=== PATIENT | male | born 1955 | race Caucasian/White ===

== ENCOUNTER 2020-03-03 12:40 | Emergency (ER) | payer MEDICAID, SELFPAY ==
[2020-03-03 12:44] VITALS: BP 109/74; PULSE 76; RESP 16; TEMP 36.6; O2SAT 97; BMI 32.5
--- NOTE | 2020-03-03 12:51 | ED_ITS ---
HPI - Abdominal Pain General: Chief Complaint: Abdominal Pain Stated Complaint: lower abd pain Time Seen by Provider: 03/03/20 12:43 Source: patient Mode of arrival: ambulatory Limitations: no limitations History of Present Illness: HPI narrative: Patient is a very nice 65-year-old gentleman here for complaints of lower abdominal pain that initially began a few days ago. Patient states he initially noticed the pain when he was outside working and especially with bending over. Patient states pain was initially intermittent in nature however throughout today has been more constant and worsened by bumps in the road on the way here. He reports normal bowel movements. Patient has not had any nausea or vomiting. He does report some mild dysuria without urgency, hesitancy, hematuria. He has no penile discharge, testicular pain/swelling. Patient states he has a previous history of diverticulitis that has presented similarly. He has not been running fevers. MD elicited complaint: abdominal pain Pertinent past history: diverticulitis Onset (ago): day(s) Pain Consistency: intermittent Location: Suprapubic Severity: moderate Radiation: none Migration to: no migration Relieving factors: nothing Associated Symptoms: Reports no associated symptoms and dysuria; Denies bloating, change in bowel habits, change in stool character, chills, coffee ground emesis, constipation, diarrhea, fever(s), heartburn, hematochezia, hematemesis, fecal incontinence, melena, nausea and vomiting Review of Systems Const: Denies: fever, chills, body aches, change in appetite, change in weight, fatigue, malaise or night sweats Card: Denies: chest pain Resp: Denies: shortness of breath GI: Reports: abdominal pain; Denies: nausea, vomiting, vomiting blood, coffee grounds in vomit, heartburn/indigestion, feeling full early, diarrhea, constipation, bloating, fecal incontinence, change in bowel habits, painful bowel movements, rectal pain, rectal swelling, rectal itching, change in stool character, blood in stool, black tarry stool, white/light colored stool or fatty stool : Reports: painful urination; Denies: flank pain, difficulty urinating, urinary frequency, urinary urgency, urinary hesitancy, change in urine stream, urinary incontinence, genital pain, genital lesion, penile discharge, testicular pain, testicular mass or scrotal swelling Musc: Denies: neck pain or back pain Skin/Breast: Denies: rash Neuro: Denies: headache, numbness in extremities, weakness in extremities or changes in sensation PFSH ED PFSH: Social History Smoking and tobacco status: former smoker Quit status (tobacco): has quit using tobacco Alcohol intake: current Alcohol intake frequency: holidays/special occasions only Physical Exam Const: COMMON NORMALS: no apparent distress, oriented x3, no limitations and alert NUTRITIONAL APPEARANCE: overweight HENMT: COMMON NORMALS: normocephalic and head/scalp atraumatic HEAD & SCALP: normocephalic and atraumatic Resp: COMMON NORMALS: normal respiratory effort and clear to auscultation bilaterally AUSCULTATION: clear to auscultation bilaterally Cardio: COMMON NORMALS: regular rate and regular rhythm RATE: regular rate RHYTHM: regular rhythm GI: COMMON NORMALS: normal to inspection, nondistended, normoactive bowel sounds, no hepatosplenomegaly and no masses AUSCULTATION: Yes normoactive bowel sounds PALPATION: Yes tender (suprapubic ) Details: LLQ and RLQ and Yes no hepatosplenomegaly : COMMON NORMALS: Yes no CVA tenderness BLADDER/KIDNEY EXAM: Yes no CVA tenderness Back/Pelvis: COMMON NORMALS: no CVA tenderness Extremity: COMMON NORMALS: normal to inspection Neuro: COMMON NORMALS: oriented x3 SENSORIUM/ORIENTATION: Yes alert Skin: COMMON NORMALS: no rashes or lesions noted GENERAL SKIN EXAM: no rashes or lesions noted Course Vital Signs: Vital signs: Vital Signs Temperature 97.8 F 03/03/20 12:44 Pulse Rate 70 03/03/20 14:36 Respiratory Rate 16 03/03/20 14:36 Blood Pressure 148/88 03/03/20 14:36 Pulse Oximetry 97 03/03/20 14:36 MDM - Abdominal Pain Lab Data: Labs: Lab Results 03/03/20 03/03/20 03/03/20 Range/Units 12:53 12:53 13:09 WBC 11.4 H (4.0-10.0) 10^3/ uL RBC 4.93 (4.1-5.3) 10^6/u L Hgb 15.9 (11.7-16.6) g/dL Hct 48.0 (42.0-52.0) % MCV 97.4 H (80-94) fL MCH 32.3 (28.0-34.0) pg MCHC 33.1 (30.0-36.0) g/dL RDW 13.7 (12.1-15.1) % Plt Count 199 (130-400) 10^3/c mm MPV 11.3 H (7.4-10.4) fL Neut % (Auto) 72.5 % Lymph % (Auto) 16.3 % Piute % (Auto) 9.3 % Eos % (Auto) 1.2 % Baso % (Auto) 0.4 % Neut # (Auto) 8.3 H (1.8-7.7) 10^3/u L Lymph # (Auto) 1.9 (0.8-4.8) 10^3/u L Piute # (Auto) 1.1 H (0.2-0.9) 10^3/u L Eos # (Auto) 0.1 (0.0-0.8) 10^3/u L Baso # (Auto) 0.1 (0.0-0.1) 10^3/u L Nucleated RBC % (a uto) 0 % Nucleated RBCs # 0.0 /100WBC Sodium 136 (136-145) mmol/L Potassium 5.0 (3.5-5.1) mmol/L Chloride 98 (98-107) mmol/L Carbon Dioxide 25 (22-29) mmol/L Anion Gap 18.0 (5-19) BUN 20 (8-23) mg/dL Creatinine 1.0 (0.7-1.2) mg/dL GFR Calculation 75.2 L (90-130) mL/min Glucose 121 H (65-115) mg/dL Calculated Osmolal ity 280 L (285-295) mOsm/k g Calcium 9.7 (8.5-10.5) mg/dL Magnesium 1.8 (1.7-2.3) mg/dL Total Bilirubin 1.3 H (0.15-1.2) mg/dL AST 19 (0-40) U/L ALT 20 (0-41) U/L Alkaline Phosphata se 59 (40-130) IU/L Total Protein 7.3 (6.6-8.7) g/dL Albumin 4.2 (3.5-5.2) g/dL Globulin 3.1 (1.3-4.6) g/dL Lipase 10 L (13-60) U/L Urine Color Yellow (Yellow) Urine Appearance Clear (CLEAR) Urine pH 5 (5-7) Ur Specific Gravit y 1.020 (1.005-1.030) Urine Protein Trace (Negative) Urine Glucose (UA) Norm (Normal) Urine Ketones 1+ H (Negative) Urine Blood Neg (Negative) Urine Nitrate Negative (Negative) Urine Bilirubin 1+ H (NEGATIVE) Urine Urobilinogen 1 H (Negative) mg/dL Ur Leukocyte Margo ase Negative (Negative) Urine RBC None (0-2) /hpf Urine WBC 0-4 H (0-5) /hpf Ur Squamous Epith Cells None (0-5) Urine Bacteria 1+ H (NONE) Hyaline Casts 10-15 H Urine Mucus 3+ Imaging Data ^: CT Abd/Pel: Radiologist's impression: [place] [address] CT Scan Report Signed Patient: Yayo Rivera Unit #: [id number] : 1955 Age/Sex: 65 / M ADM Date: 03/03/20 Loc: ER Room/Bed: Attending Dr: Ordering Provider/Ordering MD: Fabi Sevilla Date of Service: 03/03/20 Procedure(s): CT abdomen pelvis w con* [id number] Accession Number(s): [id number] Report Number: [id number] PROCEDURE INFORMATION: Exam: CT Abdomen And Pelvis With Contrast Exam date and time: 03/03/2020 1:14 PM Age: 65 years old Clinical indication: Abdominal pain; Localized; Prior surgery; Surgery date: 6+ months; Surgery type: Ulcer; Patient HX: C/O lower abd/pelvic pain x 3 days - HX of diverticulitis; Additional info: Lower abdominal pain; Previous HX diverticulitis TECHNIQUE: Imaging protocol: Computed tomography of the abdomen and pelvis with intravenous contrast. Total DLP: 1921.99 mGy-cm Radiation optimization: All CT scans at this facility use at least one of these dose optimization techniques: automated exposure control; mA and/or kV adjustment per patient size (includes targeted exams where dose is matched to clinical indication); or iterative reconstruction. Contrast material: OMNI 300; Contrast volume: 95 ml; Contrast route: 20G; COMPARISON: No relevant prior studies available. FINDINGS: Liver: Multiple low-density hepatic cysts of varying size. The largest left lobe cyst measures 6.2 cm. Gallbladder and bile ducts: Normal. No calcified stones. No ductal dilation. Pancreas: Normal. No ductal dilation. Spleen: Normal. No splenomegaly. Adrenals: Small bilateral approximately 1 cm solid adrenal nodules which are too small to characterize but probably benign adenomas. Kidneys and ureters: Multiple bilateral renal cysts of varying size. The largest right renal lower pole cyst measures 3.8 cm. Probable hyperdense 3.7 cm right renal lower pole cyst medially (series 2, axial image 42). A right renal ultrasound could further evaluate as clinically indicated. The largest left renal lower pole cysts measure 2.8 and 2.3 cm. Stomach and bowel: Moderate sigmoid colon diverticulosis changes. Distal sigmoid colon also displays some wall thickening and adjacent fat haziness consistent with mild acute diverticulitis. Appendix: No evidence of appendicitis. Intraperitoneal space: No free air. No significant fluid collection. Vasculature: Mild aortoiliac atherosclerotic calcification. Lymph nodes: Unremarkable. No enlarged lymph nodes. Bladder: Unremarkable as visualized. Reproductive: Focal prostatic calcification. Bones/joints: L5-S1 degenerative disc disease, chronic. Soft tissues: Unremarkable. CT/CT abdomen pelvis w con* [id number] IMPRESSION: 1.) Mild acute sigmoid diverticulitis. 2.) Multiple hepatic and renal cysts as described above. Majority of cysts have a benign appearance. Probable hyperdense 3.7 cm right renal lower pole cyst medially (series 2, axial image 42). A right renal ultrasound could further evaluate as clinically indicated. 3.)Small bilateral approximately 1 cm solid adrenal nodules which are too small to characterize but probably benign adenomas. Radiation Dose CTDIVOL = (mGy): DLP = 1921.99 (mGy-cm) Dictated By: Jaycob Smith MD Signed By: Jaycob Smith MD Signed Date/Time: 03/03/201413 DD/ 11 Discharge Plan Discharge Patient Disposition: Home, Self-Care Clinical Impression: Diverticulitis of sigmoid colon Condition: Stable Prescriptions: New ciprofloxacin HCl 500 mg tablet 500 mg PO Q12H Qty: 14 RF: 0 metronidazole 500 mg tablet 500 mg PO Q8H 7 Days Qty: 21 RF: 0 hydrocodone-acetaminophen 5-325 mg tablet 1 tab PO Q6H PRN (Reason: pain) Qty: 14 RF: 0 No Action aspirin [Adult Low Dose Aspirin] 81 mg tablet,delayed release (DR/EC) 81 mg PO DAILY RF: 0 vitamin B complex [B Complex-Vitamin B12] Tablet 1 tab PO QAM RF: 0 carvedilol 25 mg tablet 25 mg PO BID RF: 0 Entresto 49-51 mg tablet 1 tab PO BID RF: 0 magnesium oxide 500 mg tablet 500 mg PO DAILY RF: 0 prednisone 20 mg tablet 20 mg PO DAILY PRN (Reason: gout) RF: 0 ascorbic acid (vitamin C) 1,000 mg tablet 1 gm PO DAILY RF: 0 spironolactone 25 mg tablet 37.5 mg PO DAILY Qty: 45 RF: 6 Xarelto 20 mg tablet 20 mg PO DAILY Qty: 30 RF: 3 atorvastatin 20 mg tablet 20 mg PO DAILY Qty: 90 RF: 3 alprazolam 0.5 mg tablet 0.5 mg PO DAILY PRN (Reason: anxiety) Qty: 30 RF: 0 dibucaine 1 % ointment 1 applic CO QID PRN (Reason: pain) Qty: 56.7 RF: 0 Atrovent HFA 17 mcg/actuation HFA aerosol inhaler 2 puff INHALATION DAILY Qty: 12.9 RF: 3 cholecalciferol (vitamin D3) 1,250 mcg (50,000 unit) capsule 50,000 unit PO Q7D RF: 0 allopurinol 100 mg tablet 100 mg PO BID RF: 0 trazodone 100 mg tablet 100 mg PO BEDTIME RF: 0 Discharge Orders: Discharge Order (Routine); Ordered 03/03/20 Ordered By: Fabi Sevilla Referrals: Wilman Larios MD [Primary Care Provider] - Patient Instructions: Diverticulitis (ED) Activity Restrictions/Additional Instructions: Begin your antibiotics promptly. Return to the emergency department for any worsening pain, nausea and vomiting keeping you from holding down your antibiotics, fevers greater than 100.4, or any other concerns you may have. I hope you begin to feel better soon. Discharge Date/Time: 03/03/20 14:37 Coding Level of Care Code ED Vp [employer] [facility] Fwd Exam Comprehensive
[2020-03-03 12:57] LABS: Basophils # 0.1 10^3/uL (0.0-0.1); Basophils % 0.4 %; Eosinophils # 0.1 10^3/uL (0.0-0.8); Eosinophils % 1.2 %; Hemoglobin 15.9 g/dL (11.7-16.6); Lymphocytes # 1.9 10^3/uL (0.8-4.8); Lymphocytes % 16.3 %; Mean Corpuscular HGB Conc 33.1 g/dL (30.0-36.0); Mean Corpuscular Hemoglobin 32.3 pg (28.0-34.0); Mean Corpuscular Volume 97.4 fL (80-94); Mean Platelet Volume 11.3 fL (7.4-10.4); Monocytes # 1.1 10^3/uL (0.2-0.9); Monocytes % 9.3 %; Neutrophils # 8.3 10^3/uL (1.8-7.7); Neutrophils % 72.5 %; Nucleated Red Blood Cells % 0 %; Platelet Count 199 10^3/cmm (130-400); Red Blood Count 4.93 10^6/uL (4.1-5.3); Red Cell Distribution Width 13.7 % (12.1-15.1); White Blood Count 11.4 10^3/uL (4.0-10.0)
[2020-03-03 13:20] LABS: Alanine Aminotransferase 20 U/L (0-41); Albumin Level 4.2 g/dL (3.5-5.2); Alkaline Phosphatase 59 IU/L (40-130); Aspartate Amino Transferase 19 U/L (0-40); Blood Urea Nitrogen 20 mg/dL (8-23); Calcium 9.7 mg/dL (8.5-10.5); Carbon Dioxide 25 mmol/L (22-29); Chloride 98 mmol/L (98-107); Globulin 3.1 g/dL (1.3-4.6); Glomerular Filtration Rate 75.2 mL/min (90-130); Glucose 121 mg/dL (65-115); Lipase 10 U/L (13-60); Magnesium 1.8 mg/dL (1.7-2.3); Osmolality Calculated 280 mOsm/kg (285-295); Sodium 136 mmol/L (136-145); Total Bilirubin 1.3 mg/dL (0.15-1.2); Total Protein 7.3 g/dL (6.6-8.7)
[2020-03-03 13:23] LABS: Bilirubin Urine 1+ (NEGATIVE); Blood Urine Neg (Negative); Glucose Urine UA Norm (Normal); Ketones Urine 1+ (Negative); Leukocyte Esterase Urine Negative (Negative); Nitrate Urine Negative (Negative); Protein Urine Trace (Negative); Urine Appearance Clear (CLEAR); Urine Color Yellow (Yellow); Urobilinogen Urine 1 mg/dL (Negative); pH Urine 5 (5-7)
[2020-03-03 13:28] LABS: Add Urine Culture? No; Bacteria Urine 1+; Mucus Urine 3+; WBC Urine 0-4 /hpf (0-5)
[2020-03-03] MEDS: iohexol 300 mg/mL 100 mL Btl IV (13:34)
[2020-03-03 14:36] VITALS: BP 148/88; PULSE 70; RESP 16; O2SAT 97
== END 2020-03-03 14:37 | disposition home or self-care (01) ==
PROVIDERS: Emergency Medicine; Emergency Provider Physician Assistant; Family Provider Internal Medicine; PCP Internal Medicine
DX: K57.32 Diverticulitis of large intestine without perforation or abscess without bleeding (principal); Z79.82 Long term (current) use of aspirin; Z87.891 Personal history of nicotine dependence
CPT/HCPCS: 12345; 74177; 80053; 81001; 83690; 83735; 85025; 99282; 99283; Q9967

== ENCOUNTER → 2020-11-13 10:45 | Outpatient (BNVA) | payer MEDICAID, SELFPAY | PROVIDERS: Family Provider Internal Medicine; PCP Internal Medicine; Visit Provider Internal Medicine Cardiovascular Disease | DX: I49.3 Ventricular premature depolarization (principal); I50.9 Heart failure, unspecified; I42.9 Cardiomyopathy, unspecified; I50.22 Chronic systolic (congestive) heart failure; I48.0 Paroxysmal atrial fibrillation; I42.0 Dilated cardiomyopathy; I25.10 Atherosclerotic heart disease of native coronary artery without angina pectoris; I10 Essential (primary) hypertension; E78.5 Hyperlipidemia, unspecified | CPT/HCPCS: 80053; 83735; 83880 ==

== ENCOUNTER 2020-12-02 14:38 | Outpatient (CLI) | payer MEDICAID, SELFPAY ==
--- NOTE | 2020-12-02 15:00 | USCV_ITS ---
Yayo Rivera Age: 65 Gender: M : 1955 Exam Date: 12/02/2020 14:51 Ordering Phys: Renetta Mejia MD ([email or web address]) Technologist: Lashae Alva [place]am [place] [facility] [place]ication: IRREGULAR HEART RATE BP: / HR: 80 Rhythm: PVCs Technical Quality: Adequate MEASUREMENTS (Male / Female) Normal Values 2D ECHO LV Diastolic Diameter PLAX 5.2 cm 4.2 - 5.9 / 3.9 - 5.3 cm LV Systolic Diameter PLAX 4.1 cm LV Chamber Size 4.5 cm IVS Diastolic Thickness 1.8 cm 0.6 - 1.0 / 0.6 - 0.9 cm IVS Systolic Thickness 1.8 cm LVPW Diastolic Thickness 1.5 cm 0.6 - 1.0 / 0.6 - 0.9 cm LVPW Systolic Thickness 1.8 cm RV Chamber Size 3.0 cm LVOT Diameter 2.0 cm LV Ejection Fraction 2D Teich 43.7 % LV Ejection Fraction MOD 2C 67.7 % LV Ejection Fraction 2C AL 68.6 % LA Diameter 4.6 cm LA Width 3.6 cm LA Height 5.4 cm RA Width 3.6 cm RA Height 5.4 cm Aorta at Sinotubular Diameter 3.7 cm M-MODE LV Diastolic Diameter MM 6.4 cm 4.2 - 5.9 / 3.9 - 5.3 cm LV Systolic Diameter MM 5.0 cm LV Ejection Fraction MM Teich 42.0 % IVS Diastolic Thickness MM 1.5 cm 0.6 - 1.0 / 0.6 - 0.9 cm IVS Systolic Thickness MM 1.7 cm LVPW Diastolic Thickness MM 1.5 cm 0.6 - 1.0 / 0.6 - 0.9 cm LVPW Systolic Thickness MM 1.5 cm Aortic Annulus Diameter 4.1 cm LA Ao Ratio MM 1.2 MV E Point Septal Separation 1.3 cm DOPPLER AV Peak Velocity 106.3 cm/s LVOT Peak Velocity 56.0 cm/s AV Area Cont Eq vti 1.7 cm squared AV Area Cont Eq pk 1.7 cm squared MV Area PHT 4.4 cm squared Mitral E to A Ratio 1.9 MV E' Velocity 38.5 cm/s Mitral E to MV E' Ratio 7.1 Mitral E to LV E' Lateral Ratio 5.9 Mitral E to LV E' Septal Ratio 9.0 TR Peak Velocity 176.7 cm/s TR Peak Gradient 12.5 mmHg TR Mean Velocity 109.0 cm/s TR Mean Gradient 5.6 mmHg TR Velocity Time Integral 28.0 cm TV Peak E Velocity 44.0 cm/s Right Atrial Pressure 3.0 mmHg Pulmonary Artery Systolic Pressu 15.5 mmHg PV Peak Velocity 54.0 cm/s RV Acceleration Time 0.1 s RV Ejection Time 0.3 s RV AcT/ET 0.5 FINDINGS Left Ventricle Mildly increased left ventricular cavity size. Moderately decreased left ventricular systolic function. Left ventricular ejection fraction is estimated at 30-35 %. Moderate global left ventricular hypokinesis. Abnormal septal motion consistent with conduction abnormality. Right Ventricle Upper normal right ventricular size and systolic function. Right Atrium Upper normal right atrial size. Left Atrium Mildly increased left atrial size. Mitral Valve Structurally normal mitral valve. No mitral valve stenosis. No mitral valve regurgitation. Aortic Valve Structurally normal trileaflet aortic valve. No aortic valve stenosis. Tricuspid Valve Structurally normal tricuspid valve. Trace to mild tricuspid valve regurgitation. Pulmonic Valve Pulmonic valve not well visualized. Pericardium No pericardial effusion. Aorta Aorta not well visualized. CONCLUSIONS 1. Mildly increased left ventricular cavity size. Moderately decreased left ventricular systolic function. Left ventricular ejection fraction is estimated at 30-35 %. Moderate global left ventricular hypokinesis. 2. Upper normal right ventricular size and systolic function. 3. No significant valvular abnormality. 4. When compared to previous study dated 05/04/2019, left ventricular systolic function has decreased. Frequent PVC's noted throughout the study. Renetta Mejia MD (Electronically Signed) Final Date: 08 December 2020 15:13 S
== END 2020-12-02 14:39 | disposition home or self-care (01) ==
LOC: US 14:40
PROVIDERS: PCP Internal Medicine; Visit Provider Internal Medicine Cardiovascular Disease
DX: I49.3 Ventricular premature depolarization (principal)
CPT/HCPCS: 93306

== ENCOUNTER 2021-01-13 14:26 | Outpatient (CLI) | payer MEDICARE, MEDICAID, SELFPAY ==
[2021-01-13 15:07] LABS: Basophils # 0.1 10^3/uL (0.0-0.1); Basophils % 0.7 %; Eosinophils # 0.1 10^3/uL (0.0-0.8); Hemoglobin 14.6 g/dL (11.7-16.6); Lymphocytes # 2.2 10^3/uL (0.8-4.8); Lymphocytes % 30.3 %; Mean Corpuscular Volume 97.3 fL (80-94); Mean Platelet Volume 11.3 fL (7.4-10.4); Monocytes # 0.7 10^3/uL (0.2-0.9); Neutrophils # 4.03 10^3/uL (1.8-7.7); Neutrophils % 56.9 %; Nucleated Red Blood Cells % 0 %; Platelet Count 217 10^3/cmm (130-400); Red Blood Count 4.42 10^6/uL (4.1-5.3); Red Cell Distribution Width 12.9 % (12.1-15.1); White Blood Count 7.1 10^3/uL (4.0-10.0)
[2021-01-13 15:15] LABS: INR 1.92 (0.83-1.21); Prothrombin Time (Patient) 22.7 Seconds (12.0-15.1)
[2021-01-13 15:20] LABS: Anion Gap 12.4 (5-19); Blood Urea Nitrogen 22 mg/dL (8-23); Calcium 8.5 mg/dL (8.5-10.5); Carbon Dioxide 27 mmol/L (22-29); Chloride 103 mmol/L (98-107); Glomerular Filtration Rate 75.2 mL/min (90-130); Glucose 93 mg/dL (65-115); Osmolality Calculated 289 mOsm/kg (285-295); Potassium 4.4 mmol/L (3.5-5.1); Sodium 138 mmol/L (136-145)
== END 2021-01-13 14:27 | disposition home or self-care (01) ==
LOC: LAB 14:39
PROVIDERS: PCP Internal Medicine; Visit Provider Internal Medicine Cardiovascular Disease
DX: Z01.818 Encounter for other preprocedural examination (principal); I25.10 Atherosclerotic heart disease of native coronary artery without angina pectoris
CPT/HCPCS: 36415; 80048; 85025; 85610; 87635

== ENCOUNTER 2021-01-17 09:11 | Observation (INO) | payer MEDICARE, MEDICAID, SELFPAY ==
[2021-01-17] VITALS (52 sets, daily range): BP systolic 97–133; BP diastolic 64–94; PULSE 67–91; RESP 7–28; TEMP 36.8–37; O2SAT 93–99; BMI 34.2
[2021-01-17] MEDS: diphenhydrAMINE 50 mg Capsule PO (06:40)
--- NOTE | 2021-01-17 07:00 | XACV_ITS ---
Ht: 185 cm Wt: 124 kg BSA: 2.57 m2 Gender: Male : 1955 Any Known Allergies: Other Exam Priority: Routine Procedure(s): Procedure Description: Diagnostic procedure Procedure Description: Left Heart Catheterization Procedure Description: Left ventriculography Procedure Description: O2 saturation Diagnostic Cath Status: Elective Diagnostic Findings * Right heart cath findings: RA pressure: 23/19(20)mmHg RV pressure: 40/10, 21 mmHg PA pressure: 35/23, 30 mmHg PCW: 25/25, 23 mmHg Cardiac output by Madelin: 5.49 L/min Cardiac index by Madelin: 2.2 L/min/min meter2 TP mmHg PVR: 1.27 Wood units. * No significant disease noted in the Left Main, LAD, Circumflex, or RCA coronary arteries. * Coronary angiography shows right dominance. Conclusions 1. Elevated right and left sided cardiac pressures. 2. Non ischemic cardiomyopathy. 3. No significant disease noted in the Left Main, LAD, Circumflex, or RCA coronary arteries. RCA has an anterior take off. 4. Mild post capillary pulmonary hypertension. 5. Moderate left ventricular systolic dysfunction. Ejection fraction of 35%. Recommendations * Guideline directed medical therapy. * Aggresive risk factor control. * Uptitrate diuretic therapy. * Outpatient cardiology follow up. Diagnostic RX Recommendation: medical therapy and/or counseling Ventriculography Ejection Fraction: 35.0 % Pressures Phase:Rest AO : 112 / 71 ( 89 ) @ 3:27:00 AM 112 / 62 ( 76 ) @ 3:27:00 AM LV : 106 / 14 / @ 3:26:00 AM 107 / 14 / @ 3:26:00 AM 115 / 12 / @ 3:27:00 AM 113 / 12 / @ 3:27:00 AM RV : 40 / 10 / @ 3:05:00 AM PA : 35 / 23 ( 30 ) @ 3:04:00 AM RA : a wave = v wave = mean = 20 @ 3:01:00 AM O2 Content Phase:Rest PA : O2 Content O2: 68.1 @ 3:27:00 AM Saturations Phase:Rest AO : 97 @ 3:27:00 AM PA : 68 @ 3:27:00 AM Cardiac Output Phase:Rest Madelin : 5 @ 3:27:00 AM Madelin Cardiac Index: 2 @ 3:27:00 AM Valves Phase:DefaultPhase AV : 0.0 @ 8:34:59 AM AV Mean Gradient: 0.0 @ 8:34:59 AM Clinical Evaluation EBL: 5mL-10mL Procedural Details Procedure Consent Obtained. Admit Source: Out Patient. Pre-Procedure Time Out. Identified patient by full name and date of as verbalized by the patient/guarantor. Does the consent match the physician's order: Yes. Accurate & Complete Informed Consent: Yes. Inpatient/Outpatient History & Physical on Chart: Yes. If H&P is completed, is and addenduem needed: N/A; If yes, is the addendum complete: N/A. Visualize and Verify Site with Patient/Guarantor: N/A. Relevant Radiology Images available: N/A. Pre-op teaching completed and patient verbalized understanding. The risks, benefits, and alternatives of sedation and/or procedure were discussed by physician. The patient agrees to continue. Procedure started. Correct patient, site and procedure confirmed by cath team. PERRLA. Strong, equal hand criminal psychologist bilaterally. Lungs clear x 5 lobes. IV Site on Arrival: 20 gauge in the right anticubital. Pre Procedural Pulses: bilateral dorsalis pedis was 2+. Pre Procedural Pulses: bilateral posterior tibial was Doppled. Pre Procedural Pulses: bilateral radial was 2+. Oxygen started at 2liters/min via nasal canula. bilateral groins was prepped with chloroprep then draped in the usual sterile fashion. right radial was prepped with chloroprep then draped in the usual sterile fashion. Baseline sample Acquired. HR: 101 BPM. Physician notified. Physician arrived. Physician scrubbed in. Immediate Pre-Procedure Time Out. Correct Patient: Yes; Correct Procedure: Yes; Correct Site: Yes; Correct Patient Position: Yes; Correct Supplies: Yes; Dried Flammable Prep: Yes; Blood Products Available: N/A;. sheath wire going through IV catheter. IV catheter out. Lidocaine 1% infiltrated to the right brachial. Arterial access obtained. Lancaster-Oniel MON catheter inserted. Lancaster-Oniel out. Lidocaine 1% infiltrated to the right radial. Arterial access obtained. drawing AO sat. A 5 icelandic TIG catheter in over wire. Multiple views taken of left coronary artery. Catheter redirected to the RCA. Multiple views taken of right coronary artery. Catheter out. A 5 icelandic 3DRC catheter in over wire. Catheter out. A 6 icelandic Angled Pig catheter in over wire. EDP Sample taken: LV 106/14,21; HR: 76 BPM; SpO2: 99%. LV gram performed in MAZA @ 10 mL/second for a total of 30 mL. EDP Sample taken: LV 115/12,22; HR: 77 BPM; SpO2: 99%. Pullback taken: LV 113/12,19; AO 112/71(89); Mean: 0mmHg, Peak to Peak: 0mmHg, SEP: 10sec/min; HR: 78 BPM; SpO2: 99%. Catheter out. TR band placed. Hemostasis obtained. Sheath(s) removed and manual pressure held until hemostasis was achieved. Sterile 4x4 and Op-site applied to the puncture site. No oozing or hematoma noted. Post sheath removal instructions were given and the patient verbalized understanding. Post Procedure: Pulses reassessed and unchanged. PERRLA. Strong, equal hand criminal psychologist bilaterally. No VTE prophylaxis required. Medication's Wasted: Other = versed 1 mg. Medication's Wasted: Nitro = 49.8 mg. Medication's Wasted: Heparin = 1000 units. Medication's Wasted: Lidocaine 1% = 18 mL. Total IV fluids: 75.4 mL. Contrast type used: Visipaque 320 mgI/mL, 500 mL bottle. Contrast Material : Visipaque 119 ml. A TR Band was successful obtaining hemostatsis at the Right Radial artery insertion site. A Manual Compression was successful obtaining hemostatsis at the Right Brachial Vein insertion site. [facility] Clinical Fraility Score: 3: Managing Well. 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 Chest Pain Symptom Assessment: Atypical Angina. Cardiovascular Instability: No,. Post-op diagnosis:non obstructive CAD, non ischemic cardiomyopathy. Complications: none. Estimated blood loss: 5mL-10mL. Procedure completed. Patient transferred by wheelchair to 1st floor. Vital chart was stopped. Access Site Site: Right Brachial Vein Sheath Size: 6 Fr Hemostasis Method: Manual Compression Hemostasis Success: Successful Site: Right Radial artery Sheath Size: 6 Fr Hemostasis Method: TR Band Hemostasis Success: Successful Procedure Medications Start: 7:56 AM Stop: 7:56 AM Medication: Versed Amount: 1 mg Route: I.V. Start: 7:57 AM Stop: 7:57 AM Medication: Fentanyl Amount: 50 mcg Route: I.V. Start: 8:06 AM Stop: 8:06 AM Medication: Versed Amount: 1 mg Route: I.V. Start: 8:06 AM Stop: 8:06 AM Medication: Fentanyl Amount: 50 mcg Route: I.V. Start: 8:11 AM Stop: 8:11 AM Medication: Nitrogylcerin Amount: 200 mcg Route: I.A. Start: 8:13 AM Stop: 8:13 AM Medication: Heparin Amount: 5000 units Route: I.V. Start: 8:23 AM Stop: 8:23 AM Medication: Versed Amount: 1 mg Route: I.V. I, the attending physician, have reviewed and verified all procedure medications. Yes, all medications given per verbal order History/Risk Factors Hypertension: Yes Dyslipidemia: Yes Report Signatures Finalized by Fernandez Hanley MD on 01/27/2021 05:48 PM
--- NOTE | 2021-01-17 07:32 | P.HP_ITS ---
Providers/Chief Complaint Admitting Physician: Fernandez Hanley MD Primary Care Provider: Wilman Larios MD Chief Complaint: Cardiac Catheterization History of Present Illness 65 yo man with PMHx of long standing atrial fibrillation x 15 years, s/p hybrid Maze (VATS) and atrial fibrillation ablation in Jun 2017. He was previously on Amiodaone, digoxin and lisinopril that was stopped eventually. He also has h/o nose bleeds with Edoxan and difficult to maintain INR with coumadin. HE underwent Hepatitis C treatment successfuly and has been free for last several months. He also has h/o nonischemic cardiomyopathy LVEF 30% in July 2017, peptic ulcer, COPD, hypertension, history of methamphetamine and tobacco abuse, gout, and underwent stress test that was normal. He also has COPD, gout,hypertension, insomnia, h/o gastric ulcer, anxiety/depression, obesity,adhesive capsulitis of left shoulder and diverticulitis. 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 Patient had recent Covid infection and since then he has been having symptoms of palpitations, feeling weak and significant dyspnea on exertion. Echocardiogram was performed that showed severely reduced LV systolic function of 30 to 35%. Patient also has frequent PVCs. Plan for right and left heart cath today. Review of Systems Narrative: CONSTITUTIONAL: No fever chills weight loss or gain or night sweats. [] HEENT: Normocephalic, atraumatic.[] RESPIRATORY: No cough, sputum, hemoptysis or wheezing.[] CARDIOVASCULAR: Has shortness of breath, edema, presyncope, no chest pain, PND, orthopnea GI: no nausea vomiting diarrhea. [] BIOLOGICAL TECHNICIAN: No numbness, tingling, weakness or loss of function in any part of the body. [] MUSCULOSKELETAL: No knee or joint pain or rashes. [] Medications/Allergies Home Medications Medication Instructions Recorded Confirmed Last Taken Type ascorbic acid (vitamin C) 1,000 mg 1 gm PO DAILY tab 11/15/19 01/16/21 01/16/21 09:30 History tablet aspirin 81 mg tablet,delayed 81 mg PO DAILY tab 11/15/19 01/16/21 01/17/21 05:00 History release magnesium oxide 500 mg tablet 500 mg PO DAILY tab 11/15/19 01/16/21 01/16/21 09:30 History prednisone 20 mg tablet 20 mg PO DAILY PRN tab 11/15/19 01/16/21 01/16/21 09:30 History vitamin B complex 1 tab PO QAM 11/15/19 01/16/21 01/16/21 09:30 History alprazolam 0.5 mg tablet 0.5 mg PO DAILY PRN #30 tab 08/05/20 01/16/21 01/16/21 21:00 Rx sacubitril 49 mg-valsartan 51 mg 1 tab PO BID #180 tab 10/04/20 01/16/21 01/16/21 09:30 Rx tablet spironolactone 25 mg tablet 12.5 mg .ROUTE .COMPLEX tab 11/13/20 01/16/21 01/16/21 09:30 History torsemide 20 mg tablet 20 mg PO DAILY #30 tab 11/15/20 01/16/21 01/16/21 09:30 Rx trazodone 100 mg tablet 100 mg PO BEDTIME #30 tab 11/21/20 01/16/21 01/16/21 21:00 Rx cholecalciferol (vitamin D3) 1,250 50,000 unit PO .weekly #4 cap 12/12/20 01/16/21 01/16/21 09:30 Rx mcg (50,000 unit) capsule ipratropium bromide 17 2 puff INHALATION DAILY #12.9 gm 12/20/20 01/16/21 01/16/21 09:30 Rx mcg/actuation HFA aerosol inhaler allopurinol 100 mg tablet 100 mg PO BID #60 tab 12/29/20 01/17/21 01/16/21 18:00 Rx rivaroxaban 20 mg tablet 20 mg PO DAILY #30 tab 12/30/20 01/16/21 01/16/21 09:30 Rx atorvastatin 20 mg tablet 20 mg PO DAILY #90 tab 01/03/21 01/16/21 01/16/21 21:00 Rx carvedilol 12.5 mg tablet 18.75 mg PO BID #90 tab 01/07/21 01/16/21 01/16/21 09:30 Rx potassium 99 mg PO DAILY 01/16/21 01/16/21 01/16/21 09:30 History Allergies Allergy/AdvReac Type Severity Reaction Status Date / Time diltiazem [From Cardize] Allergy Unknown ADR/ALGY-Hy Verified 12/10/20 15:16 potension PFSH Acute PFSH: Medical History Atrial fibrillation s/p hybrid Maze (VATS) and atrial fibrillation ablation in Jun 2017 Cardiomyopathy COPD (chronic obstructive pulmonary disease) Dyslipidemia HTN (hypertension) Surgical History H/O cardiac radiofrequency ablation H/O circumcision H/O colonoscopy 3 yrs ago, H/O heart surgery Maze H/O removal of cyst thyroid, testicle H/O umbilical hernia repair Family History Father Myocardial infarct Mother Aneurysm Grandmother Cancer liver Other CAD (coronary artery disease) Denies family history of Diabetes Anesthesia complication Bleeding disorder Social History Smoking and tobacco status: former smoker Quit status (tobacco): has quit using tobacco Alcohol intake: current Alcohol intake frequency: holidays/special occasions only Household members: family Marital status: Single Current occupational status: retired History of recent travel: No Vitals/I&O/Wt Last Vital Signs Temp 98.2 F 01/17/21 06:05 Pulse 67 01/17/21 06:05 Resp 18 01/17/21 06:05 BP 103/76 01/17/21 06:05 Pulse Ox 97 01/17/21 06:05 Weight last 48 hrs Weight 274 lb Physical Exam Narrative: EXAM NARRATIVE: GENERAL: Patient is alert, awake and oriented x3. [] NECK: No jugular vein distension. [] HEENT: No cyanosis. No icterus. No pallor. [] HEART: Regular S1 and S2. No murmur, rub or gallop. [] LUNGS: Clear to auscultate bilaterally. [] ABDOMEN: Soft, nontender and nondistended. Positive bowel sounds. No guarding, rebound or tenderness. [] CENTRAL NERVOUS SYSTEM: Grossly nonfocal. [] EXTREMITIES: Lower extremities with 1+ edema bilaterally. Pulses palpable in the lower extremities, both dorsalis pedis and posterior tibial. [] A&P Assessment and plan (1) PVC (premature ventricular contraction): Status: Acute (2) HTN (hypertension): Status: Acute Qualifiers: Hypertension type: essential hypertension Qualified Code(s): I10 - Essential (primary) hypertension (3) Dyslipidemia: Status: Acute (4) Cardiomyopathy: Status: Acute (5) Atrial fibrillation: Status: Acute Qualifiers: Atrial fibrillation type: paroxysmal Qualified Code(s): I48.0 - Paroxysmal atrial fibrillation Patient has recent drop in LV systolic function along with symptoms of worsening dyspnea on exertion. He also has frequent PVCs. Will evaluate with right and left heart cath. Risks and benefits of the procedure have been described. Risks including bleeding, infection, abnormal heart rhythm, kidney function worsening, heart attack, stroke or have been described. Patient understands the risks and benefits and wants to proceed with the procedure. Attestations Medical Necessity Statement*: Care not expected to cross 2 midnights. Patient here for right and left heart cath with possible percutaneous coronary intervention. Coding Level of Care Code Acute Engineer Remote Control Diesel for Imani Keeley Diagnoses PVC (premature ventricular contraction) I49.3 HTN (hypertension) I10 Hypertension type: essential hypertension Dyslipidemia E78.5 Cardiomyopathy I42.9 Atrial fibrillation I48.0 Atrial fibrillation type: paroxysmal
--- NOTE | 2021-01-17 08:45 | PC.NURSE ---
Received report from JOSE Reyes. Patient has TR band intact and pressure dressing to right brachial intact. No hematoma, no bleeding or oozing. Patient vital signs stable patient is alert and oriented. Patient has been educated on activity restrictions, and oriented to room and call jha. Will continue to monitor.
[2021-01-17] MEDS: pneumococcal (23 valent) SDV 0.5 mL IM (12:21)
--- NOTE | 2021-01-17 13:52 | PC.NURSE ---
TR band removed from R Radial, site is clean, no hematoma, no bleeding or oozing bandaide applied. Pressure dressing to R Brachial removed, site is clean, no hematoma, bleeding or oozing. Bandaide applied. Patient has been educated on discharge instructions and post angiogram care. Patient verbalizes understanding of instructions and has no further questions.
== END 2021-01-17 14:26 | disposition home or self-care (01) ==
LOC: CSU 09:11
PROVIDERS: Admitting Provider Internal Medicine; PCP Internal Medicine; Visit Provider Internal Medicine
DX: I49.3 Ventricular premature depolarization (principal); I10 Essential (primary) hypertension; E78.5 Hyperlipidemia, unspecified; I42.9 Cardiomyopathy, unspecified; I48.0 Paroxysmal atrial fibrillation; Z87.11 Personal history of peptic ulcer disease; J44.9 Chronic obstructive pulmonary disease, unspecified; F17.210 Nicotine dependence, cigarettes, uncomplicated; Z86.16 Personal history of COVID-19; Z79.52 Long term (current) use of systemic steroids; Z79.82 Long term (current) use of aspirin; Z87.891 Personal history of nicotine dependence
CPT/HCPCS: 36415; 90471; 90732; 93453; C1751; C1769; C1887; C1894; G0378; J1644; J2250; J3010; J3490; J7030; Q0163; Q9967

== ENCOUNTER → 2021-01-24 10:51 | Outpatient (BNVA) | payer MEDICARE, MEDICAID, SELFPAY | PROVIDERS: PCP Internal Medicine; Visit Provider Nurse Practitioner Family | DX: I25.10 Atherosclerotic heart disease of native coronary artery without angina pectoris (principal) | CPT/HCPCS: 80048 ==

== ENCOUNTER 2021-02-19 12:49 | Outpatient (CLI) | payer MEDICARE, MEDICAID, SELFPAY ==
--- NOTE | 2021-02-19 13:01 | XR_ITS ---
WS: [id number] KUB, AP view, 02/19/2021 Clinical Data: R19.4 - Change in bowel habit Comparison: None. Findings: No abnormal intraabdominal masses or calcifications are seen. There is no dilatated small bowel or ev idence of obstruction. There is a minimal amount of air in the transverse colon. There is degenerative change of the L5-S1 disc level. XR/XR KUB [id number] Impression: Negative KUB.
== END 2021-02-19 12:50 | disposition home or self-care (01) ==
LOC: RAD 13:01
PROVIDERS: PCP Internal Medicine; Visit Provider Internal Medicine
DX: R19.4 Change in bowel habit (principal)
CPT/HCPCS: 74018

== ENCOUNTER → 2021-04-30 10:15 | Outpatient (BNVA) | payer MEDICARE, MEDICAID, SELFPAY | PROVIDERS: PCP Internal Medicine; Visit Provider Thoracic Surgery (Cardiothoracic Vascular Surgery) | DX: I42.9 Cardiomyopathy, unspecified (principal); Z20.822 Contact with and (suspected) exposure to COVID-19 | CPT/HCPCS: 87635 ==

== ENCOUNTER 2021-05-05 05:44 | Day surgery (SDC) | payer MEDICARE, MEDICAID, SELFPAY ==
[2021-04-30 11:57] VITALS: BMI 35.3
--- NOTE | 2021-04-30 12:02 | ECG_ITS ---
[facility] Test Date: 2021-04-30 Pat Name: Yayo Rivera Department: Room: Gender: Male Parts Consultant: : [id number] Requested By: Isabela Abdi Order Number: [id number] Filipe MD: Kami Hendrix M.D. Measurements Intervals [place] Rate: 69 P: 63 LA: 170 QRS: -41 QRSD: 118 T: 86 QT: 440 QTc: 473 Interpretive Statements SINUS RHYTHM WITH OCCASIONAL VENTRICULAR PREMATURE COMPLEXES MARKED LEFT AXIS DEVIATION [QRS AXIS < -30] LOW QRS VOLTAGE IN PRECORDIAL LEADS [QRS DEFLECTION < 1.0 mV IN CHEST LEADS] INCOMPLETE RIGHT BUNDLE BRANCH BLOCK [90+ ms QRS DURATION, TERMINAL R IN V1/V2, 40+ ms S IN I/aVL/V4/V5/V6] POSSIBLE ANTERIOR MYOCARDIAL INFARCTION [30 ms Q WAVE IN V3/V4, OR R < 0.2 mV IN V4], PROBABLY OLD No previous ECG available for comparison Electronically Signed On 04-30-2021 20:12:02 CDT by Kami Hendrix M.D. [id number]
--- NOTE | 2021-04-30 12:35 | ANES.PREANE2 ---
Pre-Anesthetic Assessment Pre-Anesthetic Assessment: Height/Weight: Height 1.88 m Weight 124.738 kg Preop Diagnosis: Cardiomyopathy Proposed Procedure: Operation Date: 05/05/21 07:00 Proposed Procedures p Defibrillator Placement(Not Applicable) - Ze Carty MD Familial anesthetic complications: None Social: Social History: No alcohol and No tobacco Comment: former smoker Exam: Pre-Anes Outpt Exam: alert, oriented x 3, clear to auscultation bilaterally and regular rate & rhythm Airway: Cervical ROM: WNL MP: 3 Dentition: False Pulmonary: Pulmonary: COPD CV/HEM: CV/HEM: Afib, Arrythmia, CHF and HTN Comments: Cath Conclusions 1. Elevated right and left sided cardiac pressures. 2. Non ischemic cardiomyopathy. 3. No significant disease noted in the Left Main, LAD, Circumflex, or RCA coronary arteries. RCA has an anterior take off. 4. Mild post capillary pulmonary hypertension. 5. Moderate left ventricular systolic dysfunction. Ejection fraction of 35%. GI: GI: GERD Anesthetic Plan: ASA status: 4 PFSH Anesthesia PFSH: Medical History (Updated 03/20/21 @ 09:40 by Wilman Larios MD) Atrial fibrillation s/p hybrid Maze (VATS) and atrial fibrillation ablation in Jun 2017 Cardiomyopathy COPD (chronic obstructive pulmonary disease) Dyslipidemia HTN (hypertension) Surgical History H/O cardiac radiofrequency ablation H/O circumcision H/O colonoscopy 3 yrs ago, H/O heart surgery Maze H/O removal of cyst thyroid, testicle H/O umbilical hernia repair Family History Father Myocardial infarct Mother Aneurysm Grandmother Cancer liver Other CAD (coronary artery disease) Denies family history of Diabetes Anesthesia complication Bleeding disorder Social History Smoking and tobacco status: former smoker Quit status (tobacco): has quit using tobacco Alcohol intake: current Alcohol intake frequency: holidays/special occasions only Household members: family Marital status: Single Current occupational status: retired History of recent travel: No Data Anesthesia Cardiac Studies: Holter Monitor 09/20/20
[2021-04-30 12:48] LABS: Add Urine Microscopic? NO; Charge for UA Resulting for Rev
[2021-04-30 12:52] LABS: Basophils # 0.1 10^3/uL (0.0-0.1); Basophils % 0.8 %; Eosinophils # 0.2 10^3/uL (0.0-0.8); Eosinophils % 3.1 %; Hemoglobin 15.6 g/dL (11.7-16.6); Lymphocytes # 2.3 10^3/uL (0.8-4.8); Lymphocytes % 28.9 %; Mean Corpuscular HGB Conc 33.9 g/dL (30.0-36.0); Mean Corpuscular Hemoglobin 33.1 pg (28.0-34.0); Mean Corpuscular Volume 97.7 fL (80-94); Mean Platelet Volume 11.9 fL (7.4-10.4); Monocytes # 0.7 10^3/uL (0.2-0.9); Monocytes % 8.5 %; Neutrophils # 4.55 10^3/uL (1.8-7.7); Neutrophils % 58.4 %; Nucleated Red Blood Cells % 0 %; Platelet Count 208 10^3/cmm (130-400); Red Blood Count 4.71 10^6/uL (4.1-5.3); Red Cell Distribution Width 13.2 % (12.1-15.1); White Blood Count 7.8 10^3/uL (4.0-10.0)
[2021-04-30 12:57] LABS: Bilirubin Urine Neg (Negative); Blood Urine Neg (Negative); Glucose Urine UA Norm (Normal); Ketones Urine Negative (Negative); Leukocyte Esterase Urine Negative (Negative); Nitrate Urine Negative (Negative); Protein Urine Neg (Negative); Urine Appearance Clear (CLEAR); Urine Color Yellow (Yellow); Urobilinogen Urine Norm (Negative); pH Urine 5 (5-7)
[2021-04-30 13:12] LABS: Anion Gap 11.2 (5-19); Blood Urea Nitrogen 24 mg/dL (8-23); Carbon Dioxide 29 mmol/L (22-29); Chloride 100 mmol/L (98-107); Glomerular Filtration Rate 84.7 mL/min (90-130); Glucose 112 mg/dL (65-115); Osmolality Calculated 287 mOsm/kg (285-295); Potassium 4.2 mmol/L (3.5-5.1); Sodium 136 mmol/L (136-145)
[2021-05-05] VITALS (13 sets, daily range): BP systolic 76–105; BP diastolic 54–70; PULSE 61–74; RESP 12–18; TEMP 36.1–37.1; O2SAT 90–97
--- NOTE | 2021-05-05 | SCC_ITS ---
Procedure Done: Single lead AICD implantation 363.3 seconds of fluoroscopic guidance, for a cumulative dose of 134.25 mGy, was provided to Dr. Carty by the radiology department. C-arm images of the chest were saved for the patient's permanent record. [facility]
--- NOTE | 2021-05-05 05:49 | SC_ITS ---
WS: [id number] INTRAOPERATIVE TECHNIQUE: 2 Spot fluoroscopic images for intraoperative purposes. FLUOROSCOPY TIME: 363.3 seconds CLINICAL INFORMATION: AICD implantation COMPARISON: None. FINDINGS: Intraoperative images for AICD placement. AICD visualized in good position. No visualized right pneum othorax. SC/C-arm FL for Pacemaker IMPRESSION: Images obtained for intraoperative purposes.
--- NOTE | 2021-05-05 06:04 | XRR_ITS ---
PROCEDURE INFORMATION: Exam: XR Chest Exam date and time: 05/05/2021 6:04 AM Age: 66 years old Clinical indication: Device placement; Cardiac defibrillator lead placement or adjustment; Prior surgery; Surgery date: Post-operative (0-2 days); Additional info: Defib placement TECHNIQUE: Imaging protocol: XR of the chest. Views: 1 view. COMPARISON: CR XR KUB [id number] 02/19/2021 1:10 PM FINDINGS: Tubes, catheters and devices: Definite cardiac pacemaker not visualized on the provided image. Lungs: No CHF/pulmonary edema. Visible lungs appear essentially clear. Pleural spaces: No definite pneumothorax, however a small pneumothorax might not be visible on an image of this technique. No definite pleural fluid. Heart/Mediastinum: Heart size is within normal limits. Vasculature: Moderate aortic tortuosity. Bones/joints: No significant acute finding. XR/XR chest 1V portable [id number] IMPRESSION: 1. No CHF or pneumonia. 2. Definite cardiac pacemaker not visualized on the provided image. 3. No visible pneumothorax. 4. Other findings discussed above.
--- NOTE | 2021-05-05 06:12 | PM.HP ---
Providers/Chief Complaint Admitting Physician: Dr. Carty Primary Care Provider: Wilman Larios MD Chief Complaint: Defibrillator Placement History of Present Illness Yayo Rivera is a 66 year old male whom I originally saw in my office on consultation from Dr. Mejia on March 14 for evaluation for AICD implantation due to nonischemic cardiomyopathy with a high PVC burden. Mr. Rivera has a long history for atrial fibrillation and is status post thoracoscopic modified Maze procedure and subsequent catheter ablation in 2017. He has been followed carefully by Dr. Mejia. He has a normal stress test and also underwent prior left heart catheterization with nonobstructive disease identified. Left heart catheterization was performed January 17 of this year. Ejection fraction has decreased down to 30%. Holter monitoring performed September 20 of last year reveals a PVC burden of over 15%. He did demonstrate 94 runs of a wide complex tachycardia. Echocardiogram of December 02 revealed ejection fraction of 30 to 35% which had decreased from the prior study of May 04, 2019. Complicating factors include COPD, hypertension, and obesity. During his last clinic visit with me, we did discuss her rationale and recommendation for AICD implantation. He was enthusiastic to proceed. Reportedly, he has now developed some episodes of bradycardia. Review of Systems Const: Denies: fever(s), chills, change in appetite, change in weight, fatigue or night sweats Eyes: Denies: change in vision or blurry vision ENMT: Reports: epistaxis (Well previously on Eliquis, now discontinued.); Denies: odynophagia or hoarseness Card: Reports: palpitations, irregular heart rhythm, lightheadedness and dyspnea on exertion; Denies: chest pain or edema Resp: Denies: dyspnea or productive cough GI: Denies: abdominal pain, nausea, vomiting, dysphagia, heartburn or change in bowel habits : Denies: difficulty urinating, dysuria, urinary frequency, urinary urgency or urinary hesitancy Musc: Denies: extremity pain or extremity swelling Skin/Breast: Denies: rash Neuro: Denies: headache(s), numbness in extremities, weakness in extremities or sensory changes Psych: Denies: anxiety, depression or change in appetite Endo: Denies: polyuria, polydipsia or cold intolerance Philippe/Lymph: Denies: easy bruising, easy bleeding, petechiae or enlarged lymph nodes Medications/Allergies Home Medications Medication Instructions Recorded Confirmed Last Taken Type ascorbic acid (vitamin C) 1,000 mg 1 gm PO DAILY tab 11/15/19 05/05/21 05/04/21 History tablet aspirin 81 mg tablet,delayed 81 mg PO DAILY tab 11/15/19 05/05/21 05/02/21 History release magnesium oxide 500 mg tablet 500 mg PO DAILY tab 11/15/19 05/05/21 05/04/21 History vitamin B complex 1 tab PO QAM 11/15/19 05/05/21 05/04/21 History sacubitril 49 mg-valsartan 51 mg 1 tab PO BID #180 tab 10/04/20 05/05/21 05/05/21 Rx tablet ipratropium bromide 17 2 puff INHALATION DAILY #12.9 gm 12/20/20 05/05/21 05/04/21 Rx mcg/actuation HFA aerosol inhaler atorvastatin 20 mg tablet 20 mg PO DAILY #90 tab 01/03/21 05/05/21 05/04/21 Rx carvedilol 12.5 mg tablet 18.75 mg PO BID #90 tab 01/07/21 05/05/21 05/05/21 Rx potassium 99 mg PO DAILY 01/16/21 05/05/21 05/04/21 History trazodone 100 mg tablet 100 mg PO BEDTIME #30 tab 03/13/21 05/05/21 05/04/21 Rx amiodarone 200 mg tablet 200 mg PO DAILY #37 tab 03/26/21 05/05/21 05/05/21 Rx cholecalciferol (vitamin D3) 1,250 See Rx Instructions .ROUTE 03/31/21 04/30/21 Unknown Rx mcg (50,000 unit) capsule .COMPLEX #4 cap alprazolam 0.5 mg tablet 0.5 mg PO DAILY PRN #30 tab 04/10/21 05/05/21 05/04/21 Rx rivaroxaban 20 mg tablet 20 mg PO DAILY #30 tab 04/17/21 05/05/21 05/02/21 Rx allopurinol 100 mg tablet 100 mg PO BID #60 tab 04/21/21 05/05/21 05/05/21 Rx torsemide 20 mg tablet 20 mg PO BID #60 tab 04/23/21 05/05/21 05/04/21 Rx spironolactone 25 mg tablet 12.5 mg .ROUTE .COMPLEX #45 tab 04/29/21 05/05/21 05/04/21 Rx Allergies Allergy/AdvReac Type Severity Reaction Status Date / Time diltiazem [From Cardizem] Allergy Unknown ADR/ALGY-Hy Verified 04/30/21 12:02 potension PFSH Acute PFSH: Medical History Atrial fibrillation s/p hybrid Maze (VATS) and atrial fibrillation ablation in Jun 2017 Cardiomyopathy COPD (chronic obstructive pulmonary disease) Dyslipidemia HTN (hypertension) Surgical History H/O cardiac radiofrequency ablation H/O circumcision H/O colonoscopy 3 yrs ago, H/O heart surgery Maze H/O removal of cyst thyroid, testicle H/O umbilical hernia repair Family History Father Myocardial infarct Mother Aneurysm Grandmother Cancer liver Other CAD (coronary artery disease) Denies family history of Diabetes Anesthesia complication Bleeding disorder Social History Smoking and tobacco status: former smoker Quit status (tobacco): has quit using tobacco Alcohol intake: current Alcohol intake frequency: holidays/special occasions only Household members: family Marital status: Single Current occupational status: retired History of recent travel: No Physical Exam HENMT: COMMON NORMALS: normocephalic, atraumatic, hearing grossly normal bilaterally and external ears normal Eye: COMMON NORMALS: Equal, round and reactive pupils present, EOMs intact bilaterally, conjunctivae normal and no scleral icterus Neck/C-Spine: COMMON NORMALS: full ROM, no lymphadenopathy, supple and No carotid bruits Resp: COMMON NORMALS: normal respiratory effort, No retractions, No use of accessory muscles, clear to auscultation bilaterally and percussion normal Cardio: COMMON NORMALS: regular rate HEART SOUNDS: S1 normal heart sound present BRUITS: no carotid bruits PERIPHERAL PULSES: radial pulses present positive bilateral 2+ GI: COMMON NORMALS: Normal to inspection, nondistended, normoactive bowel sounds present and Soft to palpation Extremity: COMMON NORMALS: full ROM, no clubbing, cyanosis or edema and no calf tenderness Neuro: COMMON NORMALS: no focal motor deficits, no sensory deficits noted and gait normal Psych: COMMON NORMALS: mental status grossly normal and Normal thought process present Data : 04/30/21 12:28 04/30/21 12:28 A&P Assessment and plan (1) Cardiomyopathy: Pleasant 66-year-old gentleman with nonischemic cardiomyopathy with decreasing ejection fraction now at 30% and with high PVC burden as documented by Holter monitor September 2020. Rationale for AICD again carefully discussed. Details and risks of the procedure were carefully and frankly reviewed. Risks reviewed include the possibility of , stroke, heart attack, major bleeding, infection, pneumonia, pneumothorax requiring chest tube, inability to adequately place the leads, dislodgment of the leads requiring need for revision, organ failure, failure to benefit, prolonged hospital stay, pain after the procedure, need for further procedures, inability to complete the procedure, and possible need for long-term followup. All questions were answered. Appropriate consents have been provided for review and signature. The increase technical challenges related to prior modified maze procedure and subsequent catheter ablation were also discussed. Status: Acute Attestations Medical Necessity Statement*: Nonischemic cardiomyopathy with decreased ejection fraction, now at 30% and with high PVC burden Time Spent in Patient Care: 16 - 35 minutes Coding Level of Care Code Acute Wire Bound Box Machine Operator for Krista Mina Diagnoses Cardiomyopathy I42.9
[2021-05-05] MEDS: sodium chloride 0.9% 1,000 ML 30 ML IV (06:44)
[2021-05-05] MEDS: lidocaine 1% INJ 20 mL SUBCUT (07:22)
[2021-05-05] MEDS: ceFAZolin 1,000 mg SDV 1000 MG IRRIGATION (07:28)
--- NOTE | 2021-05-05 08:25 | P.ANESUD_ITS ---
Pre-Anesthetic Update Pre-Anesthetic Assessment: Date of Surgery/Procedure: 05/05/21 Preop Andreea gnosis: Cardiomyopathy Proposed Procedure: Operation Date: 05/05/21 07:00 Proposed Procedures p Defibrillator Placement(Not Applicable) - Ze Carty MD Any changes to Pre-Anesthetic Assessment?: No Last Intake: Intake Last Liquid Date 05/04/21 Last Liquid Time 20:30 Last Solid Date 05/04/21 Last Solid Time 20:30 Vitals: Temperature 97.2 F L 05/05/21 06:05 Temperature Source Temporal Artery S can 05/05/21 06:05 Pulse Rate 65 05/05/21 06:05 Pulse Rhythm 05/05/21 06:05 Pulse Strength 3+ Normal 05/05/21 06:05 Respiratory Rate 18 05/05/21 06:05 Blood Pressure 105/69 05/05/21 06:05 Blood Pressure Christina n 81 05/05/21 06:05 Pulse Oximetry 97 05/05/21 06:05 Oxygen Delivery Me thod 05/05/21 06:05 Exam: Pre-Anes Outpt Exam: alert, oriented x 3, clear to auscultation bilaterally and regular rate & rhythm Cardiac Studies: Holter Monitor 09/20/20
--- NOTE | 2021-05-05 09:24 | XRR_ITS ---
PROCEDURE INFORMATION: Exam: XR Chest Exam date and time: 05/05/2021 9:24 AM Age: 66 years old Clinical indication: Device placement; Other: S/P aicd; Prior surgery; Surgery date: Post-operative (0-2 days) TECHNIQUE: Imaging protocol: XR of the chest. Views: 1 view. COMPARISON: CR XR chest 1V portable [id number] 05/05/2021 6:14 AM FINDINGS: Tubes, catheters and devices: A permanent pacemaker appears intact. Lungs: Patient has left arm lies across the chest obscuring portions of the lung arango. No acute pulmonary infiltrates are seen. Pleural spaces: Unremarkable. No pleural effusion. No pneumothorax. Heart/Mediastinum: Unremarkable. No cardiomegaly. Bones/joints: Unremarkable. Soft tissues: Otherwise unremarkable. XR/XR chest 1V portable [id number] IMPRESSION: 1. Satisfactory pacemaker position. 2. No acute cardiopulmonary abnormality.
--- NOTE | 2021-05-05 09:51 | P.OP_ITS ---
Operative Report Date of procedure: May 05, 2021 Pre-op Diagnosis: Cardiomyopathy Post-op diagnosis: same Procedure Done: Single lead AICD implantation Implants: Ventricular lead and AICD generator Pathology: none sent Surgeon: Ze Carty Anesthesia: MAC and Local Estimated blood loss (mL): 30 Complications: None: Post procedure chest x-ray reveals appropriate lead placement without evidence for pneumothorax Condition: stable Disposition: PACU Brief History: Mr. Rivera is a pleasant 66-year-old gentleman with nonischemic cardiomyopathy which has failed to improve beyond 30% with maximal medical management. AICD implantation has been recommended due to a high PVC burden as noted by Holter monitoring with PVC burden being at least 15%. Details of risk of the procedure were carefully reviewed. Appropriate consents have been reviewed and signed. Procedure: Procedure: Mr. Rivera was taken to the OR suite and placed in the supine position over a shoulder roll. He received conscious sedation with continuous anesthesia monitoring by. His entire chest was sterilely prepped and draped. 1% lidocaine was infiltrated in the left subclavicular region. While in Trendelenburg position, utilizing modified seldinger technique and hand-held ultrasound for guidance, a guidewire was placed in the left subclavian vein. This was confirmed in position by fluoroscopy. Next, after infiltration with lidocaine, a subcutaneous pocket was created beginning from the exit point of the guidewire and extending laterally and inferiorly. Cautery was utilized to create the pocket just above the pectoralis musculature. Hemostasis was confirmed. An antibiotic-soaked sponge was placed in the wound. A dilator and tear-away sheath was placed over the guidewire and advanced under fluoroscopy. Guidewire and dilator were removed. Next using a combination of curved and straight stylettes, the right ventricular lead was placed in position by fluoroscopy. The distal screw was extended. Interrogation was then performed confirming appropriate parameters. The tear-away sheath was then removed and the ventricular lead was sewn to the floor of the subcutaneous pocket. Atrial lead could not be placed with consistent capture, therefore was not implanted. Generator was brought into the field, and after confirmation of hemostasis in the subcutaneous pocket, the leads was connected to the generator with appropriate capture. The entire system was interrogated by fluoroscopy. Lead and generator were secured in the pocket. Sponge and needle count was correct. The wound was then closed in 2 layers of 3-0 Vicryl suture. Skin was reapproximated in a subcuticular manner with 4-0 Monocryl suture. A pressure dressing was applied. The left arm was placed in a sling. The patient had equal breath sounds bilaterally. He was then transferred to the PACU, where chest x-ray revealed appropriate lead placement without evidence for pneumothorax. Following are the specifics of this system: Right ventricular lead is 62 cm and model [id number]. Serial number [id number] Ventricular lead had sensing of 9 mV with an impedance of 864 ohms. Threshold was 0.75 V [employer] generator: Model #[id number] Serial #:[id number] System was set at VVI 40 bpm VT monitoring for 150 bpm with a 30 to detect VF monitoring 188 bpm with a 30/40 detect
[2021-05-05] MEDS: HYDROcodone-acetaminophen 5-325 mg Tablet 1 TAB PO ×2 (11:51→20:02)
--- NOTE | 2021-05-05 13:06 | PC.CHAP ---
Pastoral Care Encounter/Spiritual Assessment Type of Contact [] Declined ground support equipment fitter visit [] Patient/Family/Request visit [] Outpatient visit [] Follow-up visit [] Physician referral [] Code/Alert [] Routine visit [] Staff referral [] Actively dying [] Patient sleeping [] Family support [] [] Out of room [] Palliative care [] [] Receiving care in room [] Pre-surgical visit [] Trauma [] Long length of stay [] ICU visit [] Other: Relational/Emotional Strength [] Patient feels connected with others/family/visitors/staff [] Distress [] Loneliness/isolation [] Abandonment Spirituality of Patient [xx] Person of Estela [x] Attends Mu-Ism of their [place] [x] Believes in Prayer [] Reads Bible or Muslim materials [] There are Spiritual issues to be addressed Six Sigma Black Trainer Interventions [x] Prayer [] Active listening [] Non-anxious presence [] Spiritual/emotional support [] Crisis/trauma care [] Spiritual counseling [] Bereavement support [] Provided bereavement packet [] Provided Bible/devotional materials [] Provided toy/stuffed animal, coloring book to patient or family member [] Provided Communion [] Anointing/[place] [] Salvation [] Completed spiritual assessment [] Other: Impact on Illness or Injury [] Angry [] Fearful [] Anxious [] Often cries [] Exhaustion [] Unable to work [] Unable to attend orthodoxy [] Unable to walk/stand [] Unable to read [] Unable to drive [] Unable to eat/drink [] Unable to sleep [] Unable to be with family [] Patient intubated [] Other: Summary Time spent with patient
[2021-05-05] MEDS: ceFAZolin 1,000 MG in sodium chloride 0.9% (plus) 50 ML 100 MG IV ×2 (15:11→23:22)
--- NOTE | 2021-05-05 15:29 | ANE.PACU2 ---
Inpatient post-anesthesia follow up: Airway intact: Yes Vital signs: Temperature 98.0 F Pulse Rate 69 Respiratory Rate 18 Blood Pressure 95/61 Pulse Oximetry 92 Oxygen Delivery Me thod Room Air Oxygen Flow Rate 2 Fraction of Inspir ed Oxygen Hydration adequate: Yes Nausea and vomiting: Yes Pain level: 1 Mental status: Baseline
[2021-05-05] MEDS: TORSEmide 20 mg Tablet PO (17:24)
[2021-05-05] MEDS: allopurinol 100 mg Tablet PO (17:25)
[2021-05-05] MEDS: carvedilol 12.5 mg Tablet 18.75 MG PO (17:25)
[2021-05-05] MEDS: trazodone 100 mg Tablet PO (21:08)
[2021-05-06 00:07] VITALS: BP 110/56; PULSE 73; RESP 18; TEMP 37.1; O2SAT 92
[2021-05-06] MEDS: ALPRAZolam 0.5 mg Tablet PO (00:17)
[2021-05-06 03:46] VITALS: BP 96/67; PULSE 82; RESP 16; TEMP 37.4; O2SAT 91
[2021-05-06] MEDS: ceFAZolin 1,000 MG in sodium chloride 0.9% (plus) 50 ML 100 MG IV (06:40)
[2021-05-06] MEDS: HYDROcodone-acetaminophen 5-325 mg Tablet 1 TAB PO (06:47)
--- NOTE | 2021-05-06 07:05 | PM.DCS ---
Discharge Providers Date of Admission: 05/05/21 09:08 Date of Discharge: May 06, 2021 Attending Provider at Admission: Ze Carty MD Attending Provider at Discharge: Ze Carty MD Primary Care Provider: Wilman Larios MD Diagnoses at Discharge Discharge Diagnosis (1) Cardiomyopathy: Status: Acute Reason for Visit Reason for Visit: Defibrillator Placement Hospital Course Hospital Course Mr. Rivera is a pleasant 66-year-old gentleman with nonischemic cardiomyopathy who has failed to improve with maximal medical management and maintains an ejection fraction of 30% or less. He has undergone prior Holter monitoring and has a high PVC burden of over 50%. AICD implantation is been recommended by Dr. Mejia. Mr. Rivera was evaluated as an outpatient and electively admitted yesterday May 05, he underwent single lead AICD implantation. Postoperatively, he has convalesced on the medical surgical patel where he has continued to do well. Operative discomfort is been under good control and he has completed prophylactic postoperative antibiotics. Outer surgical dressing was removed today and inner dressing is clean and dry. There is minimal swelling and no ecchymosis at the site. He will be discharged home today in stable condition. Activity limitations have been provided. He will be scheduled for follow-up at [facility] in 1 week for reexamination. Signs and symptoms of infection were carefully reviewed and he has been encouraged to call if any concerns you may have. Physical Exam Chest: COMMONS NORMALS: normal inspection of the chest OTHER: Inner surgical dressing is clean and dry. Minimal swelling and no ecchymosis. No erythema. Resp: COMMON NORMALS: normal respiratory effort, No use of accessory muscles, clear to auscultation bilaterally and percussion normal EFFORT & INSPECTION: Yes able to speak in complete sentences AUSCULTATION: clear to auscultation bilaterally PERCUSSION: percussion normal Cardio: COMMON NORMALS: regular rate, regular rhythm, S1 normal heart sound present, No clicks present (Cardio) and No murmurs present (Cardio) RATE: regular rate RHYTHM: regular rhythm HEART SOUNDS: S1 normal heart sound present Extremity: COMMON NORMALS: no clubbing, cyanosis or edema Discharge Data Data Completed and Pending: Completed Studies During Hospitalization Category Date Time Status CXRP [XR chest 1V portable 05354] R outine Exams 05/05/21 06:04 Completed XR chest 1V randal ble [id number] Routine Exams 05/05/21 09:24 Completed Pending at discharge Category Date Time Status C-arm FL for Pace maker Routine Exams 05/05/21 05:49 Ordered Vitals: Last Vital Signs Temp 99.4 F 05/06/21 03:46 Pulse 82 05/06/21 03:46 Resp 16 05/06/21 03:46 BP 96/67 05/06/21 03:46 Pulse Ox 91 05/06/21 03:46 Discharge Plan Discharge Patient Disposition: Home Condition: Stable Prescriptions: New hydrocodone-acetaminophen 5-325 mg Tablet 1 tab PO Q6H PRN (Reason: Moderate Pain) Qty: 10 RF: 0 sulfamethoxazole-trimethoprim [Bactrim DS] 800-160 mg tablet 1 tab PO BID Qty: 4 RF: 0 Continued aspirin [Adult Low Dose Aspirin] 81 mg tablet,delayed release (DR/EC) 81 mg PO DAILY RF: 0 vitamin B complex [B Complex-Vitamin B12] Tablet 1 tab PO QAM RF: 0 magnesium oxide 500 mg tablet 500 mg PO DAILY RF: 0 ascorbic acid (vitamin C) 1,000 mg tablet 1 gm PO DAILY RF: 0 Entresto 49-51 mg tablet 1 tab PO BID Qty: 180 RF: 3 Atrovent HFA 17 mcg/actuation HFA aerosol inhaler 2 puff INHALATION DAILY Qty: 12.9 RF: 3 atorvastatin 20 mg tablet 20 mg PO DAILY Qty: 90 RF: 3 carvedilol 12.5 mg tablet 18.75 mg PO BID Qty: 90 RF: 5 trazodone 100 mg tablet 100 mg PO BEDTIME Qty: 30 RF: 3 amiodarone 200 mg tablet 200 mg PO DAILY Qty: 37 RF: 2 cholecalciferol (vitamin D3) [Optimal D3] 1,250 mcg (50,000 unit) capsule See Rx Instructions .ROUTE .COMPLEX Qty: 4 RF: 0 alprazolam 0.5 mg tablet 0.5 mg PO DAILY PRN (Reason: anxiety) Qty: 30 RF: 0 Xarelto 20 mg tablet 20 mg PO DAILY Qty: 30 RF: 3 allopurinol 100 mg tablet 100 mg PO BID Qty: 60 RF: 3 torsemide 20 mg tablet 20 mg PO BID Qty: 60 RF: 5 spironolactone 25 mg tablet 12.5 mg .ROUTE .COMPLEX Qty: 45 RF: 1 potassium 99 mg tablet 99 mg PO DAILY RF: 0 Discharge Orders: Discharge Order (Routine); Ordered 05/06/21 Ordered By: Ze Carty [facility]errals: [facility] [Provider Group] - 1 week (Pacemaker clinic for incision inspection and device interrogation) Discharge Diet: Usual diet Discharge Activity: Limit activity as instructed Patient Instructions: Opioid Safety Activity Restrictions/Additional Instructions: Do not lift left arm above eye level for 1 week Do not need to wear arm sling if able to comply with above instruction No swimming or tub baths x2 weeks May begin daily showers with bandage off in 2 days. May re-cover incision if desired to prevent irritation from clothing or undergarments Report any increasing redness, swelling, pain, fever, or drainage from incision Discharge Attestations Time Spent in Discharge Care*: less than 30 min Specific Discharge Activities: educating patient, discussing with catalytic case operator/social workers/dc planners, documenting/other paperwork and evaluating patient/reviewing data Status at Discharge: Cognitive status at discharge: cognitively intact, Functional status at discharge: independent ambulation Overall status at discharge: patient is back to baseline Quality Metrics Clinical Quality Measures During this hospital stay, did patient experience: None Coding Level of Care Code Acute Chg FW DC note Diagnoses Cardiomyopathy I42.9
[2021-05-06 07:29] VITALS: BP 108/73; PULSE 74; RESP 18; TEMP 36.4; O2SAT 92
[2021-05-06] MEDS: amiodarone 200 mg Tablet PO (09:08)
[2021-05-06] MEDS: allopurinol 100 mg Tablet PO (09:08)
[2021-05-06] MEDS: atorvastatin 40 mg Tablet 20 MG PO (09:09)
[2021-05-06] MEDS: spironolactone 25 mg Tablet 12.5 MG PO (09:09)
[2021-05-06] MEDS: TORSEmide 20 mg Tablet PO (09:09)
[2021-05-06] MEDS: ascorbic acid 500 mg Tablet 1000 MG PO (09:09)
[2021-05-06] MEDS: aspirin 81 mg EC Tablet PO (09:09)
[2021-05-06] MEDS: pantoprazole DR 40 mg Tablet PO (09:10)
[2021-05-06] MEDS: carvedilol 12.5 mg Tablet 18.75 MG PO (09:10)
--- NOTE | 2021-05-06 09:36 | PC.CHAP ---
Pastoral Care Encounter/Spiritual Assessment Type of Contact [] Declined desk manager visit [] Patient/Family/Request visit [] Outpatient visit [] Follow-up visit [] Physician referral [] Code/Alert [x] Routine visit [] Staff referral [] Actively dying [] Patient sleeping [] Family support [] [] Out of room [] Palliative care [] [] Receiving care in room [] Pre-surgical visit [] Trauma [] Long length of stay [] ICU visit [] Other: Relational/Emotional Strength [x] Patient feels connected with others/family/visitors/staff [] Distress [] Loneliness/isolation [] Abandonment Spirituality of Patient [x] Person of Estela [] Attends Mandaeism of their [place] [x] Believes in Prayer [x] Reads Bible or Mu-Ism materials [] There are Spiritual issues to be addressed Rubber Compounder Supervisor Interventions [x] Prayer [x] Active listening [x] Non-anxious presence [x] Spiritual/emotional support [] Crisis/trauma care [x] Spiritual counseling [] Bereavement support ] Provided bereavement packet [x] Provided Bible/devotional materials [] Provided toy/stuffed animal, coloring book to patient or family member [] Provided Communion [] Anointing/[place] [] Salvation [] Completed spiritual assessment [] Other: Impact on Illness or Injury [] Angry [] Fearful [] Anxious [] Often cries [] Exhaustion [] Unable to work [] Unable to attend alevism [] Unable to walk/stand [] Unable to read [] Unable to drive [] Unable to eat/drink [] Unable to sleep [] Unable to be with family [] Patient intubated [] Other: Summary patient feeling much better Time spent with patient 20 min
[2021-05-06 10:56] VITALS: BP 108/73; PULSE 74; RESP 18; TEMP 36.4; O2SAT 92
== END 2021-05-06 10:56 | disposition home or self-care (01) ==
LOC: OR 06:00 → MEDSURG 13:16
PROVIDERS: PCP Internal Medicine; Visit Provider Thoracic Surgery (Cardiothoracic Vascular Surgery)
PROC: 0JH608Z Insertion of Defibrillator Generator into Chest Subcutaneous Tissue and Fascia, Open Approach (ICD-10-PCS; CPT 33249; principal; 2021-05-05 07:00)
DX: I42.9 Cardiomyopathy, unspecified (principal); Z79.82 Long term (current) use of aspirin; J44.9 Chronic obstructive pulmonary disease, unspecified; E78.5 Hyperlipidemia, unspecified; Z82.49 Family history of ischemic heart disease and other diseases of the circulatory system; Z87.891 Personal history of nicotine dependence; I48.91 Unspecified atrial fibrillation; I11.0 Hypertensive heart disease with heart failure; I50.9 Heart failure, unspecified; I45.10 Unspecified right bundle-branch block
CPT/HCPCS: 33249; 71045; 76000; 80048; 81003; 85025; 93005; C1722; C1777; J0690; J2250; J2405; J2704; J3010; J3490; J7030

== ENCOUNTER 2021-05-12 14:45 | Emergency (ER) | payer MEDICARE, MEDICAID, SELFPAY ==
[2021-05-12 14:56] VITALS: BMI 34.4
--- NOTE | 2021-05-12 16:34 | ED_ITS ---
HPI - Abdominal Pain General: Chief Complaint: Abdominal Pain Stated Complaint: STATES HAS RED STOOL/PACEMAKER PLACED 05.05.21 Time Seen by Provider: 05/12/21 16:21 History of Present Illness: HPI narrative: This patient is a 66-year-old male who presents to the emergency department for bright red blood during a bowel movement. Patient states he recently had a pacemaker placed and was taken some pain medication for the same got real constipated. Patient was advised by nurse practitioner to take a mag citrate. Patient states that did the trick and relieved his constipation. States he had a painful bowel movement. Patient noticed he had bright red blood drops in the toilet. On exam patient does have a hemorrhoid but patient states he had a bowel movement prior to coming in and was normal no bleeding. I did discuss at length with patient about options. Patient declines any further medical screening exam even though was offered and ordered. Patient wishes to have it medications to help with a hemorrhoid. And will monitor closely. Patient will be followed up by primary care physician. Patient be discharged home per his request Exacerbating factors: bowel movement Associated Symptoms: Reports change in stool character (Bright red) and hematochezia; Denies chills, dysuria, fever(s), nausea and vomiting Review of Systems General: Reports: 10 or more systems reviewed and unremarkable except in HPI and below Const: Denies: fever(s), chills, body aches or fatigue Eyes: Denies: change in vision or blurry vision ENMT: Denies: throat pain, hoarseness or mouth pain Card: Denies: chest pain, palpitations, irregular heart rhythm, edema, swelling of feet/ankles or lightheadedness Resp: Denies: dyspnea, productive cough, non-productive cough, wheezing or pain on inspiration GI: Reports: change in stool character (Bright red) and hematochezia; Denies: abdominal pain, nausea or vomiting : Denies: flank pain, dysuria, urinary frequency, urinary urgency or urinary hesitancy Musc: Denies: neck pain, back pain, extremity pain, extremity swelling, joint pain, joint swelling, joint redness, joint warmth or limited range of motion Skin/Breast: Denies: rash, pruritus, erythema or skin tenderness Neuro: Denies: headache(s), numbness in extremities or weakness in extremities Psych: Denies: anxiety or depression PFSH ED PFSH: Medical History (Updated 05/12/21 @ 16:38 by Cayetano Huitron MD) Atrial fibrillation s/p hybrid Maze (VATS) and atrial fibrillation ablation in Jun 2017 Cardiomyopathy COPD (chronic obstructive pulmonary disease) Dyslipidemia HTN (hypertension) Surgical History H/O cardiac radiofrequency ablation H/O circumcision H/O colonoscopy 3 yrs ago, H/O heart surgery Maze H/O removal of cyst thyroid, testicle H/O umbilical hernia repair Family History Father Myocardial infarct Mother Aneurysm Grandmother Cancer liver Other CAD (coronary artery disease) Denies family history of Diabetes Anesthesia complication Bleeding disorder Social History Smoking and tobacco status: former smoker Quit status (tobacco): has quit using tobacco Alcohol intake: current Alcohol intake frequency: holidays/special occasions only Household members: family Marital status: Single Current occupational status: retired History of recent travel: No Physical Exam Const: COMMON NORMALS: no acute distress, average body habitus, patient oriented x3, no limitations, healthy appearing, alert and well nourished HENMT: COMMON NORMALS: normocephalic, atraumatic, hearing grossly normal bilaterally, external ears normal, EAC's normal, TM's normal bilaterally, Normal external nose present, Normal nasal mucous membranes and turbinates present, moist oral mucous membranes, oropharynx normal, dentition normal and gingiva normal HEAD & SCALP: normocephalic and atraumatic NOSE: Normal external nose present and Normal nasal mucous membranes and turbinates present EXTERNAL EAR: Yes external ears normal EXTERNAL AUDITORY CANAL: EAC's normal TYMPANIC MEMBRANE: TM's normal bilaterally Neck/C-Spine: COMMON NORMALS: full ROM, no lymphadenopathy, supple, no meningeal signs, no JVD, Thyroid normal and No carotid bruits THYROID: Thyroid normal Chest: COMMONS NORMALS: normal inspection of the chest, normal palpation of entire chest wall, normal inspection of the breasts and normal palpation of the breasts Breast/axilla inspection: Yes normal inspection of the breasts BREAST/AXILLA PALPATION: Yes normal palpation of the breasts Resp: COMMON NORMALS: normal respiratory effort, No retractions, No use of accessory muscles, clear to auscultation bilaterally and percussion normal AUSCULTATION: clear to auscultation bilaterally PERCUSSION: percussion normal Cardio: COMMON NORMALS: no JVD, regular rate, regular rhythm, S1 normal heart sound present, S2 normal heart sound present, No gallops present (Cardio), No clicks present (Cardio), No murmurs present (Cardio), No rub (Cardio) and Peripheral pulses 2+ throughout RATE: regular rate RHYTHM: regular rhythm HEART SOUNDS: S1 normal heart sound present and S2 normal heart sound present PERIPHERAL PULSES: Peripheral pulses 2+ throughout GI: COMMON NORMALS: Normal to inspection, nondistended, normoactive bowel sounds present, Soft to palpation, non-tender, No hepatosplenomegaly present, no masses and no bruits PALPATION: Yes Soft to palpation and Yes No hepatosplenomegaly present RECTAL EXAM: Yes hemorrhoids (External and previously bleeding now resolved) : COMMON NORMALS: Yes no CVA tenderness BLADDER/KIDNEY EXAM: Yes no CVA tenderness Back/Pelvis: COMMON NORMALS: no CVA tenderness, thoracic and lumbar spine normal to inspection, no thoracic nor lumbar tenderness, thoraco-lumbar ROM normal and straight leg raise negative bilaterally Extremity: COMMON NORMALS: normal to inspection, full ROM, capillary refill normal, no joint enlargement, no clubbing, cyanosis or edema, no calf tenderness and no pedal edema Neuro: COMMON NORMALS: patient oriented x3 SENSORIUM/ORIENTATION: Yes alert MENINGEAL SIGNS: Yes no meningeal signs MDM - Abdominal Pain MDM Narrative: Medical decision making narrative: his patient is a 66-year-old male who presents to the emergency department for bright red blood during a bowel movement. Patient states he recently had a pacemaker placed and was taken some pain medication for the same got real constipated. Patient was advised by nurse practitioner to take a mag citrate. Patient states that did the trick and relieved his constipation. States he had a painful bowel movement. Patient noticed he had bright red blood drops in the toilet. On exam patient does have a hemorrhoid but patient states he had a bowel movement prior to coming in and was normal no bleeding. I did discuss at length with patient about options. Patient declines any further medical screening exam even though was offered and ordered. Patient wishes to have it medications to help with a hemorrhoid. And will monitor closely. Patient will be followed up by primary care physician. Patient be discharged home per his request Discharge Plan Discharge Patient Disposition: Home Clinical Impression: Hemorrhoids, Bright red rectal bleeding Condition: Stable Prescriptions: New hydrocortisone [Procto-Med HC] 2.5 % cream with perineal applicator 1 applic CA BID PRN (Reason: hemorrhoids) Qty: 30 RF: 1 No Action aspirin [Adult Low Dose Aspirin] 81 mg tablet,delayed release (DR/EC) 81 mg PO DAILY RF: 0 vitamin B complex [B Complex-Vitamin B12] Tablet 1 tab PO QAM RF: 0 magnesium oxide 500 mg tablet 500 mg PO DAILY RF: 0 ascorbic acid (vitamin C) 1,000 mg tablet 1 gm PO DAILY RF: 0 Entresto 49-51 mg tablet 1 tab PO BID Qty: 180 RF: 3 Atrovent HFA 17 mcg/actuation HFA aerosol inhaler 2 puff INHALATION DAILY Qty: 12.9 RF: 3 atorvastatin 20 mg tablet 20 mg PO DAILY Qty: 90 RF: 3 carvedilol 12.5 mg tablet 18.75 mg PO BID Qty: 90 RF: 5 trazodone 100 mg tablet 100 mg PO BEDTIME Qty: 30 RF: 3 amiodarone 200 mg tablet 200 mg PO DAILY Qty: 37 RF: 2 cholecalciferol (vitamin D3) [Optimal D3] 1,250 mcg (50,000 unit) capsule See Rx Instructions .ROUTE .COMPLEX Qty: 4 RF: 0 Xarelto 20 mg tablet 20 mg PO DAILY Qty: 30 RF: 3 allopurinol 100 mg tablet 100 mg PO BID Qty: 60 RF: 3 torsemide 20 mg tablet 20 mg PO BID Qty: 60 RF: 5 spironolactone 25 mg tablet 12.5 mg .ROUTE .COMPLEX Qty: 45 RF: 1 alprazolam 0.5 mg tablet 0.5 mg PO DAILY PRN (Reason: anxiety) Qty: 30 RF: 0 potassium 99 mg tablet 99 mg PO DAILY RF: 0 hydrocodone-acetaminophen 5-325 mg Tablet 1 tab PO Q6H PRN (Reason: Moderate Pain) Qty: 10 RF: 0 Bactrim DS 800-160 mg tablet 1 tab PO BID Qty: 4 RF: 0 Discharge Orders: Discharge ED (Routine); Ordered 05/12/21 Ordered By: Cayetano Huitron Referrals: Wilman Larios MD [Primary Care Provider] - Discharge Diet: Advance as tolerated and Soft Mechanical Discharge Activity: Resume usual activity Patient Instructions: Opioid Safety Activity Restrictions/Additional Instructions: Encourage p.o. fluids. MiraLAX daily as needed for constipation. Patient should use [id number] medications to help soften stool. Use medications as prescribed to help with the bleeding hemorrhoid. Hold Xarelto for 2 days. Follow-up with PCP in 2 to 3 days. Return to the emergency department symptoms fail to improve or worsen Coding Level of Care Code ED Tape Fastener Machine Operator for Krista Mina
== END 2021-05-12 16:46 | disposition home or self-care (01) ==
PROVIDERS: Emergency Provider Emergency Medicine; PCP Internal Medicine
DX: K64.9 Unspecified hemorrhoids (principal); Z79.82 Long term (current) use of aspirin; J44.9 Chronic obstructive pulmonary disease, unspecified; E78.5 Hyperlipidemia, unspecified; I10 Essential (primary) hypertension; Z87.891 Personal history of nicotine dependence
CPT/HCPCS: 99282

== ENCOUNTER → 2021-09-29 11:51 | Outpatient (BNVA) | payer MEDICARE, MEDICAID, SELFPAY | PROVIDERS: PCP Internal Medicine; Visit Provider Internal Medicine | DX: Z01.812 Encounter for preprocedural laboratory examination (principal); Z86.010 Personal history of colon polyps | CPT/HCPCS: 87635 ==

== ENCOUNTER 2021-10-06 05:33 | Day surgery (SDC) | payer MEDICARE, MEDICAID, SELFPAY ==
[2021-09-30 12:42] VITALS: BMI 34.7
[2021-10-06 06:18] VITALS: BP 109/81; PULSE 71; RESP 16; TEMP 36.3; O2SAT 98
[2021-10-06] MEDS: sodium chloride 0.9% 1,000 ML 30 ML IV (06:25)
--- NOTE | 2021-10-06 06:47 | ANES.PREANE2 ---
Documented by User: Yeny Bergman CRNA 10/06/21 07:00 Pre-Anesthetic Assessment Pre-Anesthetic Assessment: Height/Weight: Height 1.88 m Weight 122.47 kg Temp Pulse Resp BP Pulse Ox 97.3 F L 71 16 109/81 98 10/06/21 06:18 10/06/21 06:18 10/06/21 06:18 10/06/21 06:18 10/06/21 06:18 Preop Diagnosis: Screen for polyps Proposed Procedure: Operation Date: 10/06/21 07:00 Proposed Procedures p Colonoscopy 05094 Z12.11(Not Applicable) - Wilman Larios MD Was Beta Sophie taken within 24 hours: Yes Was Clonidine taken within 24 hours: N/A Last intake: Intake Last Liquid Date 10/05/21 Last Liquid Time 00:00 Last Solid Date 10/04/21 Last Solid Time 00:00 Social: Social History: Alcohol (few times per week) and No tobacco Comment: former smoker, quit 5 years ago Exam: Pre-Anes Outpt Exam: alert and oriented x 3 Airway: Submandibular: WNL Cervical ROM: WNL MP: 3 Dentition: False History/ROS: No significant history except as noted Pulmonary: Pulmonary: COPD CV/HEM: CV/HEM: Afib, Arrythmia, CHF and [place] (3 years ago) Comments: AICD April 2021- no problems since : : None reported Hepatic: Hepatic: None reported GI: GI: GERD (controlled) Metabolic: Metabolic: Morbid obesity and None reported Musc/skel: Musc/skel: None reported Neuropsych: Neuropsych: Anxiety Anesthetic Plan: ASA status: 4 Anesthesia: Anesthesia Evaluation and MAC Risk of > 500 ml blood loss (7ml/kg in children): No Meds/Allergies Current Medications: Current Medications Generic Name Dose Route Start Last Admin Trade Name Freq PRN Reason Stop Dose Admin Sodium Chloride 1,000 mls @ 30 ml s/hr 10/06/21 06:00 10/06/21 06:25 Sodium Chloride 0.9% IV 30 mls/hr .Q24H MORA Administration PFSH Anesthesia PFSH: Medical History Atrial fibrillation s/p hybrid Maze (VATS) and atrial fibrillation ablation in Jun 2017 Cardiomyopathy COPD (chronic obstructive pulmonary disease) Dyslipidemia HTN (hypertension) Surgical History AICD (automatic cardioverter/defibrillator) present H/O cardiac radiofrequency ablation H/O circumcision H/O colonoscopy 3 yrs ago, H/O heart surgery Maze H/O removal of cyst thyroid, testicle H/O umbilical hernia repair Family History Father Myocardial infarct Mother Aneurysm Grandmother Cancer liver Other CAD (coronary artery disease) Denies family history of Diabetes Anesthesia complication Bleeding disorder Social History Smoking and tobacco status: former smoker Quit status (tobacco): has quit using tobacco Alcohol intake: current Alcohol intake frequency: holidays/special occasions only Household members: family Marital status: Single Current occupational status: retired History of recent travel: No Data Anesthesia Cardiac Studies: Holter Monitor 09/20/20 Documented by User: Khang Golden 10/06/21 13:41 PFSH Anesthesia PFSH: Medical History Atrial fibrillation s/p hybrid Maze (VATS) and atrial fibrillation ablation in Jun 2017 Cardiomyopathy COPD (chronic obstructive pulmonary disease) Dyslipidemia HTN (hypertension) Surgical History AICD (automatic cardioverter/defibrillator) present H/O cardiac radiofrequency ablation H/O circumcision H/O colonoscopy 3 yrs ago, H/O heart surgery Maze H/O removal of cyst thyroid, testicle H/O umbilical hernia repair Family History Father Myocardial infarct Mother Aneurysm Grandmother Cancer liver Other CAD (coronary artery disease) Denies family history of Diabetes Anesthesia complication Bleeding disorder Social History Smoking and tobacco status: former smoker Quit status (tobacco): has quit using tobacco Alcohol intake: current Alcohol intake frequency: holidays/special occasions only Household members: family Marital status: Single Current occupational status: retired History of recent travel: No Data Anesthesia Cardiac Studies: Holter Monitor 09/20/20
--- NOTE | 2021-10-06 06:50 | W.PM.OPSFHP ---
Same Day Surgery H&P Indication for Procedure/HPI DATE OF PROCEDURE: October 06, 2021 CHIEF COMPLAINT/INDICATIONFOR SURGICAL PROCEDURE: History of polyps PREOP DIAGNOSIS: Screen for polyps PLANNED PROCEDRUE: Operation Date: 10/06/21 07:00 Proposed Procedures p Colonoscopy 19608 Z12.11(Not Applicable) - Wilman Larios MD Medications/Allergies* Home Medications Medication Instructions Recorded Confirmed Type ascorbic acid (vitamin C) 1,000 mg 1 gm PO DAILY tab 11/15/19 10/06/21 History tablet aspirin 81 mg tablet,delayed 81 mg PO DAILY tab 11/15/19 10/06/21 History release magnesium oxide 500 mg tablet 500 mg PO DAILY tab 11/15/19 10/06/21 History vitamin B complex 1 tab PO QAM 11/15/19 10/06/21 History potassium 99 mg PO DAILY 01/16/21 10/06/21 History alprazolam 0.5 mg PO DAILY PRN 09/30/21 10/06/21 History atorvastatin 20 mg PO BEDTIME 09/30/21 10/06/21 History ergocalciferol (vitamin D2) 2,000 unit PO DAILY 09/30/21 10/06/21 History [Vitamin D2] Allergies/Adverse Reactions Allergy/AdvReac Type Severity Reaction Status Date / Time diltiazem [From Cardizem] Allergy Unknown ADR/ALGY-Hy Verified 09/18/21 09:50 potension Current Medications: Generic Name Dose Route Start Last Admin Trade Name Freq PRN Reason Stop Dose Admin Sodium Chloride 1,000 mls @ 30 mls/hr 10/06/21 06:00 10/06/21 06:25 Sodium Chloride 0.9% IV 30 mls/hr .Q24H MORA Administration Pertinent History/Comorbid Conditions* Medical History (Updated 09/18/21 @ 10:33 by Wilman Larios MD) Atrial fibrillation s/p hybrid Maze (VATS) and atrial fibrillation ablation in Jun 2017 Cardiomyopathy COPD (chronic obstructive pulmonary disease) Dyslipidemia HTN (hypertension) Surgical History (Updated 05/14/21 @ 21:05 by SHOBHA Devine) AICD (automatic cardioverter/defibrillator) present H/O cardiac radiofrequency ablation H/O circumcision H/O colonoscopy 3 yrs ago, H/O heart surgery Maze H/O removal of cyst thyroid, testicle H/O umbilical hernia repair Family History (Updated 06/03/20 @ 10:54 by Joyce Arita LPN) CAD (coronary artery disease) Aneurysm Mother Myocardial infarct Father Cancer Grandmother liver Denies family history of Diabetes Anesthesia complication Bleeding disorder Social History Smoking and tobacco status: former smoker Quit status (tobacco): has quit using tobacco Alcohol intake: current Alcohol intake frequency: holidays/special occasions only Household members: family Marital status: Single Current occupational status: retired History of recent travel: No Pertinent Exam Findings alert, oriented x 3, clear to auscultation bilaterally, regular rate & rhythm, operative site marked and procedure specific exam findings Recommendations Surgery/Procedure today Coding Level of Care Code Acute Online Marketing Manager for Krista Mina
[2021-10-06 07:21] VITALS: BP 82/70; PULSE 60; RESP 16; TEMP 36.1; O2SAT 91
[2021-10-06 07:32] VITALS: BP 93/73; PULSE 60; RESP 18; O2SAT 97
--- NOTE | 2021-10-06 13:41 | ANE.PACU2 ---
Inpatient post-anesthesia follow up: Airway intact: Yes Vital signs: Temperature 97.0 F Pulse Rate 60 Respiratory Rate 18 Blood Pressure 93/73 Pulse Oximetry 97 Oxygen Delivery Me thod Room Air Oxygen Flow Rate Fraction of Inspir ed Oxygen Hydration adequate: Yes Nausea and vomiting: No Pain level: 1 Mental status: Baseline
== END 2021-10-06 08:43 | disposition home or self-care (01) ==
PROVIDERS: PCP Internal Medicine; Visit Provider Internal Medicine
PROC: 0DJD8ZZ Inspection of Lower Intestinal Tract, Via Natural or Artificial Opening Endoscopic (ICD-10-PCS; CPT 45378; principal; 2021-10-06 07:00)
DX: Z12.11 Encounter for screening for malignant neoplasm of colon (principal); K57.30 Diverticulosis of large intestine without perforation or abscess without bleeding; I10 Essential (primary) hypertension; Z86.010 Personal history of colon polyps; Z79.82 Long term (current) use of aspirin; Z87.891 Personal history of nicotine dependence
CPT/HCPCS: 45378; 96360; J2704; J7030

== ENCOUNTER → 2022-01-12 14:25 | Outpatient (BNVA) | payer MEDICARE, MEDICAID, SELFPAY | PROVIDERS: PCP Internal Medicine; Visit Provider Internal Medicine Cardiovascular Disease | DX: I48.0 Paroxysmal atrial fibrillation (principal); I11.0 Hypertensive heart disease with heart failure; I50.20 Unspecified systolic (congestive) heart failure; I49.3 Ventricular premature depolarization; E78.5 Hyperlipidemia, unspecified; Z79.82 Long term (current) use of aspirin; Z95.810 Presence of automatic (implantable) cardiac defibrillator; I25.5 Ischemic cardiomyopathy | CPT/HCPCS: 99214 ==

== ENCOUNTER → 2022-05-20 13:31 | Outpatient (BNVA) | payer MEDICARE, MEDICAID, SELFPAY | PROVIDERS: PCP Internal Medicine; Visit Provider Nurse Practitioner Family | DX: I11.0 Hypertensive heart disease with heart failure (principal); I50.22 Chronic systolic (congestive) heart failure; Z95.810 Presence of automatic (implantable) cardiac defibrillator; Z87.891 Personal history of nicotine dependence; E78.5 Hyperlipidemia, unspecified | CPT/HCPCS: 80048; 83880; 99214 ==

== ENCOUNTER → 2022-06-12 09:10 | Outpatient (BNVA) | payer MEDICARE, MEDICAID, SELFPAY | PROVIDERS: PCP Internal Medicine; Visit Provider Nurse Practitioner Family | DX: I11.0 Hypertensive heart disease with heart failure (principal); I50.22 Chronic systolic (congestive) heart failure; Z87.891 Personal history of nicotine dependence; Z95.810 Presence of automatic (implantable) cardiac defibrillator | CPT/HCPCS: 93282; 99214 ==

== ENCOUNTER 2022-06-19 10:35 | Outpatient (CLI) | payer MEDICARE, MEDICAID, SELFPAY ==
[2022-06-19 11:35] LABS: Blood Urea Nitrogen 62 mg/dL (8-23); Calcium 9.9 mg/dL (8.5-10.5); Carbon Dioxide 28 mmol/L (22-29); Chloride 94 mmol/L (98-107); Glomerular Filtration Rate 28.6 mL/min (90-130); Glucose 146 mg/dL (65-115); Osmolality Calculated 302 mOsm/kg (285-295); Sodium 136 mmol/L (136-145)
[2022-06-19 11:36] LABS: Anion Gap 18.3 (5-19); Potassium 4.3 mmol/L (3.5-5.1)
== END 2022-06-19 10:36 | disposition home or self-care (01) ==
LOC: LAB 10:41
PROVIDERS: PCP Internal Medicine; Visit Provider Nurse Practitioner Family
DX: I50.22 Chronic systolic (congestive) heart failure (principal)
CPT/HCPCS: 36415; 80048

== ENCOUNTER 2022-06-19 11:01 | Observation (INO) | payer MEDICARE, MEDICAID, SELFPAY ==
[2022-06-19] VITALS (10 sets, daily range): BP systolic 74–102; BP diastolic 50–71; PULSE 58–84; RESP 16–22; TEMP 36.6; O2SAT 87–97; BMI 34.0; BMI 32.5
--- NOTE | 2022-06-19 11:03 | ECG_ITS ---
[facility] Test Date: 2022-06-19 Pat Name: Yayo Rivera Department: Room: Gender: Male Rn Burn: : 1955 Requested By: Evelin Klein Order Number: [id number] Filipe MD: Kami Hendrix M.D. Measurements Intervals [place] Rate: 85 P: 85 NM: 199 QRS: -44 QRSD: 95 T: 76 QT: 362 QTc: 432 Interpretive Statements SINUS RHYTHM WITH OCCASIONAL VENTRICULAR PREMATURE COMPLEXES LEFT AXIS DEVIATION [QRS AXIS < -30] LOW QRS VOLTAGE IN PRECORDIAL LEADS [QRS DEFLECTION < 1.0 mV IN CHEST LEADS] INCOMPLETE RIGHT BUNDLE BRANCH BLOCK [90+ ms QRS DURATION, TERMINAL R IN V1/V2, 40+ ms S IN I/aVL/V4/V5/V6] POSSIBLE ANTERIOR MYOCARDIAL INFARCTION , PROBABLY OLD [30 ms Q WAVE IN V3/V4, OR R < 0.2 mV IN V4] Compared to ECG 04/30/2021 12:28:16 No significant changes Electronically Signed On 06-19-2022 18:26:12 CDT by Kami Hendrix M.D. [id number]
--- NOTE | 2022-06-19 11:26 | XR_ITS ---
WS: [id number] XR chest 1V portable [id number] REASON FOR EXAM: SOB FINDINGS: Cardiac device over the left chest with transvenous left subclavian lead to the right ventricular ape x. Left atrial appendage clip. Moderate tortuosity thoracic aorta. The heart is not significantly enlarged. No acute pulmonary parenchymal or pleural abnormality. XR/XR chest 1V portable [id number] IMPRESSION: No acute chest abnormality.
--- NOTE | 2022-06-19 11:58 | CT_ITS ---
WS: [id number] CT ABDOMEN AND PELVIS NONCONTRAST HISTORY: concern for diverticulitis TECHNIQUE: Imaging performed through the abdomen and pelvis. Coronal and sagittal reformats are submi tted. All CT scans at [facility] use at least one of these dose optimization techniques: auto mated exposure control; mA and/or kV adjustment per patient size (includes targeted exams where dose is matched to clinical indication); or iterative reconstruction. DLP: 1083.03 mGy.cm COMPARISON: 03/03/2020 Lower thorax: Lung bases are clear. Visualized heart is normal. No hiatal hernia. Liver: Numerous low-attenuation masses throughout the liver. These have been previously described as cysts. No solid mass. No bile duct dilatation. Gallbladder: Normal gallbladder. Pancreas: Normal size and attenuation. Normal pancreatic duct. No pancreatitis or mass. Spleen: Normal. Adrenal glands: Small nodules associated with each adrenal gland are too small to characterize. No ch perry or progression in size since the prior exam. Right kidney: Numerous cysts. Some of these masses within the renal cortex are low attenuation. Hyper dense nodule in the lower pole measures 3.6 x 2.6 cm with no increase in size. No obstruction. Left kidney: Normal size kidney with perinephric stranding. Stable low-attenuation masses. Aorta: Mild atherosclerosis abdominal aorta with no aneurysm. No free fluid, intraperitoneal air or significant lymphadenopathy. GI tract: Normal appendix. Normal stomach and small bowel. Numerous diverticula in the descending and sigmoid colon. Moderate diffuse wall thickening with narrowing of the lumen through the sigmoid. No acute diverticulitis. Abdominal wall: Negative. No hernia. Pelvis: Well-distended urinary bladder. No free fluid or adenopathy. Osseous structures: 5 mm retrolisthesis of L5. Severe disc space narrowing at L5-S1. CT/CT abdomen pelvis wo con [id number] IMPRESSION: 1. Moderate sigmoid diverticulosis without acute diverticulitis. 2. Numerous hepatic and bilateral renal cysts. Additional hyperdense RIGHT david al mass is stable. 3. Normal appendix. 4. Atherosclerosis aorta.
[2022-06-19 11:59] LABS: Basophils # 0.1 10^3/uL (0.0-0.1); Basophils % 0.8 %; Eosinophils # 0.2 10^3/uL (0.0-0.8); Eosinophils % 1.9 %; Hematocrit 47.6 % (42.0-52.0); Hemoglobin 16.6 g/dL (11.7-16.6); Lymphocytes # 2.8 10^3/uL (0.8-4.8); Lymphocytes % 27.7 %; Mean Corpuscular HGB Conc 34.9 g/dL (30.0-36.0); Mean Corpuscular Hemoglobin 33.1 pg (28.0-34.0); Mean Platelet Volume 11.7 fL (7.4-10.4); Monocytes % 10.3 %; Neutrophils # 5.97 10^3/uL (1.8-7.7); Neutrophils % 59.1 %; Nucleated Red Blood Cells % 0 %; Platelet Count 210 10^3/cmm (130-400); Red Blood Count 5.01 10^6/uL (4.1-5.3); Red Cell Distribution Width 12.7 % (12.1-15.1); White Blood Count 10.1 10^3/uL (4.0-10.0)
[2022-06-19] MEDS: fentaNYL 50 mcg/mL INJ 2mL IVP (12:09)
[2022-06-19] MEDS: ondansetron 2 mg/ML SDV 2 mL 4 MG IVP (12:09)
[2022-06-19 12:22] LABS: Lactate (Lactic Acid level) 1.8 mmol/L (0.5-2.2)
[2022-06-19 12:30] LABS: Troponin(5th) Baseline 67 ng/L (0-15)
[2022-06-19 12:31] LABS: Alanine Aminotransferase 19 U/L (0-41); Albumin Level 4.1 g/dL (3.5-5.2); Alkaline Phosphatase 59 IU/L (40-130); Anion Gap 21.2 (5-19); Aspartate Amino Transferase 21 U/L (0-40); Blood Urea Nitrogen 55 mg/dL (8-23); Calcium 9.9 mg/dL (8.5-10.5); Carbon Dioxide 22 mmol/L (22-29); Chloride 94 mmol/L (98-107); Globulin 2.9 g/dL (1.3-4.6); Glomerular Filtration Rate 30.1 mL/min (90-130); Glucose 134 mg/dL (65-115); Lipase 21 U/L (13-60); Magnesium 2.1 mg/dL (1.7-2.3); Osmolality Calculated 293 mOsm/kg (285-295); Potassium 4.2 mmol/L (3.5-5.1); Sodium 133 mmol/L (136-145); Total Bilirubin 1.1 mg/dL (0.15-1.2)
--- NOTE | 2022-06-19 12:44 | W.ED.ABDPA2 ---
HPI - Abdominal Pain General: Chief Complaint: Abdominal Pain Stated Complaint: Paleness, weakness, nausea Time Seen by Provider: 06/19/22 11:50 History of Present Illness: Patient comes in with abdominal pain. States for the past week he has had left lower quadrant abdominal pain that slowly progressed to the entire abdomen. States has a history of diverticulitis. Also has nausea. Denies fever, and vomiting. States he has had some blood in his stool the last couple of days. Associated Symptoms: Reports nausea; Denies dysuria, fever(s) and vomiting Review of Systems Const: Denies: fever(s) or body aches Eyes: Denies: change in vision or blurry vision ENMT: Denies: throat pain or odynophagia Card: Denies: chest pain or palpitations Resp: Denies: dyspnea or productive cough GI: Reports: abdominal pain and nausea; Denies: vomiting : Denies: flank pain or dysuria Musc: Denies: neck pain or back pain Skin/Breast: Denies: rash or pruritus Neuro: Denies: headache(s) or numbness in extremities Psych: Denies: anxiety or change in appetite Endo: Denies: polyuria or excessive sweating PFSH ED PFSH: Medical History Atrial fibrillation s/p hybrid Maze (VATS) and atrial fibrillation ablation in Jun 2017 Cardiomyopathy COPD (chronic obstructive pulmonary disease) Dyslipidemia HTN (hypertension) Psychiatric care Surgical History AICD (automatic cardioverter/defibrillator) present H/O cardiac radiofrequency ablation H/O circumcision H/O colonoscopy 3 yrs ago, H/O heart surgery Maze H/O removal of cyst thyroid, testicle H/O umbilical hernia repair Family History Father Myocardial infarct Mother Aneurysm Grandmother Cancer liver Other CAD (coronary artery disease) Denies family history of Diabetes Anesthesia complication Bleeding disorder Social History Smoking and tobacco status: former smoker Quit status (tobacco): has quit using tobacco Alcohol intake: current Alcohol intake frequency: holidays/special occasions only Household members: family Marital status: Single Current occupational status: retired History of recent travel: No Physical Exam Const: COMMON NORMALS: no acute distress, patient oriented x3, healthy appearing and alert HENMT: COMMON NORMALS: normocephalic and atraumatic HEAD & SCALP: normocephalic and atraumatic Eye: COMMON NORMALS: Equal, round and reactive pupils present and EOMs intact bilaterally PUPIL: Yes Equal, round and reactive pupils present Neck/C-Spine: COMMON NORMALS: full ROM and supple Resp: COMMON NORMALS: normal respiratory effort, No retractions and No use of accessory muscles Cardio: COMMON NORMALS: regular rate and regular rhythm RATE: regular rate RHYTHM: regular rhythm GI: OTHER: Abdomen is soft, generalized tenderness to palpation worse in the left lower quadrant Back/Pelvis: COMMON NORMALS: thoracic and lumbar spine normal to inspection and no thoracic nor lumbar tenderness Extremity: COMMON NORMALS: normal to inspection and full ROM Neuro: COMMON NORMALS: patient oriented x3 SENSORIUM/ORIENTATION: Yes alert Psych: COMMON NORMALS: mental status grossly normal and cooperative Skin: COMMON NORMALS: no rashes or lesions noted and no wounds GENERAL SKIN EXAM: no rashes or lesions noted Course Vital Signs: Vital signs: Vital Signs Temperature 97.8 F 06/19/22 11:19 Pulse Rate 79 06/19/22 13:16 Respiratory Rate 16 06/19/22 13:16 Blood Pressure 99/50 06/19/22 13:16 Pulse Oximetry 87 L 06/19/22 13:16 Oxygen Delivery Me thod 06/19/22 13:16 MDM - Abdominal Pain Medical Decision Making Patient comes in with abdominal pain. States for the past week he has had left lower quadrant abdominal pain that slowly progressed to the entire abdomen. States has a history of diverticulitis. Also has nausea. Denies fever, and vomiting. States he has had some blood in his stool the last couple of days. On physical exam he has generalized abdominal tenderness to palpation worse in the left lower quadrant. Will check labs, CT, treat pain with IV narcotics, treat nausea with IV Zofran, and reassess. On reassessment I talked to the pt about the test results. I discussed the pt with the hospitalist. We will admit the pt for further workup and treatment for his acute renal failure. Lab Data : 06/19/22 11:41 06/19/22 11:41 Labs/Radiology: Radiology Impressions Chest X-Ray 06/19/22 11:26 IMPRESSION: No acute chest abnormality. Abdomen/Pelvis CT 06/19/22 11:58 IMPRESSION: 1. Moderate sigmoid diverticulosis without acute diverticulitis. 2. Numerous hepatic and bilateral renal cysts. Additional hyperdense RIGHT renal mass is stable. 3. Normal appendix. 4. Atherosclerosis aorta. Laboratory Results WBC 10.1 10^3/uL (4.0-10.0) H 06/19/22 11:41 RBC 5.01 10^6/uL (4.1-5.3) 06/19/22 11:41 Hgb 16.6 g/dL (11.7-16.6) 06/19/22 11:41 Hct 47.6 % (42.0-52.0) 06/19/22 11:41 MCV 95.0 fl (80-94) H 06/19/22 11:41 MCH 33.1 pg (28.0-34.0) 06/19/22 11:41 MCHC 34.9 g/dL (30.0-36.0) 06/19/22 11:41 RDW 12.7 % (12.1-15.1) 06/19/22 11:41 Plt Count 210 10^3/cmm (130-400) 06/19/22 11:41 MPV 11.7 fL (7.4-10.4) H 06/19/22 11:41 Neut % (Auto) 59.1 % 06/19/22 11:41 Lymph % (Auto) 27.7 % 06/19/22 11:41 [place] % (Auto) 10.3 % 06/19/22 11:41 Eos % (Auto) 1.9 % 06/19/22 11:41 Baso % (Auto) 0.8 % 06/19/22 11:41 Neut # (Auto) 5.97 10^3/uL (1.8-7.7) 06/19/22 11:41 Lymph # (Auto) 2.8 10^3/uL (0.8-4.8) 06/19/22 11:41 [place] # (Auto) 1.0 10^3/uL (0.2-0.9) H 06/19/22 11:41 Eos # (Auto) 0.2 10^3/uL (0.0-0.8) 06/19/22 11:41 Baso # (Auto) 0.1 10^3/uL (0.0-0.1) 06/19/22 11:41 Nucleated RBC % (auto) 0 % 06/19/22 11:41 Nucleated RBCs # 0.0 /100WBC 06/19/22 11:41 Sodium 133 mmol/L (136-145) L 06/19/22 11:41 Potassium 4.2 mmol/L (3.5-5.1) 06/19/22 11:41 Chloride 94 mmol/L (98-107) L 06/19/22 11:41 Carbon Dioxide 22 mmol/L (22-29) 06/19/22 11:41 Anion Gap 21.2 (5-19) H 06/19/22 11:41 BUN 55 mg/dL (8-23) H 06/19/22 11:41 Creatinine 2.2 mg/dL (0.7-1.2) H 06/19/22 11:41 GFR Calculation 30.1 mL/min (90-130) L 06/19/22 11:41 Glucose 134 mg/dL (65-115) H 06/19/22 11:41 Calculated Osmolality 293 mOsm/kg (285-295) 06/19/22 11:41 Lactate 1.8 mmol/L (0.5-2.2) 06/19/22 11:41 Calcium 9.9 mg/dL (8.5-10.5) 06/19/22 11:41 Magnesium 2.1 mg/dL (1.7-2.3) 06/19/22 11:41 Magnesium Cancelled 06/19/22 11:41 Total Bilirubin 1.1 mg/dL (0.15-1.2) 06/19/22 11:41 AST 21 U/L (0-40) 06/19/22 11:41 ALT 19 U/L (0-41) 06/19/22 11:41 Alkaline Phosphatase 59 IU/L (40-130) 06/19/22 11:41 Troponin T Baseline 67 ng/L (0-15) H 06/19/22 11:41 Total Protein 7.0 g/dL (6.6-8.7) 06/19/22 11:41 Albumin 4.1 g/dL (3.5-5.2) 06/19/22 11:41 Globulin 2.9 g/dL (1.3-4.6) 06/19/22 11:41 Lipase 21 U/L (13-60) 06/19/22 11:41 Discharge Plan Discharge Patient Disposition: Placed in Observation Clinical Impression: Acute kidney failure Coding Level of Care Code ED Hospitality House Supervisor for Krista Fwd Exam Comprehensive
--- NOTE | 2022-06-19 13:03 | ECG_ITS ---
[facility] Test Date: 2022-06-19 Pat Name: Yayo Rivera Department: Room: Gender: Male Regional Business Manager: : 1955 Requested By: Evelin Klein Order Number: [id number] Filipe MD: Kami Hendrix M.D. Measurements Intervals [place] Rate: 78 P: 61 [place]: 188 QRS: -53 QRSD: 105 T: 62 QT: 405 QTc: 463 Interpretive Statements SINUS RHYTHM WITH OCCASIONAL VENTRICULAR PREMATURE COMPLEXES LOW QRS VOLTAGE IN PRECORDIAL LEADS [QRS DEFLECTION < 1.0 mV IN CHEST LEADS] POSSIBLE RIGHT VENTRICULAR CONDUCTION DELAY [RSR (QR) IN V1/V2] LEFT ANTERIOR FASCICULAR BLOCK [QRS AXIS <= -45, QR IN I, RS IN II] POSSIBLE ANTERIOR MYOCARDIAL INFARCTION , PROBABLY OLD [30 ms Q WAVE IN V3/V4, OR R < 0.2 mV IN V4] Compared to ECG 06/19/2022 11:26:54 Left anterior fascicular block now present Left-axis deviation no longer present Incomplete right bundle-branch block no longer present Myocardial infarct finding still present Electronically Signed On 06-19-2022 18:36:29 CDT by Kami Hendrix M.D. [id number]
--- NOTE | 2022-06-19 13:45 | P.HP_ITS ---
Providers/Chief Complaint Primary Care Provider: Wilman Larios MD Chief Complaint: Paleness, weakness, nausea History of Present Illness Yayo Rivera is a 67 year old male who presents today with chief complaint of generalized weakness. Recently his diuretics doses have been increased, as per the patient with initiation of metolazone he started experiencing increased urine output, he has lost significant amount of weight, he is also spearing seeing blood with his stools he has history of hemorrhoids. He present to the hospital feeling lethargic and fatigued. In the ER he was diagnosed with FORREST. He was hypotensive responded very well to IV fluid hydration troponins were unremarkable with negative delta No remarkable findings abdominal pelvis CT scan, EKG unremarkable Review of Systems Const: Reports: body aches, change in appetite and change in weight Eyes: Denies: change in vision ENMT: Denies: throat pain Card: Denies: chest pain Resp: Denies: dyspnea GI: Denies: abdominal pain : Denies: flank pain Musc: Denies: neck pain Skin/Breast: Denies: rash Neuro: Denies: headache(s) Psych: Denies: anxiety Endo: Denies: polyuria Philippe/Lymph: Denies: easy bruising All/Imm: Denies: urticaria Medications/Allergies Home Medications Medication Instructions Recorded Confirmed Last Taken Type ascorbic acid (vitamin C) 1,000 mg 1 gm PO QAM 11/15/19 06/19/22 06/19/22 History tablet aspirin 81 mg tablet,delayed 81 mg PO QAM 11/15/19 06/19/22 06/19/22 History release (Adult Low Dose Aspirin) vitamin B complex (B 1 tab PO QAM 11/15/19 06/19/22 06/19/22 History Complex-Vitamin B12) atorvastatin 20 mg tablet 20 mg PO BEDTIME #90 tabs 01/05/22 06/19/22 06/18/22 Rx trazodone 100 mg tablet 100 mg PO BEDTIME #90 tabs 01/21/22 06/19/22 06/18/22 Rx torsemide 20 mg tablet 20 mg PO BID #180 tabs 02/17/22 06/19/22 06/19/22 Rx carvedilol 12.5 mg tablet 12.5 mg PO BID #180 tabs 06/12/22 06/19/22 06/19/22 Rx sacubitril 97 mg-valsartan 103 mg 1 tab PO BID #180 tabs 06/12/22 06/19/22 06/17/22 Rx tablet allopurinol 100 mg tablet 100 mg PO BID 06/19/22 06/19/22 06/19/22 History alprazolam 0.5 mg tablet 0.5 mg PO BEDTIME 06/19/22 06/19/22 06/18/22 History cholecalciferol (vitamin D3) 50 50 mcg PO DAILY 06/19/22 06/19/22 Unknown History mcg (2,000 unit) tablet (Vitamin D3) ipratropium bromide 17 2 puff inhalation QAM 06/19/22 06/19/22 06/19/22 History mcg/actuation HFA aerosol inhaler (Atrovent HFA) magnesium oxide 400 mg PO QAM 06/19/22 06/19/22 06/19/22 History rivaroxaban 20 mg tablet (Xarelto) 20 mg PO QAM 06/19/22 06/19/22 06/19/22 08:30 History spironolactone 25 mg tablet 12.5 mg PO QAM 06/19/22 06/19/22 06/19/22 History tizanidine 6 mg capsule 6 mg PO BEDTIME PRN muscle 06/19/22 06/19/22 Unknown History spasticity Allergies Allergy/AdvReac Type Severity Reaction Status Date / Time diltiazem [From Cardizem] Allergy Unknown ADR/ALGY-Hy Verified 06/12/22 09:20 potension PFSH Acute PFSH: Medical History Atrial fibrillation s/p hybrid Maze (VATS) and atrial fibrillation ablation in Jun 2017 Cardiomyopathy COPD (chronic obstructive pulmonary disease) Dyslipidemia HTN (hypertension) Psychiatric care Surgical History AICD (automatic cardioverter/defibrillator) present H/O cardiac radiofrequency ablation H/O circumcision H/O colonoscopy 3 yrs ago, H/O heart surgery Maze H/O removal of cyst thyroid, testicle H/O umbilical hernia repair Family History Father Myocardial infarct Mother Aneurysm Grandmother Cancer liver Other CAD (coronary artery disease) Denies family history of Diabetes Anesthesia complication Bleeding disorder Social History Smoking and tobacco status: former smoker Quit status (tobacco): has quit using tobacco Alcohol intake: current Alcohol intake frequency: holidays/special occasions only Household members: family Marital status: Single Current occupational status: retired History of recent travel: No Vitals/I&O/Wt Last Vital Signs Temp 97.8 F 06/19/22 11:19 Pulse 79 06/19/22 13:16 Resp 16 06/19/22 13:16 BP 99/50 06/19/22 13:16 Pulse Ox 87 L 06/19/22 13:16 O2 Del Method 06/19/22 13:16 Weight last 48 hrs Weight 120.202 kg Physical Exam Narrative: Pleasant male Looks euvolemic Awake and alert On room air Nonfocal neuro exam Lungs are clear Nonfocal neuro exam Abdomen soft No signs of edema No sign of skin cellulitis Appropriate mood and affect Data : 06/20/22 04:18 06/20/22 04:18 A&P Assessment and plan (1) Acute kidney failure: Status: Acute (2) Systolic CHF: Status: Acute Qualifiers: Heart failure chronicity: chronic Qualified Code(s): I50.22 - Chronic systolic (congestive) heart failure (3) Hypotensive episode: Status: Acute (4) Dehydration: Status: Acute Plan FORREST related to over diuresis Hold diuretics Hypotensive: Responded well to IV fluids Weakness related to dehydration Gentle fluid hydration Full code Compensated S CHF ' no acute decompensated Reduce rivoroxaban dose due to forrest Discontinue Entresto, spironolactone and Lasix Attestations Medical Necessity Statement*: Discharge within 48 hours Time Spent in Patient Care: 30mins Coding Level of Care Code Acute Enrichment Assistant for g Fwd Diagnoses Acute kidney failure N17.9 Systolic CHF I50.22 Heart failure chronicity: chronic Hypotensive episode I95.9 Dehydration E86.0
[2022-06-19] MEDS: sodium chloride 0.9% 500 ML 999 ML IV ×2 (13:55→21:17)
[2022-06-19 13:57] LABS: NT Pro B Type Natriuretic Pept 353 pg/mL (0-125)
[2022-06-19 14:14] LABS: Troponin 5 2HR 61.41 ng/L (0-15)
[2022-06-19 14:16] LABS: Troponin 5 2HR Delta -5.59 ABS# (0-10)
[2022-06-19 14:36] LABS: Add Urine Microscopic? NO; Charge for UA Resulting for Rev
[2022-06-19 14:39] LABS: Urine Color Yellow (Yellow)
[2022-06-19 14:40] LABS: Bilirubin Urine Neg (Negative); Blood Urine Neg (Negative); Glucose Urine UA Norm (Normal); Ketones Urine Negative (Negative); Leukocyte Esterase Urine Negative (Negative); Nitrate Urine Negative (Negative); Protein Urine Neg (Negative); Specific Gravity, Urine 1.015 (1.005-1.030); Urine Appearance Clear (CLEAR); Urobilinogen Urine Norm (Negative); pH Urine 6 (5-7)
[2022-06-19 16:50] LABS: Vitamin B12 704 pg/mL (232-1245)
--- NOTE | 2022-06-19 17:50 | ECG_ITS ---
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 Measurements Intervals [place] Rate: 77 P: 64 NE: 177 QRS: -62 QRSD: 133 T: 81 QT: 426 QTc: 485 Interpretive Statements SINUS RHYTHM WITH OCCASIONAL VENTRICULAR PREMATURE COMPLEXES INTRAVENTRICULAR CONDUCTION DELAY [130+ ms QRS DURATION] POSSIBLE ANTERIOR MYOCARDIAL INFARCTION , PROBABLY OLD [30 ms Q WAVE IN V3/V4, OR R < 0.2 mV IN V4] Compared to ECG 06/19/2022 14:22:11 Intraventricular conduction delay now present Left anterior fascicular block no longer present Myocardial infarct finding still present Electronically Signed On 06-19-2022 18:38:22 CDT by Kami Hendrix M.D. [id number]
[2022-06-19] MEDS: carvedilol 12.5 mg Tablet PO (18:07)
[2022-06-19] MEDS: allopurinol 100 mg Tablet PO (18:07)
[2022-06-19 18:08] LABS: Troponin 5 6HR 64.96 ng/L (0-15)
[2022-06-19 18:11] LABS: Troponin 5 6HR Delta -2.04 ng/L (0-12)
[2022-06-19] MEDS: trazodone 100 mg Tablet PO (21:17)
[2022-06-20] VITALS (7 sets, daily range): BP systolic 78–110; BP diastolic 57–69; PULSE 80–94; RESP 16–18; TEMP 36.6–36.7; O2SAT 94–95
[2022-06-20 04:56] LABS: Basophils # 0.1 10^3/uL (0.0-0.1); Basophils % 0.7 %; Eosinophils # 0.2 10^3/uL (0.0-0.8); Eosinophils % 2.3 %; Hematocrit 45.5 % (42.0-52.0); Hemoglobin 15.5 g/dL (11.7-16.6); Lymphocytes # 2.5 10^3/uL (0.8-4.8); Lymphocytes % 29.3 %; Mean Corpuscular HGB Conc 34.1 g/dL (30.0-36.0); Mean Corpuscular Hemoglobin 33.1 pg (28.0-34.0); Mean Corpuscular Volume 97.2 fl (80-94); Monocytes # 0.9 10^3/uL (0.2-0.9); Monocytes % 10.2 %; Neutrophils # 4.83 10^3/uL (1.8-7.7); Neutrophils % 57.3 %; Nucleated Red Blood Cells % 0 %; Platelet Count 196 10^3/cmm (130-400); Red Blood Count 4.68 10^6/uL (4.1-5.3); Red Cell Distribution Width 12.8 % (12.1-15.1); White Blood Count 8.4 10^3/uL (4.0-10.0)
[2022-06-20 05:23] LABS: Anion Gap 17.9 (5-19); Blood Urea Nitrogen 58 mg/dL (8-23); Calcium 9.1 mg/dL (8.5-10.5); Carbon Dioxide 27 mmol/L (22-29); Chloride 100 mmol/L (98-107); Glomerular Filtration Rate 35.6 mL/min (90-130); Glucose 127 mg/dL (65-115); Magnesium 2.2 mg/dL (1.7-2.3); Osmolality Calculated 308 mOsm/kg (285-295); Potassium 4.9 mmol/L (3.5-5.1); Sodium 140 mmol/L (136-145)
--- NOTE | 2022-06-20 05:51 | PC.NURSE ---
patient BP has been soft this shift, 500 ml NS bolus given as ordered, Hospitalist notified, coreg placed on hold and wishes to monitor pt.
[2022-06-20] MEDS: rivaroxaban 10 mg Tablet PO (06:05)
[2022-06-20] MEDS: aspirin 81 mg EC Tablet PO (06:05)
[2022-06-20] MEDS: allopurinol 100 mg Tablet PO (08:08)
--- NOTE | 2022-06-20 12:21 | PM.DCS ---
Discharge Providers Date of Admission: 06/19/22 13:46 Date of Discharge: June 20, 2022 Attending Provider at Admission: Espinoza White MD Attending Provider at Discharge: Espinoza White MD Primary Care Provider: Wilman Larios MD Reason for Visit Reason for Visit: Paleness, weakness, nausea Hospital Course Hospital Course 67-year-old who carries history of systolic congestive heart failure status post AICD/pacemaker placement, at home patient takes Entresto, spironolactone, torsemide, recently higher dose of metolazone was added by Kourtney Carrillo. Patient is stating that since admission of metolazone he has been feeling very lethargic and fatigued his urine output has increased and he has lost significant mount of weight. In the ER he was diagnosed with FORREST which improved with IV fluid hydration. He was also hypotensive. Responded very well to IV fluid hydration. Patient does not want to stay in the hospital over the weekend. I gave him prescription to check his creatinine on Wednesday and stopped his Entresto, torsemide, spironolactone, close follow-up with his PCP. Patient is endorsing feeling better on 06/20. Likely etiology for FORREST was overdiuresis. Physical Exam Narrative: Awake and alert S1, S2 variable Abdomen soft Improvement in energy Hydrated No signs of heart failure No signs of edema EOMI, PERRLA Satting well on room air Discharge Data Studies Completed and Pending Completed Studies During Hospitalization Category Date Time Status CT abdomen pelvis wo con [id number] Stat Cat Scan 06/19/22 11:58 Completed XR chest 1V portable [id number] Stat Exams 06/19/22 11:26 Completed Radiology Impressions Chest X-Ray 06/19/22 11:26 IMPRESSION: No acute chest abnormality. Abdomen/Pelvis CT 06/19/22 11:58 IMPRESSION: 1. Moderate sigmoid diverticulosis without acute diverticulitis. 2. Numerous hepatic and bilateral renal cysts. Additional hyperdense RIGHT renal mass is stable. 3. Normal appendix. 4. Atherosclerosis aorta. Laboratory Results WBC 8.4 10^3/uL (4.0-10.0) 06/20/22 04:18 RBC 4.68 10^6/uL (4.1-5.3) 06/20/22 04:18 Hgb 15.5 g/dL (11.7-16.6) 06/20/22 04:18 Hct 45.5 % (42.0-52.0) 06/20/22 04:18 MCV 97.2 fl (80-94) H 06/20/22 04:18 MCH 33.1 pg (28.0-34.0) 06/20/22 04:18 MCHC 34.1 g/dL (30.0-36.0) 06/20/22 04:18 RDW 12.8 % (12.1-15.1) 06/20/22 04:18 Plt Count 196 10^3/cmm (130-400) 06/20/22 04:18 MPV 12.0 fL (7.4-10.4) H 06/20/22 04:18 Neut % (Auto) 57.3 % 06/20/22 04:18 Lymph % (Auto) 29.3 % 06/20/22 04:18 [place] % (Auto) 10.2 % 06/20/22 04:18 Eos % (Auto) 2.3 % 06/20/22 04:18 Baso % (Auto) 0.7 % 06/20/22 04:18 Neut # (Auto) 4.83 10^3/uL (1.8-7.7) 06/20/22 04:18 Lymph # (Auto) 2.5 10^3/uL (0.8-4.8) 06/20/22 04:18 [place] # (Auto) 0.9 10^3/uL (0.2-0.9) 06/20/22 04:18 Eos # (Auto) 0.2 10^3/uL (0.0-0.8) 06/20/22 04:18 Baso # (Auto) 0.1 10^3/uL (0.0-0.1) 06/20/22 04:18 Nucleated RBC % (auto) 0 % 06/20/22 04:18 Nucleated RBCs # 0.0 /100WBC 06/20/22 04:18 Sodium 140 mmol/L (136-145) 06/20/22 04:18 Potassium 4.9 mmol/L (3.5-5.1) 06/20/22 04:18 Chloride 100 mmol/L (98-107) 06/20/22 04:18 Carbon Dioxide 27 mmol/L (22-29) 06/20/22 04:18 Anion Gap 17.9 (5-19) 06/20/22 04:18 BUN 58 mg/dL (8-23) H 06/20/22 04:18 Creatinine 1.9 mg/dL (0.7-1.2) H 06/20/22 04:18 GFR Calculation 35.6 mL/min (90-130) L 06/20/22 04:18 Glucose 127 mg/dL (65-115) H 06/20/22 04:18 Calculated Osmolality 308 mOsm/kg (285-295) H 06/20/22 04:18 Lactate 1.8 mmol/L (0.5-2.2) 06/19/22 11:41 Calcium 9.1 mg/dL (8.5-10.5) 06/20/22 04:18 Magnesium 2.2 mg/dL (1.7-2.3) 06/20/22 04:18 Total Bilirubin 1.1 mg/dL (0.15-1.2) 06/19/22 11:41 AST 21 U/L (0-40) 06/19/22 11:41 ALT 19 U/L (0-41) 06/19/22 11:41 Alkaline Phosphatase 59 IU/L (40-130) 06/19/22 11:41 Troponin T Baseline 67 ng/L (0-15) H 06/19/22 11:41 Troponin T 120 Minute 61.41 ng/L (0-15) H 06/19/22 13:45 Delta Troponin T -5.59 ABS# (0-10) L 06/19/22 13:45 Troponin T Hi Sens 6Hr 64.96 ng/L (0-15) H 06/19/22 17:36 Troponin T Hi Sens 6Hr Delta -2.04 ng/L (0-12) L 06/19/22 17:36 NT-Pro-B Natriuret Pep 353 pg/mL (0-125) H 06/19/22 11:41 Total Protein 7.0 g/dL (6.6-8.7) 06/19/22 11:41 Albumin 4.1 g/dL (3.5-5.2) 06/19/22 11:41 Globulin 2.9 g/dL (1.3-4.6) 06/19/22 11:41 Lipase 21 U/L (13-60) 06/19/22 11:41 Vitamin B12 704 pg/mL (232-1245) 06/19/22 11:41 Urine Color Yellow (Yellow) 06/19/22 14:20 Urine Appearance Clear (CLEAR) 06/19/22 14:20 Urine pH 6 (5-7) 06/19/22 14:20 Ur Specific [place] 1.015 (1.005-1.030) 06/19/22 14:20 Urine Protein Neg (Negative) 06/19/22 14:20 Urine Glucose (UA) Norm (Normal) 06/19/22 14:20 Urine Ketones Negative (Negative) 06/19/22 14:20 Urine Blood Neg (Negative) 06/19/22 14:20 Urine Nitrate Negative (Negative) 06/19/22 14:20 Urine Bilirubin Neg (Negative) 06/19/22 14:20 Urine Urobilinogen Norm mg/dL (Negative) 06/19/22 14:20 Ur Leukocyte Esterase Negative (Negative) 06/19/22 14:20 Vitals Last Vital Signs Temp 97.8 F 06/20/22 11:46 Pulse 94 06/20/22 11:46 Resp 17 06/20/22 11:46 BP 110/69 06/20/22 11:46 Pulse Ox 94 06/20/22 11:46 O2 Del Method 06/20/22 11:46 O2 Flow Rate 2 06/19/22 15:27 Discharge Plan Discharge Patient Disposition: Home Condition: Stable Prescriptions: Continued aspirin [Adult Low Dose Aspirin] 81 mg tablet,delayed release (DR/EC) 81 mg PO QAM vitamin B complex [B Complex-Vitamin B12] Tablet 1 tab PO QAM ascorbic acid (vitamin C) 1,000 mg tablet 1 gm PO QAM carvedilol 12.5 mg tablet 12.5 mg PO BID Qty: 180 3RF atorvastatin 20 mg tablet 20 mg PO BEDTIME Qty: 90 3RF trazodone 100 mg tablet 100 mg PO BEDTIME Qty: 90 3RF Vitamin D3 50 mcg (2,000 unit) Tablet 50 mcg PO DAILY magnesium oxide 400 mg magnesium Tablet 400 mg PO QAM allopurinol 100 mg tablet 100 mg PO BID alprazolam 0.5 mg tablet 0.5 mg PO BEDTIME tizanidine 6 mg capsule 6 mg PO BEDTIME PRN (Reason: muscle spasticity) Atrovent HFA 17 mcg/actuation HFA aerosol inhaler 2 puff INHALATION QAM Xarelto 20 mg tablet 20 mg PO QAM Held sacubitril-valsartan 97-103 mg tablet 1 tab PO BID Qty: 180 3RF Hold Instructions: Resume on 06/27/22. torsemide 20 mg tablet 20 mg PO BID Qty: 180 3RF Hold Instructions: Resume on 06/27/22. spironolactone 25 mg tablet 12.5 mg PO QAM Hold Instructions: Resume on 06/27/22. Discontinued potassium gluconate 595 mg (99 mg) Tablet 892.5 mg PO BID metolazone 2.5 mg tablet 1.25 mg PO EVERY OTHER DAY Rx Instructions: Take 30 minutes before morning dose of torsemide, 1 dose every other day Discharge Orders: Discharge Order (Routine); Ordered 06/20/22 Ordered By: Espinoza White Other Ambulatory Orders: Basic Metabolic Panel (Routine) Timeframe: 3 Days Facility: [facility] - Location: Lab - Main Lab Ordered By: Espinoza White Referrals: Wilman Larios MD [Primary Care Provider] - 4-7 days (Please call Dr. Larios's Office at [phone] on Wednesday to schedule a follow up appointment. Thank you.) Discharge Diet: Cardiac Discharge Activity: Increase activity as tolerated Patient Instructions: COPD, Acute Kidney Injury (GEN), COPD Stoplight, Opioid Safety Activity Restrictions/Additional Instructions: Please do not take Entresto, spironolactone and torsemide for at least 1 week, check your blood chemistry within 3 days and follow-up with your PCP. You can continue your rivaroxaban. I have discontinued your metolazone Discharge Attestations Time Spent in Discharge Care*: less than 30 min Status at Discharge: Cognitive status at discharge: cognitively intact, Quality Metrics Clinical Quality Measures [ No reported AMI, CVA or VTE this stay] Coding Level of Care Code Acute Chg FW DC note
== END 2022-06-20 13:57 | disposition home or self-care (01) ==
LOC: ER 14:41 → MEDSURG 14:58
PROVIDERS: Emergency Medicine; Admitting Provider Internal Medicine; Emergency Provider Emergency Medicine; PCP Internal Medicine; Visit Provider Internal Medicine
DX: N17.9 Acute kidney failure, unspecified (principal); I11.0 Hypertensive heart disease with heart failure; I50.22 Chronic systolic (congestive) heart failure; I95.9 Hypotension, unspecified; E86.0 Dehydration; I48.91 Unspecified atrial fibrillation; J44.9 Chronic obstructive pulmonary disease, unspecified; E78.5 Hyperlipidemia, unspecified; Z87.891 Personal history of nicotine dependence
CPT/HCPCS: 36415; 71045; 74176; 80048; 80053; 81003; 82607; 83605; 83690; 83735; 83880; 84484; 85025; 93005; 94760; 96374; 96375; 99285; G0378; J2405; J3010; J7040

== ENCOUNTER 2022-06-22 09:28 | Outpatient (CLI) | payer MEDICARE, MEDICAID, SELFPAY ==
[2022-06-22 10:23] LABS: Anion Gap 16.2 (5-19); Blood Urea Nitrogen 32 mg/dL (8-23); Calcium 9.6 mg/dL (8.5-10.5); Carbon Dioxide 26 mmol/L (22-29); Chloride 100 mmol/L (98-107); Glomerular Filtration Rate 50.7 mL/min (90-130); Glucose 121 mg/dL (65-115); Osmolality Calculated 294 mOsm/kg (285-295); Potassium 4.2 mmol/L (3.5-5.1); Sodium 138 mmol/L (136-145)
== END 2022-06-22 09:29 | disposition home or self-care (01) ==
LOC: LAB 09:33
PROVIDERS: PCP Internal Medicine; Visit Provider Internal Medicine
DX: N17.9 Acute kidney failure, unspecified (principal)
CPT/HCPCS: 36415; 80048

== ENCOUNTER 2022-09-10 11:36 | Outpatient (CLI) | payer MEDICARE, MEDICAID, SELFPAY ==
--- NOTE | 2022-09-10 12:15 | USCV_ITS ---
Mohinder Riveraodore Age: 67 Gender: M : 1955 Exam Date: 09/10/2022 11:53 Ordering Phys: Kourtney Carrillo Technologist: MANDY Exam Location: [facility] – [place] Indication: EF OF LV BP: 98 / 64 HR: 69 Rhythm: Sinus Technical Quality: Suboptimal MEASUREMENTS (Male / Female) Normal Values 2D ECHO LVOT Diameter 2.0 cm LV Ejection Fraction MOD 2C 47.2 % LV Ejection Fraction 2C AL 47.3 % LA Diameter 3.7 cm LA Width 4.5 cm LA Height 5.1 cm RA Width 4.4 cm RA Height 5.8 cm Aorta at Sinotubular Diameter 2.5 cm IVC Diameter 1.1 cm M-MODE Aortic Annulus Diameter 3.8 cm LA Ao Ratio MM 1.0 DOPPLER AV Peak Velocity 110.0 cm/s LVOT Peak Velocity 78.0 cm/s AV Area Cont Eq vti 2.4 cm squared AV Area Cont Eq pk 2.3 cm squared MV Peak Velocity 58.0 cm/s MV Area PHT 4.3 cm squared Mitral E to A Ratio 1.7 MV E' Velocity 36.5 cm/s Mitral E to MV E' Ratio 6.9 Mitral E to LV E' Lateral Ratio 5.5 Mitral E to LV E' Septal Ratio 9.1 TR Peak Velocity 223.9 cm/s TR Peak Gradient 20.1 mmHg TR Mean Velocity 182.0 cm/s TR Mean Gradient 13.7 mmHg TR Velocity Time Integral 72.0 cm TV Peak E Velocity 34.0 cm/s Right Atrial Pressure 3.0 mmHg Pulmonary Artery Systolic Pressu 23.1 mmHg RV Acceleration Time 0.1 s RV Ejection Time 0.3 s RV AcT/ET 0.5 FINDINGS Left Ventricle Normal left ventricular size. Moderately decreased left ventricular systolic function. Left ventricular ejection fraction is estimated at 30-35 %. Moderate global left ventricular hypokinesis. Abnormal septal motion consistent with conduction abnormality. Right Ventricle Normal right ventricular size and systolic function. Right ventricular systolic pressure 23.1 mmHg. Right Atrium Normal right atrial size. Left Atrium Moderately increased left atrial size. Mitral Valve Structurally normal mitral valve. No mitral valve stenosis. Trace mitral valve regurgitation. Aortic Valve Aortic valve not well visualized. No aortic valve stenosis. No aortic valve regurgitation. Tricuspid Valve Structurally normal tricuspid valve. Pulmonic Valve Pulmonic valve not well visualized. Pericardium No pericardial effusion. Aorta Normal size aortic root and proximal ascending aorta. IVC Normal IVC dimension with >50% respiratory change of the inferior vena cava. CONCLUSIONS 1. Normal left ventricular size. Moderately decreased left ventricular systolic function. Left ventricular ejection fraction is estimated at 30-35 %. Moderate global left ventricular hypokinesis. 2. Normal right ventricular size and systolic function. 3. No significant valvular abnormality. 4. No significant change when compared to study dated 12/02/2020. Renetta Mejia MD (Electronically Signed) Final Date: 13 September 2022 18:17 S
== END 2022-09-10 11:37 | disposition home or self-care (01) ==
LOC: RAD 11:37
PROVIDERS: PCP Internal Medicine; Visit Provider Nurse Practitioner Family
DX: I50.22 Chronic systolic (congestive) heart failure (principal)
CPT/HCPCS: 93306

== ENCOUNTER → 2022-10-12 13:39 | Outpatient (BNVA) | payer MEDICARE, MEDICAID, SELFPAY | PROVIDERS: PCP Internal Medicine; Visit Provider Internal Medicine Cardiovascular Disease | DX: I48.0 Paroxysmal atrial fibrillation (principal); Z79.01 Long term (current) use of anticoagulants; I42.9 Cardiomyopathy, unspecified; I49.3 Ventricular premature depolarization; E78.5 Hyperlipidemia, unspecified; I11.0 Hypertensive heart disease with heart failure; I50.20 Unspecified systolic (congestive) heart failure; Z87.891 Personal history of nicotine dependence | CPT/HCPCS: 99214 ==

== ENCOUNTER 2022-12-03 11:58 | Emergency (ER) | payer MEDICARE, MEDICAID, SELFPAY ==
[2022-12-03 12:05] VITALS: PULSE 75; RESP 16; O2SAT 96; BMI 34.7
[2022-12-03 12:10] VITALS: BP 103/81; PULSE 78; RESP 18; O2SAT 97
[2022-12-03 12:13] VITALS: TEMP 36.2
--- NOTE | 2022-12-03 12:23 | CT_ITS ---
WS: [id number] CT ABDOMEN PELVIS TECHNIQUE: Noncontrast CT of the abdomen and pelvis with coronal and sagittal reformatted images. CLINICAL INFORMATION: Abdominal pain COMPARISON: CT 06/19/22 DLP: 1329.[address] scans at [facility] use at least one of these dose optimization techniques: automated e xposure control; mA and/or kV adjustment per patient size (includes targeted exams where dose is matc hed to clinical indication); or iterative reconstruction. FINDINGS: Diffuse thickening of the sigmoid colon with mild surrounding induration LEFT lower quadrant compatib le with acute diverticulitis. No evidence of drainable abscess or fluid collection. Recommend follow- up to resolution. Slightly spiculated nodule in the lingula measuring 10 mm. This is nonspecific and recommend interval follow-up chest CT. This is more prominent compared to June 19, 2022. Otherwise no significant changes since June 19, 2022. Additional tiny noncalcified nodule RIGHT lower lobe measuring 3 mm. A few additional tiny subcentime ter subpleural nodules in the lower lobes. Multiple hepatic cysts. These are stable compared to previous largest in the LEFT hepatic lobe measur ing 5.9 mm. Normal GE junction. Noncontrast spleen is normal. Mild fatty atrophy of the pancreas. Sma ll bilateral adrenal nodules likely adenomas. No hydronephrosis in either kidney. Bilateral renal cys ts. Hyperdense RIGHT renal lesions unchanged since June 19, 2022. Hyperdense RIGHT lower pole mass measuring 3.5 x 2.6 cm unchanged. Normal caliber abdominal aorta. Aortic calcification. Urine distended bladder. Prostate calcification . Normal caliber abdominal aorta. Fat-containing umbilical hernia. Grade 1 anterolisthesis L4 on L5. Disc space narrowing L5-S1. CT/CT abdomen pelvis wo con [id number] IMPRESSION: 1. Diffuse thickening of the sigmoid colon with mild surrounding induration LE FT lower quadrant compatible with acute diverticulitis. No evidence of drainabl e abscess or fluid collection. Recommend follow-up to resolution. 2. Slightly spiculated nodule in the lingula measuring 10 mm. This is nonspeci fic and recommend interval follow-up chest CT. This is more prominent compared to June 19, 2022. Recommend 3 month follow-up chest CT. 3. No other significant changes compared to previous. 4. Stable numerous hepatic and bilateral renal cysts. Largest hepatic cyst elena sures 5.9 cm LEFT hepatic lobe. 5. Hyperdense mass RIGHT lower kidney measuring 3.6 x 2.5 cm is unchanged. Notified Christopher Garnett DO at 12/03/2022 200PM.
--- NOTE | 2022-12-03 12:24 | ED_ITS ---
HPI - Abdominal Pain General: Chief Complaint: Abdominal Pain Stated Complaint: pain in the left side Time Seen by Provider: 12/03/22 12:18 Source: patient Mode of arrival: ambulatory History of Present Illness: 67-year-old male presents emergency room with left side pain. He states symptoms began 6 days ago he occasionally will have some blood-streaked stool from hemorrhoids and being on Xarelto that has not changed no significant increase and is only intermittent. He is complaining of pain mid left side of his abdomen. He denies hematuria. Denies any dysuria urgency or frequency. He has had some vomiting and diarrhea. He reports a subjective fever. He has had problems with diverticulitis in the past. He denies any coffee-ground emesis or hematemesis. MD elicited complaint: abdominal pain Pertinent past history: none Onset (ago): day(s) (6) Pain Consistency: constant Location: Other (Left mid abdomen) Severity: mild Quality: cramping Migration to: no migration Exacerbating factors: nothing Relieving factors: nothing Associated Symptoms: Reports anorexia, change in bowel habits, change in stool character, GI cramping, diarrhea, fever(s), loose stools, nausea, poor appetite and vomiting; Denies belching, bloating, chills, coffee ground emesis, constipation, dyspepsia, dysuria, excessive flatus, heartburn, hematochezia, hematuria, hematemesis, fecal incontinence, melena and syncope Review of Systems Const: Reports: fever(s); Denies: chills, fatigue or malaise ENMT: Denies: throat pain, ear or mastoid pain, nasal discharge or nasal congestion Card: Denies: chest pain, palpitations, irregular heart rhythm, edema or syncope Resp: Denies: dyspnea, productive cough or non-productive cough GI: Reports: abdominal pain, nausea, vomiting, diarrhea, GI cramping, change in bowel habits and change in stool character; Denies: hematemesis, coffee ground emesis, heartburn, constipation, bloating, belching, excessive flatus, fecal incontinence, hematochezia or melena : Denies: dysuria, urinary frequency, urinary urgency or hematuria Skin/Breast: Denies: rash or pruritus PFS ED PFSH: Medical History Atrial fibrillation s/p hybrid Maze (VATS) and atrial fibrillation ablation in Jun 2017 Cardiomyopathy COPD (chronic obstructive pulmonary disease) Dehydration Dyslipidemia HTN (hypertension) Hypotensive episode Systolic CHF Surgical History AICD (automatic cardioverter/defibrillator) present H/O cardiac radiofrequency ablation H/O circumcision H/O colonoscopy 3 yrs ago, H/O heart surgery Maze H/O removal of cyst thyroid, testicle H/O umbilical hernia repair Family History Father Myocardial infarct Mother Aneurysm Grandmother Cancer liver Other CAD (coronary artery disease) Denies family history of Diabetes Anesthesia complication Bleeding disorder Social History Smoking and tobacco status: former smoker Quit status (tobacco): has quit using tobacco Alcohol intake: current Alcohol intake frequency: holidays/special occasions only Household members: family Marital status: Single Current occupational status: retired History of recent travel: No Physical Exam Const: COMMON NORMALS: no acute distress GENERAL APPEARANCE: cooperative and comfortable ORIENTATION/CONSCIOUSNESS: Yes awake, Yes oriented to person, Yes oriented to place and Yes oriented to time HENMT: COMMON NORMALS: normocephalic, atraumatic and hearing grossly normal bilaterally HEAD & SCALP: normocephalic and atraumatic Eye: COMMON NORMALS: Equal, round and reactive pupils present, EOMs intact bilaterally, conjunctivae normal and no scleral icterus CONJUNCTIVA: Yes conjunctivae normal PUPIL: Yes Equal, round and reactive pupils present Neck/C-Spine: COMMON NORMALS: full ROM, no lymphadenopathy, supple and no JVD Lymph: LYMPHATIC: no lymphadenopathy noted and no lymphedema noted Resp: COMMON NORMALS: normal respiratory effort, No retractions, No use of accessory muscles and clear to auscultation bilaterally AUSCULTATION: clear to auscultation bilaterally Cardio: COMMON NORMALS: no JVD, regular rate, regular rhythm and No murmurs present (Cardio) RATE: regular rate RHYTHM: regular rhythm GI: COMMON NORMALS: Soft to palpation and No hepatosplenomegaly present AUSCULTATION: Yes normoactive bowel sounds PALPATION: Yes Soft to palpation, No Tenderness to palpation present (GI), No Guarding due to palpation present (GI) and Yes No hepatosplenomegaly present Extremity: COMMON NORMALS: normal to inspection, capillary refill normal, no clubbing, cyanosis or edema, no calf tenderness and no pedal edema Neuro: SENSORIUM/ORIENTATION: Yes oriented to person, Yes oriented to place and Yes oriented to time Skin: COMMON NORMALS: no rashes or lesions noted GENERAL SKIN EXAM: no rashes or lesions noted Course Vital Signs: Vital signs: Vital Signs Temperature 97.2 F L 12/03/22 12:13 Pulse Rate 77 12/03/22 12:37 Respiratory Rate 18 12/03/22 12:37 Blood Pressure 127/99 12/03/22 12:37 Pulse Oximetry 98 12/03/22 12:37 Oxygen Delivery Me thod 12/03/22 12:37 MDM - Abdominal Pain Medical Decision Making CT shows thickening of the colon consistent with diverticulitis White count is normal. We will start him on Cipro and Flagyl. Clinical diet for 24 to 48 hours and advance as tolerated. Patient reports having a colonoscopy just 6 months ago that was normal other than his diverticulitis Medical Records I reviewed the patient's medical records. Lab Data I reviewed the patient's lab results. 12/03/22 12:30 12/03/22 12:30 Labs/Radiology: Laboratory Results WBC 8.3 10^3/uL (4.0-10.0) 12/03/22 12:30 RBC 4.80 10^6/uL (4.1-5.3) 12/03/22 12:30 Hgb 15.8 g/dL (11.7-16.6) 12/03/22 12:30 Hct 46.2 % (42.0-52.0) 12/03/22 12:30 MCV 96.3 fl (80-94) H 12/03/22 12:30 MCH 32.9 pg (28.0-34.0) 12/03/22 12:30 MCHC 34.2 g/dL (30.0-36.0) 12/03/22 12:30 RDW 12.9 % (12.1-15.1) 12/03/22 12:30 Plt Count 216 10^3/cmm (130-400) 12/03/22 12:30 MPV 11.3 fL (7.4-10.4) H 12/03/22 12:30 Neut % (Auto) 62.7 % 12/03/22 12:30 Lymph % (Auto) 23.6 % 12/03/22 12:30 [place] % (Auto) 10.4 % 12/03/22 12:30 Eos % (Auto) 2.4 % 12/03/22 12:30 Baso % (Auto) 0.7 % 12/03/22 12:30 Neut # (Auto) 5.16 10^3/uL (1.8-7.7) 12/03/22 12:30 Lymph # (Auto) 2.0 10^3/uL (0.8-4.8) 12/03/22 12:30 [place] # (Auto) 0.9 10^3/uL (0.2-0.9) 12/03/22 12:30 Eos # (Auto) 0.2 10^3/uL (0.0-0.8) 12/03/22 12:30 Baso # (Auto) 0.1 10^3/uL (0.0-0.1) 12/03/22 12:30 Nucleated RBC % (auto) 0 % 12/03/22 12: Nucleated RBCs # 0.0 /100WBC 12/03/22 12:30 Sodium 139 mmol/L (136-145) 12/03/22 12:30 Potassium 4.4 mmol/L (3.5-5.1) 12/03/22 12:30 Chloride 101 mmol/L (98-107) 12/03/22 12:30 Carbon Dioxide 25 mmol/L (22-29) 12/03/22 12:30 Anion Gap 17.4 (5-19) 12/03/22 12:30 BUN 24 mg/dL (8-23) H 12/03/22 12:30 Creatinine 1.1 mg/dL (0.7-1.2) 12/03/22 12:30 GFR Calculation 67.0 mL/min (90-130) L 12/03/22 12:30 Glucose 122 mg/dL (65-115) H 12/03/22 12:30 Calculated Osmolality 293 mOsm/kg (285-295) 12/03/22 12:30 Calcium 9.2 mg/dL (8.5-10.5) 12/03/22 12:30 Total Bilirubin 0.5 mg/dL (0.15-1.2) 12/03/22 12:30 AST 20 U/L (0-40) 12/03/22 12:30 ALT 26 U/L (0-41) 12/03/22 12:30 Alkaline Phosphatase 64 U/L (40-130) 12/03/22 12:30 Total Protein 6.7 g/dL (6.6-8.7) 12/03/22 12:30 Albumin 4.2 g/dL (3.5-5.2) 12/03/22 12:30 Globulin 2.5 g/dL (1.3-4.6) 12/03/22 12:30 Discharge Plan Discharge Patient Disposition: Home Clinical Impression: Diverticulitis large intestine Condition: Stable Prescriptions: New ciprofloxacin HCl 500 mg tablet 500 mg PO BID Qty: 20 0RF metronidazole 500 mg tablet 500 mg PO BID 10 Days Qty: 20 0RF No Action aspirin [Adult Low Dose Aspirin] 81 mg tablet,delayed release (DR/EC) 81 mg PO QAM vitamin B complex [B Complex-Vitamin B12] Tablet 1 tab PO QAM ascorbic acid (vitamin C) 1,000 mg tablet 1 gm PO QAM torsemide 20 mg tablet 30 mg PO BID Hold Instructions: Resume on 06/27/22. Entresto 49-51 mg tablet 1 tab PO BID carvedilol 12.5 mg tablet 12.5 mg PO BID Qty: 180 3RF atorvastatin 20 mg tablet 20 mg PO BEDTIME Qty: 90 3RF trazodone 100 mg tablet 100 mg PO BEDTIME Qty: 90 3RF allopurinol 100 mg tablet 100 mg PO BID Qty: 60 4RF Xarelto 20 mg tablet 20 mg PO QAM Qty: 90 1RF cholecalciferol (vitamin D3) [Vitamin D3] 50 mcg (2,000 unit) Tablet 50 mcg PO QAM spironolactone 25 mg tablet 12.5 mg PO QAM Hold Instructions: Resume on 06/27/22. alprazolam 0.5 mg tablet 0.5 mg PO BEDTIME PRN (Reason: unknown) Atrovent HFA 17 mcg/actuation HFA aerosol inhaler 2 puff INHALATION QAM Discharge Orders: Discharge ED (Routine); Ordered 12/03/22 Ordered By: Christopher Garnett Referrals: Wilman Larios MD [Primary Care Provider] - Discharge Diet: Clear Liquid Discharge Activity: Increase activity as tolerated Patient Instructions: Opioid Safety, Pain Management Activity Restrictions/Additional Instructions: You were seen today for abdominal pain. CT shows that you have diverticulitis. If you have not had a colonoscopy in the last 5 to 7 years you should follow-up with your primary care doctor and consider having one done at some point in the near future to further evaluate. For the immediate issues recommend you start on Cipro and metronidazole 1 pill twice daily of each for 10 days. Clear liquid diet for 24 to 48 hours. Coding Level of Care Code ED Career Representative for Chg Fwd Exam Comprehensive
[2022-12-03 12:37] VITALS: BP 127/99; PULSE 77; RESP 18; O2SAT 98
[2022-12-03 12:46] LABS: Basophils # 0.1 10^3/uL (0.0-0.1); Basophils % 0.7 %; Eosinophils # 0.2 10^3/uL (0.0-0.8); Eosinophils % 2.4 %; Hematocrit 46.2 % (42.0-52.0); Hemoglobin 15.8 g/dL (11.7-16.6); Lymphocytes % 23.6 %; Mean Corpuscular HGB Conc 34.2 g/dL (30.0-36.0); Mean Corpuscular Hemoglobin 32.9 pg (28.0-34.0); Mean Corpuscular Volume 96.3 fl (80-94); Mean Platelet Volume 11.3 fL (7.4-10.4); Monocytes # 0.9 10^3/uL (0.2-0.9); Monocytes % 10.4 %; Neutrophils # 5.16 10^3/uL (1.8-7.7); Neutrophils % 62.7 %; Nucleated Red Blood Cells % 0 %; Platelet Count 216 10^3/cmm (130-400); Red Cell Distribution Width 12.9 % (12.1-15.1); White Blood Count 8.3 10^3/uL (4.0-10.0)
[2022-12-03] MEDS: ondansetron 2 mg/ML SDV 2 mL 4 MG IVP (12:46)
[2022-12-03] MEDS: sodium chloride 0.9% 1,000 ML 999 ML IV (12:46)
[2022-12-03 13:03] LABS: Alanine Aminotransferase 26 U/L (0-41); Albumin Level 4.2 g/dL (3.5-5.2); Alkaline Phosphatase 64 U/L (40-130); Anion Gap 17.4 (5-19); Aspartate Amino Transferase 20 U/L (0-40); Blood Urea Nitrogen 24 mg/dL (8-23); Calcium 9.2 mg/dL (8.5-10.5); Carbon Dioxide 25 mmol/L (22-29); Chloride 101 mmol/L (98-107); Globulin 2.5 g/dL (1.3-4.6); Glucose 122 mg/dL (65-115); Osmolality Calculated 293 mOsm/kg (285-295); Potassium 4.4 mmol/L (3.5-5.1); Sodium 139 mmol/L (136-145); Total Bilirubin 0.5 mg/dL (0.15-1.2); Total Protein 6.7 g/dL (6.6-8.7)
== END 2022-12-03 14:18 | disposition home or self-care (01) ==
PROVIDERS: Emergency Provider Family Medicine; PCP Internal Medicine
DX: K57.32 Diverticulitis of large intestine without perforation or abscess without bleeding (principal); Z79.82 Long term (current) use of aspirin; J44.9 Chronic obstructive pulmonary disease, unspecified; E78.5 Hyperlipidemia, unspecified; I11.0 Hypertensive heart disease with heart failure; I50.20 Unspecified systolic (congestive) heart failure; Z87.891 Personal history of nicotine dependence
CPT/HCPCS: 74176; 80053; 85025; 96361; 96374; 99285; J2405; J7030

== ENCOUNTER 2022-12-24 08:03 | Observation (INO) | payer MEDICARE, MEDICAID, SELFPAY ==
[2022-12-24] VITALS (7 sets, daily range): BP systolic 97–114; BP diastolic 62–82; PULSE 79–87; RESP 16–20; TEMP 36.3–37.1; O2SAT 94–98; BMI 34.5; BMI 34.7
[2022-12-24 10:03] LABS: Basophils # 0.1 10^3/uL (0.0-0.1); Basophils % 0.5 %; Eosinophils # 0.1 10^3/uL (0.0-0.8); Eosinophils % 1.1 %; Hematocrit 45.7 % (42.0-52.0); Hemoglobin 15.4 g/dL (11.7-16.6); Lymphocytes # 1.9 10^3/uL (0.8-4.8); Lymphocytes % 15.4 %; Mean Corpuscular HGB Conc 33.7 g/dL (30.0-36.0); Mean Corpuscular Hemoglobin 32.6 pg (28.0-34.0); Mean Corpuscular Volume 96.6 fl (80-94); Mean Platelet Volume 11.5 fL (7.4-10.4); Monocytes # 1.4 10^3/uL (0.2-0.9); Monocytes % 11.5 %; Neutrophils # 8.75 10^3/uL (1.8-7.7); Neutrophils % 71.3 %; Nucleated Red Blood Cells % 0 %; Platelet Count 213 10^3/cmm (130-400); Red Blood Count 4.73 10^6/uL (4.1-5.3); Red Cell Distribution Width 13.2 % (12.1-15.1); White Blood Count 12.3 10^3/uL (4.0-10.0)
[2022-12-24 10:18] LABS: Alanine Aminotransferase 19 U/L (0-41); Albumin Level 3.8 g/dL (3.5-5.2); Alkaline Phosphatase 55 U/L (40-130); Aspartate Amino Transferase 20 U/L (0-40); Blood Urea Nitrogen 23 mg/dL (8-23); Carbon Dioxide 28 mmol/L (22-29); Chloride 98 mmol/L (98-107); Globulin 2.8 g/dL (1.3-4.6); Glomerular Filtration Rate 74.8 mL/min (90-130); Glucose 141 mg/dL (65-115); Osmolality Calculated 290 mOsm/kg (285-295); Sodium 137 mmol/L (136-145); Total Bilirubin 0.7 mg/dL (0.15-1.2); Total Protein 6.6 g/dL (6.6-8.7)
[2022-12-24 10:20] LABS: Anion Gap 15.5 (5-19); Potassium 4.5 mmol/L (3.5-5.1)
[2022-12-24] MEDS: morphine 4 mg/mL SDV 1 mL 2 MG IVP ×3 (11:11→19:45)
[2022-12-24] MEDS: ondansetron 2 mg/ML SDV 2 mL 4 MG IVP (11:11)
--- NOTE | 2022-12-24 11:25 | CT_ITS ---
WS: [id number] CT ABDOMEN AND PELVIS WITH CONTRAST HISTORY: lower abdominal pain with hx diverticulitis TECHNIQUE: Imaging performed of the abdomen and pelvis with IV contrast. Single phase imaging of the abdomen. Coronal and sagittal reformats are submitted. All CT scans at [facility] use at [facility] [address] one of these dose optimization techniques: automated exposure control; mA and/or kV adjustment per patient size (includes targeted exams where dose is matched to clinical indication); or iterative re construction. IV CONTRAST: Omnipaque 350; 100 mL IV. Oral contrast: No DLP: 1246.15 mGy.cm COMPARISON: 12/03/2022 Lower thorax: Slightly spiculated nodule measuring 7 mm reidentified in the lingula. Very nonspecific . Follow-up recommended as previously described. Normal size heart. Small hiatal hernia. Liver/biliary system: Liver is normal size. There are multiple low-attenuation well-circumscribed mas ses with cysts. The largest is in the LEFT lobe of the liver measuring 5.9 cm. No bile duct dilatatio n or mass. Normal portal vein. Gallbladder: Normal. No gallstones or wall thickening. No pericholecystic fluid. Pancreas: Normal size pancreas and pancreatic duct. No adjacent inflammation. Spleen: Normal size spleen. No mass or infarct. Adrenal glands: Very small bilateral adrenal nodules. Statistically these are most likely adenomas. S table since 03/03/2020. Right kidney: Numerous renal cysts. Hyperdense mass in the lower pole measures 3.1 x 2.3 cm. Left kidney: Numerous renal cysts. Aorta: Mild atherosclerosis with no aneurysm. Lymphadenopathy: None. Free fluid: None. GI tract: Nondistended stomach. No small bowel obstruction or wall thickening. Numerous diverticula i n the descending and sigmoid colon. Progression of sigmoid diverticulitis since 12/03/2022. Increasing inflammatory changes surrounding the sigmoid with wall thickening and narrowing of the lumen. No abs cess or drainable collection. Abdominal wall: Unremarkable abdominal wall. No hernia. Pelvis: No free fluid or adenopathy within the pelvis. Bones: Degenerative disc disease and desiccation at L5-S1. CT/CT abdomen pelvis w con* [id number] IMPRESSION: 1. Progression of acute moderate to severe sigmoid diverticulitis since 023. Inflammatory changes surrounding the sigmoid extend medially. Findings are consistent with a contained perforation from diverticulitis. No abscess at thi s time. There is narrowing of the lumen and circumferential wall thickening of the sigmoid. 2. Hepatic and renal cysts. 3. No change in the adrenal nodules which are probably adenomas.
--- NOTE | 2022-12-24 12:08 | W.ED.ABDPA2 ---
Documented by User: SHOBHA Mendoza-Floyd 12/24/22 19:08 HPI - Abdominal Pain General: Chief Complaint: Abdominal Pain Stated Complaint: abd pain Time Seen by Provider: 12/24/22 08:10 History of Present Illness: Is in for pain in his lower abdomen. He reports that starting last night he started developing significant pain in his lower abdomen and he had a difficult time sleeping or finding a position of comfort. He reports that any jarring causes his pain to worsen. He reports that he has a history of diverticulitis. He reports that he suspects that is what is going on. He was recently treated at the end of November for diverticulitis he completed the antibiotics and states that all was well until last night. He reports that he does have some blood in his stools bright red bleeding occasionally but states that the antibiotics gave him diarrhea which flared up his hemorrhoids. He reports some nausea without any vomiting. He denies fever or chills. He reports his pain is an 8 on a 0-to-10 scale Associated Symptoms: Reports nausea; Denies chills, dysuria, fever(s), syncope and vomiting Review of Systems Const: Denies: fever(s), chills or body aches Eyes: Denies: change in vision or blurry vision Card: Reports: other (Reports history of CHF with diuretic medication taken daily); Denies: chest pain, palpitations, irregular heart rhythm, lightheadedness or syncope Resp: Denies: dyspnea, productive cough or non-productive cough GI: Reports: abdominal pain and nausea; Denies: vomiting : Denies: flank pain, dysuria, urinary frequency, urinary urgency or urinary hesitancy Musc: Denies: neck pain or back pain Neuro: Denies: headache(s), numbness in extremities or weakness in extremities PFS ED PFSH: Medical History Atrial fibrillation s/p hybrid Maze (VATS) and atrial fibrillation ablation in Jun 2017 Cardiomyopathy COPD (chronic obstructive pulmonary disease) Dehydration Dyslipidemia HTN (hypertension) Hypotensive episode Systolic CHF Surgical History AICD (automatic cardioverter/defibrillator) present H/O cardiac radiofrequency ablation H/O circumcision H/O colonoscopy 3 yrs ago, H/O heart surgery Maze H/O removal of cyst thyroid, testicle H/O umbilical hernia repair Family History Father Myocardial infarct Mother Aneurysm Grandmother Cancer liver Other CAD (coronary artery disease) Denies family history of Diabetes Anesthesia complication Bleeding disorder Social History Smoking and tobacco status: former smoker Quit status (tobacco): has quit using tobacco Alcohol intake: current Alcohol intake frequency: holidays/special occasions only Household members: family Marital status: Single Current occupational status: retired Physical Exam Const: COMMON NORMALS: no acute distress, patient oriented x3 and alert GENERAL APPEARANCE: cooperative ORIENTATION/CONSCIOUSNESS: Yes awake, Yes oriented to person, Yes oriented to place and Yes oriented to time Resp: COMMON NORMALS: normal respiratory effort, No retractions, No use of accessory muscles and clear to auscultation bilaterally EFFORT & INSPECTION: Yes symmetric chest movement AUSCULTATION: clear to auscultation bilaterally Cardio: COMMON NORMALS: regular rate and regular rhythm RATE: regular rate RHYTHM: regular rhythm OTHER: AICD present palpated over chest wall GI: COMMON NORMALS: Normal to inspection, nondistended, normoactive bowel sounds present and Soft to palpation INSPECTION: Yes normal to inspection PALPATION: Yes Soft to palpation, Yes Tenderness to palpation present (GI) Details: LLQ and RLQ and Yes Guarding due to palpation present (GI) in the LLQ : COMMON NORMALS: Yes no CVA tenderness BLADDER/KIDNEY EXAM: Yes no CVA tenderness Back/Pelvis: COMMON NORMALS: no CVA tenderness Neuro: COMMON NORMALS: patient oriented x3 SENSORIUM/ORIENTATION: Yes alert, Yes oriented to person, Yes oriented to place and Yes oriented to time Psych: COMMON NORMALS: cooperative Course ED course: 1325?CT shows contained perforation and diverticulitis. Discussed the case with Dr. Barger. He agrees that patient likely needs inpatient admission and treatment with IV antibiotics. Paged the hospitalist to discuss inpatient admission [id number]?spoke with hospitalist regarding patient and she is agreeable to admit. She wants general surgery to evaluate patient as well/consult 1404?spoke with Dr. Reese from general surgery. He is agreeable with Zosyn and wants normal saline at 125 an hour started. Keep patient n.p.o. Vital Signs: Vital signs: Vital Signs Temperature 97.9 F 12/27/22 12:00 Pulse Rate 92 12/27/22 12:00 Respiratory Rate 18 12/27/22 12:00 Blood Pressure 135/75 12/27/22 12:00 Pulse Oximetry 94 12/27/22 12:00 Oxygen Delivery Me thod 12/27/22 12:00 MDM - Abdominal Pain Medical Decision Making Patient is a 67-year-old male who is in today for evaluation of abdominal pain. He reports that he has diverticulitis was recently treated for that a couple of weeks ago. He reports that he was doing better after the antibiotics however last night he developed sudden lower quadrant abdominal pain. White blood cell count is elevated. CT shows inflammatory changes surrounding the sigmoid extending medially findings are consistent with a contained perforation from diverticulitis no abscess at this time there is narrowing of the lumen and circumferential wall thickening of the sigmoid. I advised patient of the findings and that he would likely need admission to the hospital. He is agreeable with plan of care. He states that he is not surprised I did discuss this case with , and he agrees that the patient will likely need admission. I called and discussed with the hospitalist and consulted with general surgeon. Patient will be admitted to hospitalist service. Lab Data 12/24/22 09:35 12/24/22 09:35 Labs/Radiology: Radiology Impressions Abdomen/Pelvis CT 12/24/22 11:25 IMPRESSION: 1. Progression of acute moderate to severe sigmoid diverticulitis since 12/03/2022. Inflammatory changes surrounding the sigmoid extend medially. Findings are consistent with a contained perforation from diverticulitis. No abscess at this time. There is narrowing of the lumen and circumferential wall thickening of the sigmoid. 2. Hepatic and renal cysts. 3. No change in the adrenal nodules which are probably adenomas. Laboratory Results WBC 12.3 10^3/uL (4.0-10.0) H 12/24/22 09:35 RBC 4.73 10^6/uL (4.1-5.3) 12/24/22 09:35 Hgb 15.4 g/dL (11.7-16.6) 12/24/22 09:35 Hct 45.7 % (42.0-52.0) 12/24/22 09:35 MCV 96.6 fl (80-94) H 12/24/22 09:35 MCH 32.6 pg (28.0-34.0) 12/24/22 09:35 MCHC 33.7 g/dL (30.0-36.0) 12/24/22 09:35 RDW 13.2 % (12.1-15.1) 12/24/22 09:35 Plt Count 213 10^3/cmm (130-400) 12/24/22 09:35 MPV 11.5 fL (7.4-10.4) H 12/24/22 09:35 Neut % (Auto) 71.3 % 12/24/22 09:35 Lymph % (Auto) 15.4 % 12/24/22 09:35 [place] % (Auto) 11.5 % 12/24/22 09:35 Eos % (Auto) 1.1 % 12/24/22 09:35 Baso % (Auto) 0.5 % 12/24/22 09:35 Neut # (Auto) 8.75 10^3/uL (1.8-7.7) H 12/24/22 09:35 Lymph # (Auto) 1.9 10^3/uL (0.8-4.8) 12/24/22 09:35 [place] # (Auto) 1.4 10^3/uL (0.2-0.9) H 12/24/22 09:35 Eos # (Auto) 0.1 10^3/uL (0.0-0.8) 12/24/22 09:35 Baso # (Auto) 0.1 10^3/uL (0.0-0.1) 12/24/22 09:35 Nucleated RBC % (auto) 0 % 12/24/22 09:35 Nucleated RBCs # 0.0 /100WBC 12/24/22 09:35 Sodium 137 mmol/L (136-145) 12/24/22 09:35 Potassium 4.5 mmol/L (3.5-5.1) 12/24/22 09:35 Chloride 98 mmol/L (98-107) 12/24/22 09:35 Carbon Dioxide 28 mmol/L (22-29) 12/24/22 09:35 Anion Gap 15.5 (5-19) 12/24/22 09:35 BUN 23 mg/dL (8-23) 12/24/22 09:35 Creatinine 1.0 mg/dL (0.7-1.2) 12/24/22 09:35 GFR Calculation 74.8 mL/min (90-130) L 12/24/22 09:35 Glucose 141 mg/dL (65-115) H 12/24/22 09:35 Calculated Osmolality 290 mOsm/kg (285-295) 12/24/22 09:35 Lactate 1.5 mmol/L (0.5-2.2) 12/24/22 09:35 Calcium 9.0 mg/dL (8.5-10.5) 12/24/22 09:35 Total Bilirubin 0.7 mg/dL (0.15-1.2) 12/24/22 09:35 AST 20 U/L (0-40) 12/24/22 09:35 ALT 19 U/L (0-41) 12/24/22 09:35 Alkaline Phosphatase 55 U/L (40-130) 12/24/22 09:35 Total Protein 6.6 g/dL (6.6-8.7) 12/24/22 09:35 Albumin 3.8 g/dL (3.5-5.2) 12/24/22 09:35 Globulin 2.8 g/dL (1.3-4.6) 12/24/22 09:35 Procalcitonin 0.04 ng/mL (0-0.5) 12/24/22 09:58 Urine Color Yellow (Yellow) 12/24/22 12:19 Urine Appearance Clear (CLEAR) 12/24/22 12:19 Urine pH 7 (5-7) 12/24/22 12:19 Ur Specific [place] 1.010 (1.005-1.030) 12/24/22 12:19 Urine Protein Neg (Negative) 12/24/22 12:19 Urine Glucose (UA) Norm (Normal) 12/24/22 12:19 Urine Ketones Negative (Negative) 12/24/22 12:19 Urine Blood Neg (Negative) 12/24/22 12:19 Urine Nitrate Negative (Negative) 12/24/22 12:19 Urine Bilirubin Neg (Negative) 12/24/22 12:19 Urine Urobilinogen Norm mg/dL (Negative) 12/24/22 12:19 Ur Leukocyte Esterase Negative (Negative) 12/24/22 12:19 Discharge Plan Discharge Patient Disposition: Admitted As Inpatient Admit Provider: Ilene Tristan Clinical Impression: Diverticulitis of colon with perforation Condition: Stable Discharge Diet: Cardiac Discharge Activity: Resume usual activity Coding Level of Care Code ED Continuous Process Coffee Roaster for Chg Fwd Documented by User: Jamel Barger MD 01/03/23 18:28 HPI - Abdominal Pain General: Chief Complaint: Abdominal Pain Stated Complaint: abd pain Time Seen by Provider: 12/24/22 08:10 PFSH ED PFSH: Medical History Atrial fibrillation s/p hybrid Maze (VATS) and atrial fibrillation ablation in Jun 2017 Cardiomyopathy COPD (chronic obstructive pulmonary disease) Dehydration Dyslipidemia HTN (hypertension) Hypotensive episode Systolic CHF Surgical History AICD (automatic cardioverter/defibrillator) present H/O cardiac radiofrequency ablation H/O circumcision H/O colonoscopy 3 yrs ago, H/O heart surgery Maze H/O removal of cyst thyroid, testicle H/O umbilical hernia repair Family History Father Myocardial infarct Mother Aneurysm Grandmother Cancer liver Other CAD (coronary artery disease) Denies family history of Diabetes Anesthesia complication Bleeding disorder Social History Smoking and tobacco status: former smoker Quit status (tobacco): has quit using tobacco Alcohol intake: current Alcohol intake frequency: holidays/special occasions only Household members: family Marital status: Single Current occupational status: retired Course Vital Signs: Vital signs: Vital Signs Temperature 97.9 F 12/27/22 12:00 Pulse Rate 92 12/27/22 12:00 Respiratory Rate 18 12/27/22 12:00 Blood Pressure 135/75 12/27/22 12:00 Pulse Oximetry 94 12/27/22 12:00 Oxygen Delivery Me thod 12/27/22 12:00 MDM - Abdominal Pain Medical Decision Making Patient is a 67-year-old male who is in today for evaluation of abdominal pain. He reports that he has diverticulitis was recently treated for that a couple of weeks ago. He reports that he was doing better after the antibiotics however last night he developed sudden lower quadrant abdominal pain. White blood cell count is elevated. CT shows inflammatory changes surrounding the sigmoid extending medially findings are consistent with a contained perforation from diverticulitis no abscess at this time there is narrowing of the lumen and circumferential wall thickening of the sigmoid. I advised patient of the findings and that he would likely need admission to the hospital. He is agreeable with plan of care. He states that he is not surprised I did discuss this case with , and he agrees that the patient will likely need admission. I called and discussed with the hospitalist and consulted with general surgeon. Patient will be admitted to hospitalist service. I discussed this case with EDGARD Mendoza. I reviewed documentation, labs, imaging. Jamel Barger MD Emergency Medicine Lab Data 12/24/22 09:35 12/24/22 09:35 Labs/Radiology: Radiology Impressions Abdomen/Pelvis CT 12/24/22 11:25 IMPRESSION: 1. Progression of acute moderate to severe sigmoid diverticulitis since 12/03/2022. Inflammatory changes surrounding the sigmoid extend medially. Findings are consistent with a contained perforation from diverticulitis. No abscess at this time. There is narrowing of the lumen and circumferential wall thickening of the sigmoid. 2. Hepatic and renal cysts. 3. No change in the adrenal nodules which are probably adenomas. Laboratory Results WBC 12.3 10^3/uL (4.0-10.0) H 12/24/22 09:35 RBC 4.73 10^6/uL (4.1-5.3) 12/24/22 09:35 Hgb 15.4 g/dL (11.7-16.6) 12/24/22 09:35 Hct 45.7 % (42.0-52.0) 12/24/22 09:35 MCV 96.6 fl (80-94) H 12/24/22 09:35 MCH 32.6 pg (28.0-34.0) 12/24/22 09:35 MCHC 33.7 g/dL (30.0-36.0) 12/24/22 09:35 RDW 13.2 % (12.1-15.1) 12/24/22 09:35 Plt Count 213 10^3/cmm (130-400) 12/24/22 09:35 MPV 11.5 fL (7.4-10.4) H 12/24/22 09:35 Neut % (Auto) 71.3 % 12/24/22 09:35 Lymph % (Auto) 15.4 % 12/24/22 09:35 [place] % (Auto) 11.5 % 12/24/22 09:35 Eos % (Auto) 1.1 % 12/24/22 09:35 Baso % (Auto) 0.5 % 12/24/22 09:35 Neut # (Auto) 8.75 10^3/uL (1.8-7.7) H 12/24/22 09:35 Lymph # (Auto) 1.9 10^3/uL (0.8-4.8) 12/24/22 09:35 [place] # (Auto) 1.4 10^3/uL (0.2-0.9) H 12/24/22 09:35 Eos # (Auto) 0.1 10^3/uL (0.0-0.8) 12/24/22 09:35 Baso # (Auto) 0.1 10^3/uL (0.0-0.1) 12/24/22 09:35 Nucleated RBC % (auto) 0 % 12/24/22 09:35 Nucleated RBCs # 0.0 /100WBC 12/24/22 09:35 Sodium 137 mmol/L (136-145) 12/24/22 09:35 Potassium 4.5 mmol/L (3.5-5.1) 12/24/22 09:35 Chloride 98 mmol/L (98-107) 12/24/22 09:35 Carbon Dioxide 28 mmol/L (22-29) 12/24/22 09:35 Anion Gap 15.5 (5-19) 12/24/22 09:35 BUN 23 mg/dL (8-23) 12/24/22 09:35 Creatinine 1.0 mg/dL (0.7-1.2) 12/24/22 09:35 GFR Calculation 74.8 mL/min (90-130) L 12/24/22 09:35 Glucose 141 mg/dL (65-115) H 12/24/22 09:35 Calculated Osmolality 290 mOsm/kg (285-295) 12/24/22 09:35 Lactate 1.5 mmol/L (0.5-2.2) 12/24/22 09:35 Calcium 9.0 mg/dL (8.5-10.5) 12/24/22 09:35 Total Bilirubin 0.7 mg/dL (0.15-1.2) 12/24/22 09:35 AST 20 U/L (0-40) 12/24/22 09:35 ALT 19 U/L (0-41) 12/24/22 09:35 Alkaline Phosphatase 55 U/L (40-130) 12/24/22 09:35 Total Protein 6.6 g/dL (6.6-8.7) 12/24/22 09:35 Albumin 3.8 g/dL (3.5-5.2) 12/24/22 09:35 Globulin 2.8 g/dL (1.3-4.6) 12/24/22 09:35 Procalcitonin 0.04 ng/mL (0-0.5) 12/24/22 09:58 Urine Color Yellow (Yellow) 12/24/22 12:19 Urine Appearance Clear (CLEAR) 12/24/22 12:19 Urine pH 7 (5-7) 12/24/22 12:19 Ur Specific [place] 1.010 (1.005-1.030) 12/24/22 12:19 Urine Protein Neg (Negative) 12/24/22 12:19 Urine Glucose (UA) Norm (Normal) 12/24/22 12:19 Urine Ketones Negative (Negative) 12/24/22 12:19 Urine Blood Neg (Negative) 12/24/22 12:19 Urine Nitrate Negative (Negative) 12/24/22 12:19 Urine Bilirubin Neg (Negative) 12/24/22 12:19 Urine Urobilinogen Norm mg/dL (Negative) 12/24/22 12:19 Ur Leukocyte Esterase Negative (Negative) 12/24/22 12:19 Discharge Plan Discharge Patient Disposition: Admitted As Inpatient Admit Provider: Ilene Tristan Clinical Impression: Diverticulitis of colon with perforation Condition: Stable Discharge Diet: Cardiac Discharge Activity: Resume usual activity Coding Level of Care Code ED Continuous Process Coffee Roaster for Krista Mina
[2022-12-24 12:34] LABS: Add Urine Microscopic? NO; Charge for UA Resulting for Rev
[2022-12-24] MEDS: iohexol 350 mg/mL 500 mL Btl (per mL) IV (12:54)
[2022-12-24 12:56] LABS: Bilirubin Urine Neg (Negative); Blood Urine Neg (Negative); Glucose Urine UA Norm (Normal); Ketones Urine Negative (Negative); Leukocyte Esterase Urine Negative (Negative); Nitrate Urine Negative (Negative); Protein Urine Neg (Negative); Urine Appearance Clear (CLEAR); Urine Color Yellow (Yellow); Urobilinogen Urine Norm (Negative); pH Urine 7 (5-7)
[2022-12-24] MEDS: piperacillin-tazobactam 3.375 GM in sodium chloride 0.9% (plus) 50 ML IV ×2 (13:43→19:32)
[2022-12-24 14:26] LABS: Lactate (Lactic Acid level) 1.5 mmol/L (0.5-2.2)
[2022-12-24 15:53] LABS: Procalcitonin 0.04 ng/mL (0-0.5)
--- NOTE | 2022-12-24 16:16 | P.HP_ITS ---
Providers/Chief Complaint Admitting Physician: Ilene Tristan MD Primary Care Provider: Wilman Larios MD Chief Complaint: abd pain History of Present Illness Yayo Rivera is a 67 year old male who has been dealing with his diverticulitis for last 2 to 3 weeks, he was seen in the ER on November as well, he has finished 10 days of antibiotics however because of worsening of pain and subjective fevers he decided to come to the hospital for the evaluation. Patient is stating that he gets 1 episode of diverticulitis every year, Dr. Larios did recommend that he should wait before any surgical intervention because of poor EF he has reduce ejection fraction heart failure status post AICD/pacemaker, he has not experienced any chest pain, shortness of breath, nausea, vomiting. Patient has not experienced any emesis, but endorsing nausea he is compliant with medication, does not drink or smoke. Patient has history of IV drug abuse in the past he has quit smoking and alcohol. In the ER he has been diagnosed with diverticulitis with microperforation, Reese has been consulted he has been kept n.p.o. we will hold Xarelto and Entresto, his dose of Xarelto was on December 24 in the morning Review of Systems Const: Reports: fever(s); Denies: chills Eyes: Denies: change in vision ENMT: Denies: throat pain Card: Denies: chest pain Resp: Denies: dyspnea GI: Reports: abdominal pain and nausea : Denies: flank pain Musc: Denies: neck pain Skin/Breast: Denies: rash Neuro: Denies: headache(s) Psych: Denies: anxiety Endo: Denies: polyuria Philippe/Lymph: Denies: easy bruising All/Imm: Denies: urticaria Medications/Allergies Home Medications Medication Instructions Recorded Confirmed Last Taken Type ascorbic acid (vitamin C) 1,000 mg 1 gm PO QAM 11/15/19 12/24/22 12/24/22 History tablet aspirin 81 mg tablet,delayed 81 mg PO QAM 11/15/19 12/24/22 12/24/22 History release (Adult Low Dose Aspirin) vitamin B complex (B 1 tab PO QAM 11/15/19 12/24/22 12/24/22 History Complex-Vitamin B12 tablet) atorvastatin 20 mg tablet 20 mg PO BEDTIME #90 tabs 01/05/22 12/24/22 12/23/22 Rx trazodone 100 mg tablet 100 mg PO BEDTIME #90 tabs 01/21/22 12/24/22 12/23/22 Rx carvedilol 12.5 mg tablet 12.5 mg PO BID #180 tabs 06/12/22 12/24/22 12/24/22 Rx alprazolam 0.5 mg tablet 0.5 mg PO BEDTIME PRN Anxiety 06/19/22 12/24/22 06/18/22 History cholecalciferol (vitamin D3) 50 50 mcg PO QAM 06/19/22 12/24/22 12/24/22 History mcg (2,000 unit) tablet (Vitamin D3) ipratropium bromide 17 2 puff inhalation QAM 06/19/22 12/24/22 12/24/22 History mcg/actuation HFA aerosol inhaler (Atrovent HFA) spironolactone 25 mg tablet 12.5 mg PO QAM 06/19/22 12/24/22 12/24/22 History allopurinol 100 mg tablet 100 mg PO BID #60 tabs 07/20/22 12/24/22 12/23/22 Rx rivaroxaban 20 mg tablet (Xarelto) 20 mg PO QAM #90 tabs 09/23/22 12/24/22 12/24/22 Rx sacubitril 49 mg-valsartan 51 mg 1 tab PO BID 10/12/22 12/24/22 12/24/22 History tablet (Entresto) potassium 99 mg tablet 99 mg PO DAILY 12/24/22 12/24/22 12/24/22 History torsemide 20 mg tablet 30 mg PO BID 12/24/22 12/24/22 12/24/22 History Allergies Allergy/AdvReac Type Severity Reaction Status Date / Time diltiazem [From Cardizem] Allergy Unknown ADR/ALGY-Hy Verified 12/24/22 11:36 potension metolazone AdvReac Unknown Unknown Uncoded 10/12/22 13:48 PFSH Acute PFSH: Medical History Atrial fibrillation s/p hybrid Maze (VATS) and atrial fibrillation ablation in Jun 2017 Cardiomyopathy COPD (chronic obstructive pulmonary disease) Dehydration Dyslipidemia HTN (hypertension) Hypotensive episode Systolic CHF Surgical History AICD (automatic cardioverter/defibrillator) present H/O cardiac radiofrequency ablation H/O circumcision H/O colonoscopy 3 yrs ago, H/O heart surgery Maze H/O removal of cyst thyroid, testicle H/O umbilical hernia repair Family History Father Myocardial infarct Mother Aneurysm Grandmother Cancer liver Other CAD (coronary artery disease) Denies family history of Diabetes Anesthesia complication Bleeding disorder Social History Smoking and tobacco status: former smoker Quit status (tobacco): has quit using tobacco Alcohol intake: current Alcohol intake frequency: holidays/special occasions o nly Household members: family Marital status: Single Current occupational status: retired History of recent travel: No Vitals/I&O/Wt Last Vital Signs Temp 98.1 F 12/24/22 08:18 Pulse 79 12/24/22 15:30 Resp 18 12/24/22 15:30 BP 99/62 12/24/22 15:30 Pulse Ox 98 12/24/22 15:30 O2 Del Method 12/24/22 11:15 Weight last 48 hrs Weight 122.198 kg Physical Exam Narrative: Patient is laying supine No active distress Abdomen is soft, distended, tender on deep palpation hypogastric and left lower quadrant No active emesis Chest pain-free Blood pressure slightly on the lower side Awake and alert Pleasant and cooperative Nonfocal neuro exam No active CHF exacerbation signs Lower extremity no edema Data 12/24/22 09:35 12/24/22 09:35 A&P Assessment and plan (1) Diverticulitis of colon with perforation: (2) History of colonic polyps: (3) AICD (automatic cardioverter/defibrillator) present: (4) PVC (premature ventricular contraction): (5) Diverticulitis large intestine: (6) COPD (chronic obstructive pulmonary disease): Qualifiers: COPD type: emphysema Emphysema type: panlobular Qualified Code(s): J43.1 - Panlobular emphysema (7) Atrial fibrillation: Qualifiers: Atrial fibrillation type: paroxysmal Qualified Code(s): I48.0 - Paroxysmal atrial fibrillation Plan Diverticulitis with microabscess N.p.o. Failed outpatient therapy Start IV Zosyn Judicious use of fluids because of reduced ejection fraction heart failure However he is not an active exacerbation He will be considered high risk for any kind of surgical intervention Dr. Reese has been consulted Patient gets 1 episode of radiculitis every year Last dose of Xarelto was today morning No active emesis Complaining of nausea abdominal pain Currently on room air Full code N.p.o. DVT prophylaxis: SCDs History of A-fib not in RVR Status post pacemaker placement for sick sinus syndrome Attestations Medical Necessity Statement*: More than 2 midnights anticipated Coding Level of Care Code 92871 Diagnoses Diverticulitis of colon with perforation K57.20 History of colonic polyps Z86.010 AICD (automatic cardioverter/defibrillator) present Z95.810 PVC (premature ventricular contraction) I49.3 Diverticulitis large intestine K57.32 COPD (chronic obstructive pulmonary disease) J43.1 COPD type: emphysema Emphysema type: panlobular Atrial fibrillation I48.0 Atrial fibrillation type: paroxysmal
[2022-12-24] MEDS: sodium chloride 0.9% 1,000 ML 60 ML IV (16:30)
[2022-12-24 18:03] LABS: Thyroid Stimulating Hormone 0.61 uIU/mL (0.27-4.20)
[2022-12-24] MEDS: allopurinol 100 mg Tablet PO (18:18)
[2022-12-24] MEDS: carvedilol 12.5 mg Tablet PO (20:32)
[2022-12-25] VITALS (9 sets, daily range): BP systolic 94–111; BP diastolic 62–76; PULSE 77–92; RESP 16–20; TEMP 36.3–38.2; O2SAT 92–94
[2022-12-25] MEDS: morphine 4 mg/mL SDV 1 mL 2 MG IVP ×3 (03:10→19:52)
[2022-12-25] MEDS: piperacillin-tazobactam 3.375 GM in sodium chloride 0.9% (plus) 50 ML IV ×3 (04:00→20:26)
[2022-12-25 05:23] LABS: Basophils # 0.1 10^3/uL (0.0-0.1); Basophils % 0.4 %; Eosinophils # 0.1 10^3/uL (0.0-0.8); Eosinophils % 0.5 %; Hematocrit 43.7 % (42.0-52.0); Hemoglobin 14.5 g/dL (11.7-16.6); Lymphocytes # 1.4 10^3/uL (0.8-4.8); Lymphocytes % 10.7 %; Mean Corpuscular HGB Conc 33.2 g/dL (30.0-36.0); Mean Corpuscular Hemoglobin 32.3 pg (28.0-34.0); Mean Corpuscular Volume 97.3 fl (80-94); Mean Platelet Volume 11.7 fL (7.4-10.4); Monocytes # 1.3 10^3/uL (0.2-0.9); Monocytes % 9.9 %; Neutrophils % 78.2 %; Nucleated Red Blood Cells % 0 %; Platelet Count 182 10^3/cmm (130-400); Red Blood Count 4.49 10^6/uL (4.1-5.3); Red Cell Distribution Width 13.4 % (12.1-15.1)
[2022-12-25 05:48] LABS: Alanine Aminotransferase 14 U/L (0-41); Albumin Level 3.4 g/dL (3.5-5.2); Alkaline Phosphatase 59 U/L (40-130); Anion Gap 15.2 (5-19); Aspartate Amino Transferase 13 U/L (0-40); Blood Urea Nitrogen 17 mg/dL (8-23); Calcium 8.7 mg/dL (8.5-10.5); Carbon Dioxide 27 mmol/L (22-29); Chloride 104 mmol/L (98-107); Globulin 2.7 g/dL (1.3-4.6); Glucose 128 mg/dL (65-115); Osmolality Calculated 297 mOsm/kg (285-295); Potassium 4.2 mmol/L (3.5-5.1); Sodium 142 mmol/L (136-145); Total Bilirubin 1.3 mg/dL (0.15-1.2); Total Protein 6.1 g/dL (6.6-8.7)
[2022-12-25] MEDS: aspirin 81 mg EC Tablet PO (05:50)
[2022-12-25] MEDS: sodium chloride 0.9% 1,000 ML 60 ML IV (09:52)
[2022-12-25] MEDS: allopurinol 100 mg Tablet PO ×2 (09:53→17:30)
--- NOTE | 2022-12-25 13:14 | PM.PN ---
Subjective Subjective: seen today no acute events overnight Vitals/I&O/Wt Last Vital Signs Temp 97.7 F 12/25/22 10:53 Pulse 85 12/25/22 10:53 Resp 16 12/25/22 11:37 BP 103/69 12/25/22 10:53 Pulse Ox 92 12/25/22 10:53 O2 Del Method 12/24/22 16:09 12/24/22 12/25/22 12/25/22 22:59 06:59 14:59 Intake Total 50 / 50 170 / 220 1050 / 1050 Output Total 2 / 2 Balance 48 / 48 170 / 218 1050 / 1050 Weight last 48 hrs Weight 122.47 kg Weight 122.198 kg Physical Exam Narrative: Patient is laying supine No active distress Abdomen is soft, distended, tender on deep palpation hypogastric and left lower quadrant. No active emesis Awake and alert Pleasant and cooperative Nonfocal neuro exam No active CHF exacerbation signs Lower extremity no edema Data 12/25/22 04:56 12/25/22 04:56 Micro: Microbiology 12/24/22 16:38 Blood Culture - Preliminary Blood SPECIMEN COLLECTED 12/24/22 16:38 Blood Culture - Preliminary Blood SPECIMEN COLLECTED A&P Assessment and plan (1) Diverticulitis of colon with perforation: (2) History of colonic polyps: (3) AICD (automatic cardioverter/defibrillator) present: (4) PVC (premature ventricular contraction): (5) Diverticulitis large intestine: (6) COPD (chronic obstructive pulmonary disease): Qualifiers: COPD type: emphysema Emphysema type: panlobular Qualified Code(s): J43.1 - Panlobular emphysema (7) Atrial fibrillation: Qualifiers: Atrial fibrillation type: paroxysmal Qualified Code(s): I48.0 - Paroxysmal atrial fibrillation Plan #Diverticulitis with microabscess, contained perforation #Atrial fibrillation status post ablation and hybrid maze #History of cardiomyopathy #History of systolic congestive heart failure chronic #Status post AICD placement #Hypertension #Dyslipidemia #COPD ? Continue to keep patient n.p.o. He has failed outpatient therapy ? Continue on IV Zosyn at this time. ? We will continue on 60 cc normal saline per hour due to patient's low EF ? Patient will be high risk for any kind of surgical intervention medically. ? Xarelto on hold at this point in case of procedures planned. ? Has been on the hypotensive side. We will hold Entresto at this time as well ? Await recommendations from general surgery. Dr. Reese has been consulted from the ER. - Sherwin q4h PRN Full code DVT prophylaxis: SCDs Diet: N.p.o. at this time. Attestations Medical Necessity Statement*: Continue inpatient hospitalization for management of divirticulitis. Other Coding Information Focused coding review requested Diagnoses Diverticulitis of colon with perforation K57.20 History of colonic polyps Z86.010 AICD (automatic cardioverter/defibrillator) present Z95.810 PVC (premature ventricular contraction) I49.3 Diverticulitis large intestine K57.32 COPD (chronic obstructive pulmonary disease) J43.1 COPD type: emphysema Emphysema type: panlobular Atrial fibrillation I48.0 Atrial fibrillation type: paroxysmal
--- NOTE | 2022-12-25 17:46 | PM.CONSULT ---
Providers/Reason For Consult Consulting Physician/Specialty*: Dr. Jasmeet Reese, DO/General surgery Reason for Consult*: Acute diverticulitis with microperforation Attending Physician: Ilene Tristan MD Primary Care Provider: Wilman Larios MD History of Present Illness History of Present Illness Yayo Rivera is a 67 year old male, who has a history of numerous episodes of diverticulitis, presented to the emergency room with a 2-day history of left lower quadrant abdominal pain, nausea and diarrhea. He reports that his pain is sharp and constant. Palpation makes pain worse. Nothing seems to make the pain better. He denies any emesis, hematochezia and/or melena. CT shows acute sigmoid diverticulitis with contained microperforation. His last colonoscopy was about 1 year ago. Review of Systems General: Reports: 10 or more systems reviewed and unremarkable except in HPI and below Medications/Allergies Home Medications Medication Instructions Recorded Confirmed Last Taken Type ascorbic acid (vitamin C) 1,000 mg 1 gm PO QAM 11/15/19 12/24/22 12/24/22 History tablet aspirin 81 mg tablet,delayed 81 mg PO QAM 11/15/19 12/24/22 12/24/22 History release (Adult Low Dose Aspirin) vitamin B complex (B 1 tab PO QAM 11/15/19 12/24/22 12/24/22 History Complex-Vitamin B12 tablet) atorvastatin 20 mg tablet 20 mg PO BEDTIME #90 tabs 01/05/22 12/24/22 12/23/22 Rx trazodone 100 mg tablet 100 mg PO BEDTIME #90 tabs 01/21/22 12/24/22 12/23/22 Rx carvedilol 12.5 mg tablet 12.5 mg PO BID #180 tabs 06/12/22 12/24/22 12/24/22 Rx alprazolam 0.5 mg tablet 0.5 mg PO BEDTIME PRN Anxiety 06/19/22 12/24/22 06/18/22 History cholecalciferol (vitamin D3) 50 50 mcg PO QAM 06/19/22 12/24/22 12/24/22 History mcg (2,000 unit) tablet (Vitamin D3) ipratropium bromide 17 2 puff inhalation QAM 06/19/22 12/24/22 12/24/22 History mcg/actuation HFA aerosol inhaler (Atrovent HFA) spironolactone 25 mg tablet 12.5 mg PO QAM 06/19/22 12/24/22 12/24/22 History allopurinol 100 mg tablet 100 mg PO BID #60 tabs 07/20/22 12/24/22 12/23/22 Rx rivaroxaban 20 mg tablet (Xarelto) 20 mg PO QAM #90 tabs 09/23/22 12/24/22 12/24/22 Rx sacubitril 49 mg-valsartan 51 mg 1 tab PO BID 10/12/22 12/24/22 12/24/22 History tablet (Entresto) potassium 99 mg tablet 99 mg PO DAILY 12/24/22 12/24/22 12/24/22 History torsemide 20 mg tablet 30 mg PO BID 12/24/22 12/24/22 12/24/22 History Allergies Allergy/AdvReac Type Severity Reaction Status Date / Time diltiazem [From Cardizem] Allergy Unknown ADR/ALGY-Hy Verified 12/24/22 11:36 potension metolazone AdvReac Unknown Unknown Uncoded 10/12/22 13:48 Current Medications Generic Name Dose Route Start Last Admin Trade Name Freq PRN Reason Stop Dose Admin Allopurinol 100 mg 12/24/22 18:00 12/26/22 07:57 Allopurinol 100 Mg Tablet PO 100 mg BID MORA Administration Aspirin 81 mg 12/25/22 06:00 12/26/22 05:16 Aspirin 81 Mg Ec Tablet PO 81 mg QAM MORA Administration Carvedilol 12.5 mg 12/24/22 21:00 12/26/22 07:57 Carvedilol 12.5 Mg Tablet PO 12.5 mg BID@0900,2100 MORA Administration Sodium Chloride 1,000 mls @ 60 mls/hr 12/24/22 14:15 12/26/22 01:42 Sodium Chloride 0.9% IV 60 mls/hr .[id number] MORA Administration Piperacillin Sod/Tazobactam 50 mls @ 12.5 mls/hr 12/24/22 19:30 12/26/22 07:53 Sod 3.375 gm/ Sodium Chloride IV Infused Q8H MORA Infusion Protocol As Directed Morphine Sulfate 2 mg 12/24/22 16:28 12/25/22 19:52 Morphine 4 Mg/Ml Sdv 1 Ml IVP 2 mg Q4H PRN Administration SEVERE PAIN Non-Formulary Medication 1 tab 12/25/22 06:00 12/26/22 05:15 Vitamin B Complex [B Complex-Vitamin B12] PO Not Given QAM MORA PFSH Acute PFSH: Medical History Atrial fibrillation s/p hybrid Maze (VATS) and atrial fibrillation ablation in Jun 2017 Cardiomyopathy COPD (chronic obstructive pulmonary disease) Dehydration Dyslipidemia HTN (hypertension) Hypotensive episode Systolic CHF Surgical History AICD (automatic cardioverter/defibrillator) present H/O cardiac radiofrequency ablation H/O circumcision H/O colonoscopy 3 yrs ago, H/O heart surgery Maze H/O removal of cyst thyroid, testicle H/O umbilical hernia repair Family History Father Myocardial infarct Mother Aneurysm Grandmother Cancer liver Other CAD (coronary artery disease) Denies family history of Diabetes Anesthesia complication Bleeding disorder Social History Smoking and tobacco status: former smoker Quit status (tobacco): has quit using tobacco Alcohol intake: current Alcohol intake frequency: holidays/special occasions only Household members: family Marital status: Single Current occupational status: retired History of recent travel: No Vitals/I&O/Wt Last Vital Signs Temp 98.4 F 12/26/22 07:14 Pulse 93 12/26/22 07:14 Resp 15 12/26/22 07:14 BP 117/83 12/26/22 07:14 Pulse Ox 94 12/26/22 07:14 O2 Del Method 12/26/22 04:00 12/25/22 12/26/22 12/26/22 22:59 06:59 14:59 Intake Total 530 / 1580 1060 / 2640 50 / 50 Balance 530 / 1580 1060 / 2640 50 / 50 Weight last 48 hrs Weight 270 lb Physical Exam Narrative: General : Patient is well developed , no acute distress, oriented x3 Head : Normal cephalic, a-traumatic. Ears : Pinnae and external canal are normal. Hearing is normal. Eyes : PERRLA, Sclera and injection are normal. No conjunctival discharge. Nose : Mucous membranes are without erythema. Throat : buccal mucosa is normal, gums are without significant recession or hypertrophy. Lungs : Equal chest rise bilaterally, no use of accessory muscles, trachea is midline. Cor : Rate and rhythm are normal. Abdomen : Soft, ND, tender to palpation left lower quadrant, no g/r/m Extremities : No edema, no cyanosis or clubbing, dorsalis pedis pulses are present bilaterally, non-tender to palpation of calves. Upper extremities are normal bilaterally. Back : non-tender to palpation, no CVA tenderness. Neuro : CN II - XII intact, Upper and lower extremities have equal and full strength Data 12/26/22 03:55 12/26/22 03:55 Micro: Microbiology 12/24/22 16:38 Blood Culture - Preliminary Blood NEGATIVE TO DATE 12/24/22 16:38 Blood Culture - Preliminary Blood NEGATIVE TO DATE A&P Assessment and plan (1) Diverticulitis of colon with perforation: Plan Microperforation, contained N.p.o./IV fluids IV antibiotics Conservative management for now If he passes conservative management, which will include a 14-day course of antibiotics to be completed with Augmentin at home, he will need a colonoscopy in 6 to 8 weeks followed by laparoscopic sigmoidectomy Medical management per hospitalist Coding Level of Care Code Acute Code for [facility] Diagnoses Diverticulitis of colon with perforation K57.20
[2022-12-25] MEDS: carvedilol 12.5 mg Tablet PO (20:27)
[2022-12-26] VITALS: BP 104/67; PULSE 86; RESP 18; TEMP 36.4; O2SAT 95
[2022-12-26] MEDS: sodium chloride 0.9% 1,000 ML 60 ML IV ×2 (01:42→17:33)
[2022-12-26] MEDS: piperacillin-tazobactam 3.375 GM in sodium chloride 0.9% (plus) 50 ML IV ×3 (03:33→18:11)
[2022-12-26 04:00] VITALS: BP 106/70; PULSE 85; RESP 16; TEMP 37.1; O2SAT 92
[2022-12-26 04:41] LABS: Basophils # 0.1 10^3/uL (0.0-0.1); Basophils % 0.6 %; Eosinophils # 0.3 10^3/uL (0.0-0.8); Eosinophils % 2.8 %; Hematocrit 42.5 % (42.0-52.0); Hemoglobin 13.8 g/dL (11.7-16.6); Lymphocytes # 1.9 10^3/uL (0.8-4.8); Lymphocytes % 20.4 %; Mean Corpuscular HGB Conc 32.5 g/dL (30.0-36.0); Mean Corpuscular Hemoglobin 32.5 pg (28.0-34.0); Mean Platelet Volume 11.7 fL (7.4-10.4); Monocytes # 0.9 10^3/uL (0.2-0.9); Monocytes % 10.2 %; Neutrophils # 5.98 10^3/uL (1.8-7.7); Neutrophils % 65.8 %; Nucleated Red Blood Cells % 0 %; Platelet Count 175 10^3/cmm (130-400); Red Blood Count 4.25 10^6/uL (4.1-5.3); Red Cell Distribution Width 13.3 % (12.1-15.1); White Blood Count 9.1 10^3/uL (4.0-10.0)
[2022-12-26 05:00] LABS: Anion Gap 11.9 (5-19); Blood Urea Nitrogen 12 mg/dL (8-23); Calcium 8.7 mg/dL (8.5-10.5); Carbon Dioxide 27 mmol/L (22-29); Chloride 100 mmol/L (98-107); Glomerular Filtration Rate 84.4 mL/min (90-130); Glucose 90 mg/dL (65-115); Osmolality Calculated 279 mOsm/kg (285-295); Potassium 3.9 mmol/L (3.5-5.1); Sodium 135 mmol/L (136-145)
[2022-12-26] MEDS: aspirin 81 mg EC Tablet PO (05:16)
[2022-12-26 07:14] VITALS: BP 117/83; PULSE 93; RESP 15; TEMP 36.9; O2SAT 94
[2022-12-26] MEDS: allopurinol 100 mg Tablet PO ×2 (07:57→17:33)
[2022-12-26] MEDS: carvedilol 12.5 mg Tablet PO ×2 (07:57→20:18)
--- NOTE | 2022-12-26 10:41 | PM.PN ---
Vitals/I&O/Wt Last Vital Signs Temp 98.4 F 12/26/22 07:14 Pulse 93 12/26/22 07:14 Resp 15 12/26/22 07:14 BP 117/83 12/26/22 07:14 Pulse Ox 94 12/26/22 07:14 O2 Del Method 12/26/22 04:00 12/25/22 12/26/22 12/26/22 22:59 06:59 14:59 Intake Total 530 / 1580 1060 / 2640 50 / 50 Balance 530 / 1580 1060 / 2640 50 / 50 Weight last 48 hrs Weight 270 lb Physical Exam Narrative: Gen: NAD, AAOx3 Abd: S, mild LLQ tenderness, ND, no g/r/m Data 12/26/22 03:55 12/26/22 03:55 Micro: Microbiology 12/24/22 16:38 Blood Culture - Preliminary Blood NEGATIVE TO DATE 12/24/22 16:38 Blood Culture - Preliminary Blood NEGATIVE TO DATE A&P Assessment and plan (1) Diverticulitis of colon with perforation: Plan Microperforation, contained Clear liquids IV antibiotics Conservative management for now If he passes conservative management, which will include a 14-day course of antibiotics to be completed with Augmentin at home, he will need a colonoscopy in 6 to 8 weeks followed by laparoscopic sigmoidectomy Likely soft diet and home tomorrow Medical management per hospitalist Attestations Medical Necessity Statement*: per primary Coding Level of Care Code Acute Code for [facility] Diagnoses Diverticulitis of colon with perforation K57.20
[2022-12-26 12:00] VITALS: BP 112/72; PULSE 100; RESP 16; TEMP 36.6; O2SAT 94
--- NOTE | 2022-12-26 12:43 | PM.PN ---
Subjective Subjective: seen today feels better Vitals/I&O/Wt Last Vital Signs Temp 97.9 F 12/26/22 12:00 Pulse 100 12/26/22 12:00 Resp 16 12/26/22 12:00 BP 112/72 12/26/22 12:00 Pulse Ox 94 12/26/22 12:00 O2 Del Method 12/26/22 04:00 12/25/22 12/26/22 12/26/22 22:59 06:59 14:59 Intake Total 530 / 1580 1060 / 2640 50 / 50 Balance 530 / 1580 1060 / 2640 50 / 50 Weight last 48 hrs Weight 122.47 kg Physical Exam Narrative: Patient is laying supine No active distress Abdomen is soft, non tender. No active emesis Awake and alert Pleasant and cooperative Nonfocal neuro exam No active CHF exacerbation signs Lower extremity no edema Data 12/26/22 03:55 12/26/22 03:55 Micro: Microbiology 12/24/22 16:38 Blood Culture - Preliminary Blood NEGATIVE TO DATE 12/24/22 16:38 Blood Culture - Preliminary Blood NEGATIVE TO DATE A&P Assessment and plan (1) Diverticulitis of colon with perforation: (2) History of colonic polyps: (3) AICD (automatic cardioverter/defibrillator) present: (4) PVC (premature ventricular contraction): (5) Diverticulitis large intestine: (6) COPD (chronic obstructive pulmonary disease): Qualifiers: COPD type: emphysema Emphysema type: panlobular Qualified Code(s): J43.1 - Panlobular emphysema (7) Atrial fibrillation: Qualifiers: Atrial fibrillation type: paroxysmal Qualified Code(s): I48.0 - Paroxysmal atrial fibrillation Plan #Diverticulitis with microabscess, contained perforation #Atrial fibrillation status post ablation and hybrid maze #History of cardiomyopathy #History of systolic congestive heart failure chronic #Status post AICD placement #Hypertension #Dyslipidemia #COPD ? He has failed outpatient therapy ? Continue on IV Zosyn at this time. ? Patient will be high risk for any kind of surgical intervention medically. ? Has been on the hypotensive side. We will hold Entresto at this time as well ? Await recommendations from general surgery. Dr. Reese has been consulted from the ER. - DUOneb q4h PRN - Start on clear liquids - Stop IV fluids 2/2 hx of HF - Will restart xarelto Full code DVT prophylaxis: SCDs Diet: clear liquid diet Attestations Medical Necessity Statement*: If continued improvement, plan for dc in am Diagnoses Diverticulitis of colon with perforation K57.20 History of colonic polyps Z86.010 AICD (automatic cardioverter/defibrillator) present Z95.810 PVC (premature ventricular contraction) I49.3 Diverticulitis large intestine K57.32 COPD (chronic obstructive pulmonary disease) J43.1 COPD type: emphysema Emphysema type: panlobular Atrial fibrillation I48.0 Atrial fibrillation type: paroxysmal
[2022-12-26] MEDS: rivaroxaban 10 mg Tablet 20 MG PO (13:07)
[2022-12-26 15:50] VITALS: BP 107/75; PULSE 87; RESP 17; TEMP 36.2; O2SAT 95
[2022-12-26 20:00] VITALS: BP 118/79; PULSE 78; RESP 20; TEMP 36.9; O2SAT 96
[2022-12-27 00:42] VITALS: BP 118/78; PULSE 70; RESP 22; TEMP 36.8; O2SAT 96
[2022-12-27] MEDS: piperacillin-tazobactam 3.375 GM in sodium chloride 0.9% (plus) 50 ML IV ×2 (03:53→11:25)
[2022-12-27] MEDS: aspirin 81 mg EC Tablet PO (05:26)
[2022-12-27 05:47] VITALS: BP 119/82; PULSE 85; RESP 16; TEMP 36.8; O2SAT 97
[2022-12-27 08:00] VITALS: BP 136/96; PULSE 75; RESP 17; TEMP 36.7; O2SAT 95
--- NOTE | 2022-12-27 09:05 | P.DS_ITS ---
Discharge Providers Date of Admission: 12/24/22 15:10 Date of Discharge: December 27, 2022 Attending Provider at Admission: Ilene Tristan MD Attending Provider at Discharge: Ilene Tristan MD Primary Care Provider: Wilman Larios MD Diagnoses at Discharge Discharge Diagnosis (1) Diverticulitis of colon with perforation: Status: Acute (2) History of colonic polyps: Status: Acute (3) AICD (automatic cardioverter/defibrillator) present: Status: Acute (4) PVC (premature ventricular contraction): Status: Acute (5) Diverticulitis large intestine: Status: Acute (6) COPD (chronic obstructive pulmonary disease): Status: Acute Qualifiers: COPD type: emphysema Emphysema type: panlobular Qualified Code(s): J43.1 - Panlobular emphysema (7) Atrial fibrillation: Status: Acute Qualifiers: Atrial fibrillation type: paroxysmal Qualified Code(s): I48.0 - Paroxysmal atrial fibrillation Permanent problem details: s/p hybrid Maze (VATS) and atrial fibrillation ablation in Jun 2017 Reason for Visit Reason for Visit: abd pain Brief History: Yayo Rivera is a 67 year old male who has been dealing with his diverticulitis for last 2 to 3 weeks, he was seen in the ER on November as well, he has finished 10 days of antibiotics however because of worsening of pain and subjective fevers he decided to come to the hospital for the evaluation.? Patient is stating that he gets 1 episode of diverticulitis every year, Dr. Larios did recommend that he should wait before any surgical intervention because of poor EF he has reduce ejection fraction heart failure status post AICD/pacemaker, he has not experienced any chest pain, shortness of breath, nausea, vomiting.? Patient has not experienced any emesis, but endorsing nausea he is compliant with medication, does not drink or smoke.? Patient has history of IV drug abuse in the past he has quit smoking and alcohol. In the ER he has been diagnosed with diverticulitis with microperforation, Reese has been consulted he has been kept n.p.o. we will hold Xarelto and Entresto, his dose of Xarelto was on December 24 in the morning Hospital Course Hospital Course Admitted for acute diverticular he improved on IV Zosyn. General surgery on board. Plan to send home with 2 weeks of antibiotics and follow-up with surgery as an outpatient for planned colonoscopy. Patient's blood pressure was on the lower side during hospital stay. Entresto was held and blood pressure improved. Had a long discussion with the patient regarding his Entresto and we will hold for now. He will follow-up with PCP and cardiology for resuming that. All questions answered and patient will be discharged home in stable condition. Does not appear fluid overloaded at this time. Vital stable. Physical Exam Narrative: Patient is laying supine No active distress Abdomen is soft, non tender. No active emesis Awake and alert Pleasant and cooperative Nonfocal neuro exam No active CHF exacerbation signs Lower extremity no edema Discharge Data Studies Completed and Pending Completed Studies During Hospitalization Category Date Time Status CT abdomen pelvis w con* [id number] Stat Cat Scan 12/24/22 11:25 Completed Pending at discharge Category Date Time Status Blood Culture Routine Lab 12/24/22 16:38 Results Radiology Impressions Abdomen/Pelvis CT 12/24/22 11:25 IMPRESSION: 1. Progression of acute moderate to severe sigmoid diverticulitis since 12/03/2022. Inflammatory changes surrounding the sigmoid extend medially. Findings are consistent with a contained perforation from diverticulitis. No abscess at this time. There is narrowing of the lumen and circumferential wall thickening of the sigmoid. 2. Hepatic and renal cysts. 3. No change in the adrenal nodules which are probably adenomas. Laboratory Results WBC 9.1 10^3/uL (4.0-10.0) 12/26/22 03:55 RBC 4.25 10^6/uL (4.1-5.3) 12/26/22 03:55 Hgb 13.8 g/dL (11.7-16.6) 12/26/22 03:55 Hct 42.5 % (42.0-52.0) 12/26/22 03:55 MCV 100.0 fl (80-94) H 12/26/22 03:55 MCH 32.5 pg (28.0-34.0) 12/26/22 03:55 MCHC 32.5 g/dL (30.0-36.0) 12/26/22 03:55 RDW 13.3 % (12.1-15.1) 12/26/22 03:55 Plt Count 175 10^3/cmm (130-400) 12/26/22 03:55 MPV 11.7 fL (7.4-10.4) H 12/26/22 03:55 Neut % (Auto) 65.8 % 12/26/22 03:55 Lymph % (Auto) 20.4 % 12/26/22 03:55 [place] % (Auto) 10.2 % 12/26/22 03:55 Eos % (Auto) 2.8 % 12/26/22 03:55 Baso % (Auto) 0.6 % 12/26/22 03:55 Neut # (Auto) 5.98 10^3/uL (1.8-7.7) 12/26/22 03:55 Lymph # (Auto) 1.9 10^3/uL (0.8-4.8) 12/26/22 03:55 [place] # (Auto) 0.9 10^3/uL (0.2-0.9) 12/26/22 03:55 Eos # (Auto) 0.3 10^3/uL (0.0-0.8) 12/26/22 03:55 Baso # (Auto) 0.1 10^3/uL (0.0-0.1) 12/26/22 03:55 Nucleated RBC % (auto) 0 % 12/26/22 03:55 Nucleated RBCs # 0.0 /100WBC 12/26/22 03:55 Sodium 135 mmol/L (136-145) L 12/26/22 03:55 Potassium 3.9 mmol/L (3.5-5.1) 12/26/22 03:55 Chloride 100 mmol/L (98-107) 12/26/22 03:55 Carbon Dioxide 27 mmol/L (22-29) 12/26/22 03:55 Anion Gap 11.9 (5-19) 12/26/22 03:55 BUN 12 mg/dL (8-23) 12/26/22 03:55 Creatinine 0.9 mg/dL (0.7-1.2) 12/26/22 03:55 GFR Calculation 84.4 mL/min (90-130) L 12/26/22 03:55 Glucose 90 mg/dL (65-115) 12/26/22 03:55 Calculated Osmolality 279 mOsm/kg (285-295) L 12/26/22 03:55 Lactate 1.5 mmol/L (0.5-2.2) 12/24/22 09:35 Calcium 8.7 mg/dL (8.5-10.5) 12/26/22 03:55 Magnesium 2.0 mg/dL (1.7-2.3) 12/25/22 04:56 Total Bilirubin 1.3 mg/dL (0.15-1.2) H 12/25/22 04:56 AST 13 U/L (0-40) 12/25/22 04:56 ALT 14 U/L (0-41) 12/25/22 04:56 Alkaline Phosphatase 59 U/L (40-130) 12/25/22 04:56 Total Protein 6.1 g/dL (6.6-8.7) L 12/25/22 04:56 Albumin 3.4 g/dL (3.5-5.2) L 12/25/22 04:56 Globulin 2.7 g/dL (1.3-4.6) 12/25/22 04:56 Procalcitonin 0.04 ng/mL (0-0.5) 12/24/22 09:58 TSH 0.61 uIU/mL (0.27-4.20) 12/24/22 16:38 Urine Color Yellow (Yellow) 12/24/22 12:19 Urine Appearance Clear (CLEAR) 12/24/22 12:19 Urine pH 7 (5-7) 12/24/22 12:19 Ur Specific [place] 1.010 (1.005-1.030) 12/24/22 12:19 Urine Protein Neg (Negative) 12/24/22 12:19 Urine Glucose (UA) Norm (Normal) 12/24/22 12:19 Urine Ketones Negative (Negative) 12/24/22 12:19 Urine Blood Neg (Negative) 12/24/22 12:19 Urine Nitrate Negative (Negative) 12/24/22 12:19 Urine Bilirubin Neg (Negative) 12/24/22 12:19 Urine Urobilinogen Norm mg/dL (Negative) 12/24/22 12:19 Ur Leukocyte Esterase Negative (Negative) 12/24/22 12:19 Vitals Last Vital Signs Temp 98.3 F 12/27/22 05:47 Pulse 85 12/27/22 05:47 Resp 16 12/27/22 05:47 BP 119/82 12/27/22 05:47 Pulse Ox 97 12/27/22 05:47 O2 Del Method 12/26/22 20:00 Discharge Plan Discharge Patient Disposition: Home Condition: Stable Prescriptions: New amoxicillin-pot clavulanate 875-125 mg tablet 1 tab PO BID 12 Days Qty: 24 0RF Continued aspirin [Adult Low Dose Aspirin] 81 mg tablet,delayed release (DR/EC) 81 mg PO QAM vitamin B complex [B Complex-Vitamin B12] Tablet 1 tab PO QAM ascorbic acid (vitamin C) 1,000 mg tablet 1 gm PO QAM carvedilol 12.5 mg tablet 12.5 mg PO BID Qty: 180 3RF atorvastatin 20 mg tablet 20 mg PO BEDTIME Qty: 90 3RF trazodone 100 mg tablet 100 mg PO BEDTIME Qty: 90 3RF allopurinol 100 mg tablet 100 mg PO BID Qty: 60 4RF Xarelto 20 mg tablet 20 mg PO QAM Qty: 90 1RF potassium 99 mg Tablet 99 mg PO DAILY torsemide 20 mg tablet 30 mg PO BID cholecalciferol (vitamin D3) [Vitamin D3] 50 mcg (2,000 unit) Tablet 50 mcg PO QAM spironolactone 25 mg tablet 12.5 mg PO QAM Hold Instructions: Resume on 06/27/22. alprazolam 0.5 mg tablet 0.5 mg PO BEDTIME PRN (Reason: Anxiety) Atrovent HFA 17 mcg/actuation HFA aerosol inhaler 2 puff INHALATION QAM Held Entresto 49-51 mg tablet 1 tab PO BID Hold Instructions: BP has been low. Please see pcp before resuming. Discharge Orders: Discharge Order (Routine); Ordered 12/27/22 Ordered By: Ilene Tristan Referrals: Jasmeet Reese DO [Physician] - 2 weeks (Please call Dr. Reese's office Wednesday morning to schedule an appointment within 2 weeks. ) Wilman Larios MD [Primary Care Provider] - 4-7 days (Please call Dr. Larios's office Wednesday morning to schedule a hospital follow up appointment within 1 week. ) Kourtney Carrillo FNP [Nurse Practitioner] - 1 week (Please call Kourtney Carrillo's office Wednesday to schedule a follow up appointment. ) Discharge Diet: Cardiac Discharge Activity: Resume usual activity Patient Instructions: Amoxicillin/Clavulanate Potassium (By mouth), Diverticulitis (GEN), Opioid Safety Activity Restrictions/Additional Instructions: Please return to ER if you experience worsening of symptoms or new symptoms develop. Your blood pressure was on low at admission therefore entresto was held. Please follow up with PCP and cardiology before resuming the medication. If you develop chest pain, shortness of breath, or any symptoms, return to ER. Discharge Attestations Time Spent in Discharge Care*: greater than 30 min Status at Discharge: Cognitive status at discharge: cognitively intact , Quality Metrics Clinical Quality Measures [ No reported AMI, CVA or VTE this stay] Coding Level of Care Code Acute Code for Chg Fwd Diagnoses Diverticulitis of colon with perforation K57.20 History of colonic polyps Z86.010 AICD (automatic cardioverter/defibrillator) present Z95.810 PVC (premature ventricular contraction) I49.3 Diverticulitis large intestine K57.32 COPD (chronic obstructive pulmonary disease) J43.1 COPD type: emphysema Emphysema type: panlobular Atrial fibrillation I48.0 Atrial fibrillation type: paroxysmal
[2022-12-27] MEDS: rivaroxaban 10 mg Tablet 20 MG PO (10:03)
[2022-12-27] MEDS: allopurinol 100 mg Tablet PO (10:03)
[2022-12-27] MEDS: carvedilol 12.5 mg Tablet PO (10:03)
[2022-12-27 12:00] VITALS: BP 135/75; PULSE 92; RESP 18; TEMP 36.6; O2SAT 94
--- NOTE | 2022-12-27 13:06 | PC.SOCIAL ---
IMM Update pg 2 of IMM updated and reviewed w/ patient. Copy provided and Copy dated, initialed and placed in chart.
== END 2022-12-27 15:06 | disposition home or self-care (01) ==
LOC: ER 14:06 → MEDSURG 15:15
PROVIDERS: Family Medicine; Admitting Provider Internal Medicine; Emergency Provider Nurse Practitioner Family; PCP Internal Medicine; Visit Provider Internal Medicine
DX: K57.20 Diverticulitis of large intestine with perforation and abscess without bleeding (principal); Z86.010 Personal history of colon polyps; Z95.810 Presence of automatic (implantable) cardiac defibrillator; I49.3 Ventricular premature depolarization; K57.32 Diverticulitis of large intestine without perforation or abscess without bleeding; J43.1 Panlobular emphysema; I48.0 Paroxysmal atrial fibrillation; I11.0 Hypertensive heart disease with heart failure; I50.20 Unspecified systolic (congestive) heart failure; E78.5 Hyperlipidemia, unspecified; J44.9 Chronic obstructive pulmonary disease, unspecified; Z79.82 Long term (current) use of aspirin; Z87.891 Personal history of nicotine dependence
CPT/HCPCS: 36415; 74177; 80048; 80053; 81003; 83605; 83735; 84145; 84443; 85025; 87040; 96374; 96375; 99285; G0378; J2270; J2405; J2543; J7030; Q9967

== ENCOUNTER → 2022-12-29 15:41 | Outpatient (BNVA) | payer MEDICARE, MEDICAID, SELFPAY | PROVIDERS: PCP Internal Medicine; Visit Provider Internal Medicine Cardiovascular Disease | DX: Z45.02 Encounter for adjustment and management of automatic implantable cardiac defibrillator (principal) | CPT/HCPCS: 93296 ==

== ENCOUNTER → 2023-01-01 08:43 | Outpatient (BNVA) | payer MEDICARE, MEDICAID, SELFPAY | PROVIDERS: PCP Internal Medicine; Visit Provider Nurse Practitioner Family | DX: I11.0 Hypertensive heart disease with heart failure (principal); I50.20 Unspecified systolic (congestive) heart failure; I25.10 Atherosclerotic heart disease of native coronary artery without angina pectoris; I48.0 Paroxysmal atrial fibrillation; Z95.810 Presence of automatic (implantable) cardiac defibrillator; Z87.891 Personal history of nicotine dependence; Z79.01 Long term (current) use of anticoagulants; Z79.82 Long term (current) use of aspirin | CPT/HCPCS: 99214 ==

== ENCOUNTER → 2023-01-19 13:16 | Outpatient (BNVA) | payer MEDICARE, MEDICAID, SELFPAY | PROVIDERS: PCP Internal Medicine; Visit Provider Surgery | DX: K57.20 Diverticulitis of large intestine with perforation and abscess without bleeding (principal); K64.9 Unspecified hemorrhoids; K43.2 Incisional hernia without obstruction or gangrene | CPT/HCPCS: 99203 ==

== ENCOUNTER → 2023-03-29 09:13 | Outpatient (BNVA) | payer MEDICARE, MEDICAID, SELFPAY | PROVIDERS: PCP Internal Medicine; Visit Provider Nurse Practitioner Family | DX: I48.0 Paroxysmal atrial fibrillation (principal); I25.10 Atherosclerotic heart disease of native coronary artery without angina pectoris; Z95.810 Presence of automatic (implantable) cardiac defibrillator; I11.0 Hypertensive heart disease with heart failure; I50.20 Unspecified systolic (congestive) heart failure; Z79.01 Long term (current) use of anticoagulants; Z79.82 Long term (current) use of aspirin; Z87.891 Personal history of nicotine dependence | CPT/HCPCS: 99214 ==

== ENCOUNTER → 2023-04-08 08:05 | Outpatient (BNVA) | payer MEDICARE, MEDICAID, SELFPAY | PROVIDERS: PCP Internal Medicine; Visit Provider Internal Medicine Cardiovascular Disease | DX: Z45.02 Encounter for adjustment and management of automatic implantable cardiac defibrillator (principal) | CPT/HCPCS: 93296 ==

== ENCOUNTER 2023-06-10 14:55 | Emergency (ER) | payer MEDICARE, MEDICAID, SELFPAY ==
[2023-06-10 14:59] VITALS: BP 122/82; PULSE 83; RESP 15; TEMP 36.7; O2SAT 97
--- NOTE | 2023-06-10 15:25 | ED_ITS ---
HPI - GI Bleed General: Chief complaint: GI Bleed Stated complaint: Blood in stool Time Seen by Provider: 06/10/23 15:13 Source: patient Mode of arrival: ambulatory History of Present Illness: Has a history of hemorrhoids he is also on Xarelto he was out shopping and had a sudden large bloody bowel movement was uncontrollable. Left blood through his clothes. He recently had a bowel resection on May 03 for diverticulitis he has not had any problems since then. Has a significant cardiac history including atrial fibrillation and is on Xarelto. He also has an implantable defibrillator. He has a history of cardiomyopathy. MD complaint: gross hematochezia Onset (ago): minute(s) Relieving factors: none Context: hemorrhoids Associated symptoms: Denies abdominal pain, chills, easy bruising, epistaxis, fever(s), headache(s), malaise, nausea, other bleeding, poor appetite, rash, syncope, vomiting or weakness Review of Systems Const: Denies: fever(s), chills, fatigue or malaise ENMT: Denies: epistaxis Card: Denies: chest pain, palpitations, irregular heart rhythm or syncope Resp: Denies: dyspnea, productive cough or non-productive cough GI: Reports: hematochezia; Denies: abdominal pain, nausea or vomiting : Denies: flank pain, dysuria, urinary frequency or urinary urgency Skin/Breast: Denies: rash Neuro: Denies: headache(s) Philippe/Lymph: Denies: easy bruising PFSH ED PFSH: Medical History Atrial fibrillation s/p hybrid Maze (VATS) and atrial fibrillation ablation in Jun 2017 Cardiomyopathy COPD (chronic obstructive pulmonary disease) Dehydration Dyslipidemia HTN (hypertension) Hypotensive episode Systolic CHF Surgical History AICD (automatic cardioverter/defibrillator) present H/O cardiac radiofrequency ablation H/O circumcision H/O colonoscopy 3 yrs ago, H/O heart surgery Maze H/O removal of cyst thyroid, testicle H/O umbilical hernia repair Family History Father Myocardial infarct Mother Aneurysm Grandmother Cancer liver Other CAD (coronary artery disease) Denies family history of Diabetes Anesthesia complication Bleeding disorder Social History Smoking and tobacco status: former smoker Quit status (tobacco): has quit using tobacco Alcohol intake: current Alcohol intake frequency: holidays/special occasions only Substance/Drug Use: former Household members: family Marital status: Single Current occupational status: retired Physical Exam Const: COMMON NORMALS: no acute distress GENERAL APPEARANCE: cooperative and comfortable ORIENTATION/CONSCIOUSNESS: Yes awake, Yes oriented to person, Yes oriented to place and Yes oriented to time HENMT: COMMON NORMALS: normocephalic, atraumatic and hearing grossly normal bilaterally HEAD & SCALP: normocephalic and atraumatic Resp: COMMON NORMALS: normal respiratory effort, No retractions, No use of accessory muscles and clear to auscultation bilaterally AUSCULTATION: clear to auscultation bilaterally Cardio: COMMON NORMALS: regular rate, regular rhythm and No murmurs present (Cardio) RATE: regular rate RHYTHM: regular rhythm GI: COMMON NORMALS: Soft to palpation and No hepatosplenomegaly present AUSCULTATION: Yes normoactive bowel sounds PALPATION: Yes Soft to palpation, No Tenderness to palpation present (GI), No Guarding due to palpation present (GI) and Yes No hepatosplenomegaly present OTHER: Rectal exam scant amount of blood at the rectal verge darkened no active bleeding or nonthrombosed hemorrhoids noted. Extremity: COMMON NORMALS: normal to inspection, capillary refill normal, no clubbing, cyanosis or edema, no calf tenderness and no pedal edema Neuro: SENSORIUM/ORIENTATION: Yes oriented to person, Yes oriented to place and Yes oriented to time Skin: COMMON NORMALS: no rashes or lesions noted GENERAL SKIN EXAM: no rashes or lesions noted Course Vital Signs: Vital signs: Vital Signs Temperature 98.0 F 06/10/23 14:59 Pulse Rate 70 06/10/23 17:08 Respiratory Rate 18 06/10/23 15:34 Blood Pressure 101/79 06/10/23 17:08 Pulse Oximetry 94 06/10/23 17:08 Oxygen Delivery Me thod Room Air 06/10/23 16:30 MDM - GI Bleed Medical Decision Making No active bleeding at this time. He she has had a couple of episodes of blood- streaked stool. His abdominal exam is benign. Hemoglobin 14.9 8oh hemorrhoids he did not appear to be actively bleeding or thrombosis. Discharge home continue current medications recheck CBC in the next 1 to 2 days. Medical Records I reviewed the patient's medical records. Lab Data I reviewed the patient's lab results. 06/10/23 15:26 06/10/23 15:26 Laboratory Results WBC 8.0 10^3/uL (4.0-10.0) 06/10/23 15: RBC 4.67 10^6/uL (4.1-5.3) 06/10/23 15:26 Hgb 14.9 g/dL (11.7-16.6) 06/10/23 15: Hct 45.0 % (42.0-52.0) 06/10/23 15: MCV 96.4 fl (80-94) H 06/10/23 15: MCH 31.9 pg (28.0-34.0) 06/10/23 15: MCHC 33.1 g/dL (30.0-36.0) 06/10/23 15: RDW 13.7 % (12.1-15.1) 06/10/23 15: Plt Count 215 10^3/cmm (130-400) 06/10/23 15: MPV 11.2 fL (7.4-10.4) H 06/10/23 15:26 Neut % (Auto) 63.7 % 06/10/23 15:26 Lymph % (Auto) 24.4 % 06/10/23 15:26 [place] % (Auto) 8.4 % 06/10/23 15:26 Eos % (Auto) 2.6 % 06/10/23 15:26 Baso % (Auto) 0.6 % 06/10/23 15:26 Neut # (Auto) 5.09 10^3/uL (1.8-7.7) 06/10/23 15:26 Lymph # (Auto) 2.0 10^3/uL (0.8-4.8) 06/10/23 15:26 [place] # (Auto) 0.7 10^3/uL (0.2-0.9) 06/10/23 15:26 Eos # (Auto) 0.2 10^3/uL (0.0-0.8) 06/10/23 15:26 Baso # (Auto) 0.1 10^3/uL (0.0-0.1) 06/10/23 15:26 Nucleated RBC % (auto) 0 % 06/10/23 15:26 Nucleated RBCs # 0.0 /100WBC 06/10/23 15:26 PT 21.90 SECONDS (12.1-14.9) H 06/10/23 15:26 INR 1.84 (0.8-1.2) H 06/10/23 15:26 APTT 35.9 SECONDS (23.9-36.7) 06/10/23 15:26 Sodium 141 mmol/L (136-145) 06/10/23 15:26 Potassium 4.4 mmol/L (3.5-5.1) 06/10/23 15:26 Chloride 102 mmol/L (98-107) 06/10/23 15:26 Carbon Dioxide 28 mmol/L (22-29) 06/10/23 15:26 Anion Gap 15.4 (5-19) 06/10/23 15:26 BUN 19 mg/dL (8-23) 06/10/23 15:26 Creatinine 1.0 mg/dL (0.7-1.2) 06/10/23 15:26 GFR Calculation 74.5 mL/min (90-130) L 06/10/23 15:26 Glucose 134 mg/dL (65-115) H 06/10/23 15:26 Calculated Osmolality 296 mOsm/kg (285-295) H 06/10/23 15:26 Calcium 9.6 mg/dL (8.5-10.5) 06/10/23 15:26 Total Bilirubin 0.5 mg/dL (0.15-1.2) 06/10/23 15:26 AST 18 U/L (0-40) 06/10/23 15:26 ALT 21 U/L (0-41) 06/10/23 15:26 Alkaline Phosphatase 63 U/L (40-130) 06/10/23 15:26 Total Protein 6.4 g/dL (6.6-8.7) L 06/10/23 15:26 Albumin 4.1 g/dL (3.5-5.2) 06/10/23 15:26 Globulin 2.3 g/dL (1.3-4.6) 06/10/23 15:26 Discharge Plan Discharge Patient Disposition: Home Clinical Impression: Hematochezia, Diverticulitis, Hemorrhoids Condition: Stable Prescriptions: New amoxicillin-pot clavulanate 875-125 mg tablet 1 tab PO BID Qty: 14 0RF Anusol-HC 2.5 % cream with perineal applicator 1 applic SC QID 21 Days Qty: 30 0RF No Action aspirin [Adult Low Dose Aspirin] 81 mg tablet,delayed release (DR/EC) 81 mg PO QAM vitamin B complex [B Complex-Vitamin B12] Tablet 1 tab PO QAM ascorbic acid (vitamin C) 1,000 mg tablet 1 gm PO QAM hydrocortisone [Anusol-HC] 2.5 % cream with perineal applicator 1 applic SC QID 10 Days Qty: 30 1RF Rx Instructions: May repeat for another 10 days if no resolution trazodone 100 mg tablet 100 mg PO BEDTIME Qty: 90 3RF allopurinol 100 mg tablet 100 mg PO BID Qty: 60 4RF Xarelto 20 mg tablet 20 mg PO QAM Qty: 90 1RF atorvastatin 20 mg tablet 20 mg PO BEDTIME Qty: 90 3RF spironolactone 25 mg tablet 12.5 mg PO QAM Qty: 45 1RF Hold Instructions: Resume on 06/27/22. sacubitril-valsartan 24-26 mg tablet 1 tab PO BID Qty: 180 3RF carvedilol 12.5 mg tablet 12.5 mg PO BID Qty: 180 3RF torsemide 20 mg tablet 30 mg PO BID Qty: 270 1RF cholecalciferol (vitamin D3) [Vitamin D3] 50 mcg (2,000 unit) Tablet 50 mcg PO QAM alprazolam 0.5 mg tablet 0.5 mg PO BEDTIME PRN (Reason: Anxiety) Atrovent HFA 17 mcg/actuation HFA aerosol inhaler 2 puff INHALATION QAM potassium citrate 99 mg Capsule 99 mg PO DAILY Discharge Orders: Discharge ED (Routine); Ordered 06/10/23 Ordered By: Christopher Garnett Referrals: Wilman Larios MD [Primary Care Provider] - Discharge Diet: Clear Liquid Discharge Activity: Resume usual activity Patient Instructions: Opioid Safety, Pain Management Activity Restrictions/Additional Instructions: Clear liquid diet for 24 to 48 hours and advance as tolerated Coding Level of Care Code ED Manufacturing Director for Krista Mina
[2023-06-10 15:34] VITALS: BP 111/74; PULSE 79; RESP 18; O2SAT 96
[2023-06-10 15:50] LABS: Basophils # 0.1 10^3/uL (0.0-0.1); Basophils % 0.6 %; Eosinophils # 0.2 10^3/uL (0.0-0.8); Eosinophils % 2.6 %; Hemoglobin 14.9 g/dL (11.7-16.6); INR 1.84 (0.8-1.2); Lymphocytes % 24.4 %; Mean Corpuscular HGB Conc 33.1 g/dL (30.0-36.0); Mean Corpuscular Hemoglobin 31.9 pg (28.0-34.0); Mean Corpuscular Volume 96.4 fl (80-94); Mean Platelet Volume 11.2 fL (7.4-10.4); Monocytes # 0.7 10^3/uL (0.2-0.9); Monocytes % 8.4 %; Neutrophils # 5.09 10^3/uL (1.8-7.7); Neutrophils % 63.7 %; Nucleated Red Blood Cells % 0 %; Platelet Count 215 10^3/cmm (130-400); Red Blood Count 4.67 10^6/uL (4.1-5.3); Red Cell Distribution Width 13.7 % (12.1-15.1)
[2023-06-10 15:51] LABS: Partial Thromboplastin Time 35.9 SECONDS (23.9-36.7)
[2023-06-10 15:59] LABS: Alanine Aminotransferase 21 U/L (0-41); Albumin Level 4.1 g/dL (3.5-5.2); Alkaline Phosphatase 63 U/L (40-130); Anion Gap 15.4 (5-19); Aspartate Amino Transferase 18 U/L (0-40); Blood Urea Nitrogen 19 mg/dL (8-23); Calcium 9.6 mg/dL (8.5-10.5); Carbon Dioxide 28 mmol/L (22-29); Chloride 102 mmol/L (98-107); Globulin 2.3 g/dL (1.3-4.6); Glomerular Filtration Rate 74.5 mL/min (90-130); Glucose 134 mg/dL (65-115); Osmolality Calculated 296 mOsm/kg (285-295); Potassium 4.4 mmol/L (3.5-5.1); Sodium 141 mmol/L (136-145); Total Bilirubin 0.5 mg/dL (0.15-1.2); Total Protein 6.4 g/dL (6.6-8.7)
[2023-06-10 16:30] VITALS: BP 95/67; PULSE 75; O2SAT 94
[2023-06-10 17:08] VITALS: BP 101/79; PULSE 70; O2SAT 94
== END 2023-06-10 17:09 | disposition home or self-care (01) ==
PROVIDERS: Emergency Provider Family Medicine; PCP Internal Medicine
DX: K57.92 Diverticulitis of intestine, part unspecified, without perforation or abscess without bleeding (principal); K64.9 Unspecified hemorrhoids; K92.1 Melena; Z79.82 Long term (current) use of aspirin; Z87.891 Personal history of nicotine dependence; Z90.49 Acquired absence of other specified parts of digestive tract; J44.9 Chronic obstructive pulmonary disease, unspecified; E78.5 Hyperlipidemia, unspecified; I11.0 Hypertensive heart disease with heart failure; I50.20 Unspecified systolic (congestive) heart failure; Z95.810 Presence of automatic (implantable) cardiac defibrillator
CPT/HCPCS: 80053; 85025; 85610; 85730; 99283

== ENCOUNTER → 2023-07-09 10:48 | Outpatient (BNVA) | payer MEDICARE, MEDICAID, SELFPAY | PROVIDERS: PCP Internal Medicine; Visit Provider Internal Medicine Cardiovascular Disease | DX: I48.0 Paroxysmal atrial fibrillation (principal); I11.0 Hypertensive heart disease with heart failure; I50.20 Unspecified systolic (congestive) heart failure; I42.9 Cardiomyopathy, unspecified; I49.3 Ventricular premature depolarization; E78.5 Hyperlipidemia, unspecified; Z87.891 Personal history of nicotine dependence; Z79.01 Long term (current) use of anticoagulants; Z79.82 Long term (current) use of aspirin | CPT/HCPCS: 99214 ==

== ENCOUNTER → 2023-10-25 11:08 | Outpatient (BNVA) | payer MEDICARE, MEDICAID, SELFPAY | PROVIDERS: PCP Internal Medicine; Visit Provider Internal Medicine Cardiovascular Disease | DX: Z45.02 Encounter for adjustment and management of automatic implantable cardiac defibrillator (principal) | CPT/HCPCS: 93296 ==

== ENCOUNTER → 2024-02-01 09:35 | Outpatient (BNVA) | payer MEDICARE, MEDICAID, SELFPAY | PROVIDERS: PCP Internal Medicine; Visit Provider Nurse Practitioner Family | DX: I25.10 Atherosclerotic heart disease of native coronary artery without angina pectoris (principal); I48.0 Paroxysmal atrial fibrillation; Z95.810 Presence of automatic (implantable) cardiac defibrillator; I11.0 Hypertensive heart disease with heart failure; I50.22 Chronic systolic (congestive) heart failure; Z87.891 Personal history of nicotine dependence; Z79.01 Long term (current) use of anticoagulants | CPT/HCPCS: 99214 ==

== ENCOUNTER → 2024-02-10 09:42 | Outpatient (BNVA) | payer MEDICARE, MEDICAID, SELFPAY | PROVIDERS: PCP Internal Medicine; Visit Provider Podiatrist Foot & Ankle Surgery | DX: L60.3 Nail dystrophy (principal); I73.9 Peripheral vascular disease, unspecified | CPT/HCPCS: 11721; 99203 ==

== ENCOUNTER 2024-02-19 10:43 | Emergency (ER) | payer MEDICARE, MEDICAID, SELFPAY ==
[2024-02-19 10:52] VITALS: BP 114/77; PULSE 84; RESP 16; TEMP 36.5; O2SAT 96
[2024-02-19 10:59] VITALS: BP 114/77; PULSE 84; O2SAT 95
--- NOTE | 2024-02-19 11:04 | ED_ITS ---
HPI - Abdominal Pain 2 General: Chief Complaint: Abdominal Pain Stated Complaint: abd pain Time Seen by Provider: 02/19/24 10:52 Source: patient Mode of arrival: ambulatory History of Present Illness: 69-year-old male presents emergency room with onset of abdominal pain overnight with some nausea no vomiting he has had some loose stools. He previously had significant diverticulitis and within the last year had a colon resection that was done in [place]. No fever sweats or chills he has not been on any antibiotics since his previous surgery. He states he is Chronically had abdominal discomfort since that time. No hematochezia or melena. MD elicited complaint: abdominal pain Pertinent past history: diverticulitis Onset (ago): hour(s) Location: Periumbilical Quality: cramping Associated Symptoms: Reports GI cramping, diarrhea, nausea and poor appetite; Denies anorexia, belching, bloating, change in bowel habits, change in stool character, chills, coffee ground emesis, constipation, dyspepsia, dysuria, excessive flatus, fever(s), heartburn, hematochezia, hematuria, hematemesis, fecal incontinence, loose stools, melena, syncope and vomiting Review of Systems 2 Const: Denies: fever(s) or chills Card: Denies: chest pain or syncope Resp: Denies: dyspnea GI: Reports: abdominal pain, nausea, diarrhea and GI cramping; Denies: vomiting, hematemesis, coffee ground emesis, heartburn, constipation, bloating, belching, excessive flatus, fecal incontinence, change in bowel habits, change in stool character, hematochezia or melena : Denies: dysuria, urinary frequency, urinary urgency or hematuria Musc: Denies: neck pain or back pain Skin/Breast: Denies: rash PFSH ED 2 PFSH: Medical History Systolic CHF Dehydration Hypotensive episode COPD (chronic obstructive pulmonary disease) HTN (hypertension) Dyslipidemia Cardiomyopathy Atrial fibrillation s/p hybrid Maze (VATS) and atrial fibrillation ablation in Jun 2017 Surgical History AICD (automatic cardioverter/defibrillator) present H/O removal of cyst thyroid, testicle H/O cardiac radiofrequency ablation H/O heart surgery Maze H/O umbilical hernia repair H/O circumcision H/O colonoscopy 3 yrs ago, Family History Father Myocardial infarct Mother Aneurysm Grandmother Cancer liver Other CAD (coronary artery disease) Denies family history of Diabetes Anesthesia complication Bleeding disorder Social History Smoking and tobacco/nicotine status: former use of tobacco/nicotine Quit status (tobacco/nicotine): has quit using Alcohol intake: current Alcohol intake frequency: holidays/special occasions only Substance/Drug Use: former Household members: family Marital status: Single Current occupational status: retired Physical Exam 2 Const: COMMON NORMALS: no acute distress GENERAL APPEARANCE: cooperative and comfortable ORIENTATION/CONSCIOUSNESS: Yes awake, Yes oriented to person, Yes oriented to place and Yes oriented to time HENMT: COMMON NORMALS: normocephalic, atraumatic and hearing grossly normal bilaterally HEAD & SCALP: normocephalic and atraumatic Resp: COMMON NORMALS: normal respiratory effort, No retractions, No use of accessory muscles and clear to auscultation bilaterally AUSCULTATION: clear to auscultation bilaterally Cardio: COMMON NORMALS: regular rate, regular rhythm and No murmurs present (Cardio) RATE: regular rate RHYTHM: regular rhythm GI: COMMON NORMALS: Soft to palpation and No hepatosplenomegaly present A USCULTATION: Yes normoactive bowel sounds PALPATION: Yes Soft to palpation, No Tenderness to palpation present (GI), No Guarding due to palpation present (GI) and Yes No hepatosplenomegaly present Extremity: COMMON NORMALS: normal to inspection, capillary refill normal, no clubbing, cyanosis or edema, no calf tenderness and no pedal edema Neuro: SENSORIUM/ORIENTATION: Yes oriented to person, Yes oriented to place and Yes oriented to time Skin: COMMON NORMALS: no rashes or lesions noted GENERAL SKIN EXAM: no rashes or lesions noted Course 2 Vital Signs: Vital signs: Vital Signs Temperature 97.7 F 02/19/24 10:52 Pulse Rate 79 02/19/24 13:30 Respiratory Rate 16 02/19/24 10:52 Blood Pressure 132/93 02/19/24 13:30 Pulse Oximetry 93 02/19/24 13:30 Oxygen Delivery Me thod Room Air 02/19/24 10:52 MDM - Abdominal Pain Medical Decision Making CT shows signs of colitis no sign of perforation at the anastomosis no abscess. Will start Augmentin 875. He referred to 10 days clear liquid diet for 24 to 48 hours and advance as tolerated promethazine as needed. Recheck if not improving Differential Diagnosis Likely abdominal pain Medical Records I reviewed the patient's medical records. Lab Data I reviewed the patient's lab results. 02/19/24 11:10 02/19/24 11:10 Labs/Radiology: Radiology Impressions Abdomen/Pelvis CT 02/19/24 11:40 IMPRESSION: 1. Constellation of findings suggestive of enterocolitis. 2. Relative thickening along the sigmoid colon could be on the basis of underdistention or chronic sequela of prior diverticulitis. Neoplasm not entirely excluded. Consider colonoscopy if not recently performed. 3. Stable enhancing 1 cm left renal lesion. Consideration for indolent neoplasm. 4. Additional chronic and incidental findings as above, to include atherosclerosis. Laboratory Results WBC 9.91 10^3/uL (3.29-11.43) 02/19/24 11:10 RBC 5.22 10^6/uL (3.85-5.65) 02/19/24 11:10 Hgb 17.00 g/dL (11.27-16.99) H 02/19/24 11:10 Hct 50.8 % (37-53) 02/19/24 11:10 MCV 97.3 fl (82-101) 02/19/24 11:10 MCH 32.6 pg (27-33) 02/19/24 11:10 MCHC 33.5 g/dL (30-55) 02/19/24 11:10 RDW 13.4 % (12.1-15.1) 02/19/24 11:10 Plt Count 208 10^3/cmm (157-399) 02/19/24 11:10 MPV 11.3 fL (7.4-10.4) H 02/19/24 11:10 Neut % (Auto) 75.9 % 02/19/24 11:10 Lymph % (Auto) 14.6 % 02/19/24 11:10 [place] % (Auto) 7.7 % 02/19/24 11:10 Eos % (Auto) 1.2 % 02/19/24 11:10 Baso % (Auto) 0.4 % 02/19/24 11:10 Neut # (Auto) 7.52 10^3/uL (1.8-7.7) 02/19/24 11:10 Lymph # (Auto) 1.5 10^3/uL (0.8-4.8) 02/19/24 11:10 [place] # (Auto) 0.8 10^3/uL (0.2-0.9) 02/19/24 11:10 Eos # (Auto) 0.1 10^3/uL (0.0-0.8) 02/19/24 11:10 Baso # (Auto) 0.0 10^3/uL (0.0-0.1) 02/19/24 11:10 Nucleated RBC % (auto) 0 % 02/19/24 11:10 Nucleated RBCs # 0.0 /100WBC 02/19/24 11:10 Sodium 136 mmol/L (136-145) 02/19/24 11:10 Potassium 4.8 mmol/L (3.5-5.1) 02/19/24 11:10 Chloride 99 mmol/L (98-107) 02/19/24 11:10 Carbon Dioxide 28 mmol/L (22-29) 02/19/24 11:10 Anion Gap 13.8 (5-19) 02/19/24 11:10 BUN 28 mg/dL (8-23) H 02/19/24 11:10 Creatinine 1.1 mg/dL (0.7-1.2) 02/19/24 11:10 GFR Calculation 66.6 mL/min (90-130) L 02/19/24 11:10 Glucose 182 mg/dL (65-115) H 02/19/24 11:10 Calculated Osmolality 292 mOsm/kg (285-295) 02/19/24 11:10 Calcium 9.3 mg/dL (8.5-10.5) 02/19/24 11:10 Total Bilirubin 1.0 mg/dL (0.15-1.2) 02/19/24 11:10 AST 30 U/L (0-40) 02/19/24 11:10 ALT 29 U/L (0-41) 02/19/24 11:10 Alkaline Phosphatase 70 U/L (40-130) 02/19/24 11:10 Total Protein 7.1 g/dL (6.6-8.7) 02/19/24 11:10 Albumin 4.2 g/dL (3.5-5.2) 02/19/24 11:10 Globulin 2.9 g/dL (1.3-4.6) 02/19/24 11:10 Lipase 15 U/L (13-60) 02/19/24 11:10 Urine Color Straw (Yellow) 02/19/24 11:19 Urine Appearance Clear (CLEAR) 02/19/24 11:19 Urine pH 7 (5-7) 02/19/24 11:19 Ur Specific [place] 1.015 (1.005-1.030) 02/19/24 11:19 Urine Protein Neg (Negative) 02/19/24 11:19 Urine Glucose (UA) Norm (Normal) 02/19/24 11:19 Urine Ketones Negative (Negative) 02/19/24 11:19 Urine Blood Neg (Negative) 02/19/24 11:19 Urine Nitrate Negative (Negative) 02/19/24 11:19 Urine Bilirubin Neg (Negative) 02/19/24 11:19 Urine Urobilinogen Norm mg/dL (Negative) 02/19/24 11:19 Ur Leukocyte Esterase Negative (Negative) 02/19/24 11:19 All radiology interpretation(s) finalized by discharge Discharge Plan Discharge Patient Disposition: Home Clinical Impression: Colitis Condition: Stable Prescriptions: New amoxicillin-pot clavulanate 875-125 mg tablet 1 tab PO BID Qty: 20 0RF promethazine 25 mg tablet 25 mg PO Q6H PRN (Reason: nausea and vomiting) Qty: 20 0RF No Action aspirin [Adult Low Dose Aspirin] 81 mg tablet,delayed release (DR/EC) 81 mg PO QAM ascorbic acid (vitamin C) 1,000 mg tablet 1 gm PO QAM hydrocortisone [Anusol-HC] 2.5 % cream with perineal applicator 1 applic OR QID PRN (Reason: hemorrhoids) Rx Instructions: May repeat for another 10 days if no resolution trazodone 100 mg tablet 100 mg PO BEDTIME Qty: 90 3RF allopurinol 100 mg tablet 100 mg PO BID Qty: 60 4RF Xarelto 20 mg tablet 20 mg PO QAM Qty: 90 1RF sacubitril-valsartan 24-26 mg tablet 1 tab PO BID Qty: 180 3RF torsemide 20 mg tablet 30 mg PO BID Qty: 270 1RF carvedilol 12.5 mg tablet 12.5 mg PO BID Qty: 180 3RF atorvastatin 20 mg tablet 20 mg PO BEDTIME Qty: 90 3RF spironolactone 25 mg tablet 12.5 mg PO QAM Qty: 45 1RF Hold Instructions: Resume on 06/27/22. cholecalciferol (vitamin D3) [Vitamin D3] 50 mcg (2,000 unit) Tablet 50 mcg PO QAM alprazolam 0.5 mg tablet 0.5 mg PO BEDTIME PRN (Reason: Anxiety) Atrovent HFA 17 mcg/actuation HFA aerosol inhaler 2 puff INHALATION QAM Super B Complex Tablet 1 tab PO DAILY potassium gluconate 595 mg (99 mg) Tablet 99 mg PO QAM Discharge Orders: Discharge ED (Routine); Ordered 02/19/24 Ordered By: Christopher Garnett Referrals: Wilman Larios MD [Primary Care Provider] - Discharge Diet: Clear Liquid Discharge Activity: Increase activity as tolerated Patient Instructions: Opioid Safety, Pain Management Activity Restrictions/Additional Instructions: Thank you for choosing [facility] for your healthcare needs today. Please realize this is an emergency room and that we are providing you with a medical screening exam and this may not be complete and all inclusive of all the testing and or work up that you may need to determine your ailment or severity of your illness. It is very important that you follow up as instructed or that you return to the Emergency Department should you have concerns or if your condition changes or worsens in any way. You are seen today for abdominal pain. CT showed some mild inflammation of the distal portions of the colon near where your previous colon resection was. There is no sign of any perforation. This is potentially an infectious process such as diverticulitis. Recommend starting the oral antibiotics clear liquid diet for 24 to 48 hours and advance as tolerated. You can use the nausea medications as needed. If not improving recheck with your doctor. Coding Level of Care Code ED Insurance Agency Owner for Krista Mina
[2024-02-19 11:32] LABS: Add Urine Microscopic? NO; Charge for UA Resulting for Rev
[2024-02-19 11:35] LABS: Specific Gravity, Urine 1.015 (1.005-1.030); Urine Appearance Clear (CLEAR); Urine Color Straw (Yellow); pH Urine 7 (5-7)
[2024-02-19 11:36] LABS: Basophils % 0.4 %; Eosinophils # 0.1 10^3/uL (0.0-0.8); Eosinophils % 1.2 %; Hematocrit 50.8 % (37-53); Lymphocytes # 1.5 10^3/uL (0.8-4.8); Lymphocytes % 14.6 %; Mean Corpuscular HGB Conc 33.5 g/dL (30-55); Mean Corpuscular Hemoglobin 32.6 pg (27-33); Mean Corpuscular Volume 97.3 fl (82-101); Mean Platelet Volume 11.3 fL (7.4-10.4); Monocytes # 0.8 10^3/uL (0.2-0.9); Monocytes % 7.7 %; Neutrophils # 7.52 10^3/uL (1.8-7.7); Neutrophils % 75.9 %; Nucleated Red Blood Cells % 0 %; Platelet Count 208 10^3/cmm (157-399); Red Blood Count 5.22 10^6/uL (3.85-5.65); Red Cell Distribution Width 13.4 % (12.1-15.1); White Blood Count 9.91 10^3/uL (3.29-11.43)
[2024-02-19 11:36] LABS: Bilirubin Urine Neg (Negative); Blood Urine Neg (Negative); Glucose Urine UA Norm (Normal); Ketones Urine Negative (Negative); Leukocyte Esterase Urine Negative (Negative); Nitrate Urine Negative (Negative); Protein Urine Neg (Negative); Urobilinogen Urine Norm (Negative)
--- NOTE | 2024-02-19 11:40 | CTR_ITS ---
PROCEDURE INFORMATION: Exam: CT Abdomen And Pelvis With Contrast Exam date and time: 02/19/2024 12:42 PM Age: 69 years old Clinical indication: Abdominal pain; Generalized; Prior surgery; Surgery date: 6+ months; Surgery type: Partial colon (hx diverticulitis); Additional info: Abd pain TECHNIQUE: Imaging protocol: Computed tomography of the abdomen and pelvis with contrast. Radiation optimization: All CT scans at this facility use at least one of these dose optimization techniques: automated exposure control; mA and/or kV adjustment per patient size (includes targeted exams where dose is matched to clinical indication); or iterative reconstruction. Contrast material: OMNI 350; Contrast volume: 100 ml; Contrast route: INTRAVENOUS (IV); COMPARISON: 1. CT abdomen pelvis w con* [id number] 03/03/2020 1:[address] abdomen pelvis w con* [id number] 12/24/2022 12:[address] abdomen pelvis wo con [id number] 06/19/2022 12:13 PM RADIATION DOSE METRICS: Total DLP (mGy-cm): 1223.96 FINDINGS: Tubes, catheters and devices: Partially visualized AICD lead. Lungs: Minimal dependent atelectasis. Lingular linear atelectasis versus scarring. Diaphragm: Small hiatal hernia. Liver: Multiple hepatic cysts and subcentimeter hypodensities too small to characterize. Otherwise unremarkable. Gallbladder and bile ducts: Normal. No calcified stones. No ductal dilation. Pancreas: Normal. No ductal dilation. Spleen: Normal. No splenomegaly. Adrenal glands: Stable bilateral 1.2 cm adrenal nodules likely representing adenomas. Kidneys and ureters: Stable bilateral renal cysts. Enhancing 1 cm posterior left upper renal lesion on axial image 27 of series 4 is stable from February 2020. Stomach and bowel: No obstruction. Colonic diverticulosis. Relative thickening of the proximal sigmoid colon. Mild pericolonic edema not centered on a diverticulum. Suggestion of mucosal hyperenhancement of the small bowel with multiple fluid-filled nondilated loops and mild perienteric edema. Fluid also present within the ascending colon. Appendix: No evidence of appendicitis. Intraperitoneal space: Mild free fluid at the lower abdomen. No free air or focal well organized fluid collection. Vasculature: Heavy systemic atherosclerosis without abdominal aortic aneurysm. Lymph nodes: Unremarkable. No enlarged lymph nodes. Urinary bladder: Unremarkable as visualized. Reproductive: Unremarkable as visualized. Bones/joints: No acute fracture. Degenerative changes along the spine and sacroiliac joints. Soft tissues: Small fat containing left greater than right inguinal hernias. CT/CT abdomen pelvis w con* [id number] IMPRESSION: 1. Constellation of findings suggestive of enterocolitis. 2. Relative thickening along the sigmoid colon could be on the basis of underdistention or chronic sequela of prior diverticulitis. Neoplasm not entirely excluded. Consider colonoscopy if not recently performed. 3. Stable enhancing 1 cm left renal lesion. Consideration for indolent neoplasm. 4. Additional chronic and incidental findings as above, to include atherosclerosis.
--- NOTE | 2024-02-19 11:40 | PC.PHAR ---
pt states he takes care of his own medications-pt states takes the medications entered
[2024-02-19 11:57] LABS: Alanine Aminotransferase 29 U/L (0-41); Albumin Level 4.2 g/dL (3.5-5.2); Alkaline Phosphatase 70 U/L (40-130); Anion Gap 13.8 (5-19); Aspartate Amino Transferase 30 U/L (0-40); Blood Urea Nitrogen 28 mg/dL (8-23); Calcium 9.3 mg/dL (8.5-10.5); Carbon Dioxide 28 mmol/L (22-29); Chloride 99 mmol/L (98-107); Creatinine Clr Calc Pharmacy 93.3295; Globulin 2.9 g/dL (1.3-4.6); Glomerular Filtration Rate 66.6 mL/min (90-130); Glucose 182 mg/dL (65-115); Lipase 15 U/L (13-60); Osmolality Calculated 292 mOsm/kg (285-295); Potassium 4.8 mmol/L (3.5-5.1); Sodium 136 mmol/L (136-145); Total Protein 7.1 g/dL (6.6-8.7)
[2024-02-19 12:23] VITALS: BP 174/98; PULSE 79; O2SAT 91
[2024-02-19] MEDS: iohexol 350 mg/mL 500 mL Btl (per mL) IV (12:42)
[2024-02-19 13:30] VITALS: BP 132/93; PULSE 79; O2SAT 93
[2024-02-19 14:02] VITALS: BP 132/93; PULSE 79; O2SAT 93
== END 2024-02-19 13:51 | disposition home or self-care (01) ==
PROVIDERS: Emergency Provider Family Medicine; PCP Internal Medicine
DX: K52.9 Noninfective gastroenteritis and colitis, unspecified (principal); Z79.82 Long term (current) use of aspirin; Z87.891 Personal history of nicotine dependence; I11.0 Hypertensive heart disease with heart failure; I50.20 Unspecified systolic (congestive) heart failure; J44.9 Chronic obstructive pulmonary disease, unspecified; E78.5 Hyperlipidemia, unspecified; I43 Cardiomyopathy in diseases classified elsewhere; Z95.810 Presence of automatic (implantable) cardiac defibrillator
CPT/HCPCS: 74177; 80053; 81003; 83690; 85025; 99285; Q9967

== ENCOUNTER → 2024-04-19 14:50 | Outpatient (BNVA) | payer MEDICARE, MEDICAID, SELFPAY | PROVIDERS: PCP Internal Medicine; Visit Provider Internal Medicine Cardiovascular Disease | DX: Z45.02 Encounter for adjustment and management of automatic implantable cardiac defibrillator (principal) | CPT/HCPCS: 93296 ==

== ENCOUNTER → 2024-08-01 14:58 | Outpatient (BNVA) | payer MEDICARE, MEDICAID, SELFPAY | PROVIDERS: PCP Nurse Practitioner Family; Visit Provider Internal Medicine Cardiovascular Disease | DX: R06.02 Shortness of breath (principal); I48.0 Paroxysmal atrial fibrillation; E78.5 Hyperlipidemia, unspecified; I42.8 Other cardiomyopathies; I10 Essential (primary) hypertension; I49.3 Ventricular premature depolarization; Z95.810 Presence of automatic (implantable) cardiac defibrillator; I73.9 Peripheral vascular disease, unspecified | CPT/HCPCS: 99214 ==

== ENCOUNTER 2024-08-07 12:35 | Outpatient (CLI) | payer MEDICARE, MEDICAID, SELFPAY ==
--- NOTE | 2024-08-07 13:00 | CT_ITS ---
WS: [id number] LDCT LUNG CANCER SCREENING HISTORY: Z87.891 - Personal history of nicotine dependence TECHNIQUE: Axial imaging performed from the apices to 1 cm below the costophrenic angles. Coronal and sagittal reformats are submitted with axial MIP series. All CT scans at [facility] use at least one of these dose optimization techniques: automated exposure control; mA and/or kV adjustment per patient size (includes targeted exams where dose is matched to clinical indication); or iterativ e reconstruction. DLP: 148.21 mGy.cm DIvol: Mean CTDIvol: 3.30 (mGy) COMPARISON: None available. Diagnostic quality: Satisfactory Lungs: Mild pulmonary hyperinflation. There are 2 micronodules which are less than 3 mm. LEFT upper l obe nodule and a RIGHT perifissural nodule are identified. There are no masses or pneumonia. No endob ronchial lesions. Heart: Normal size heart. LEFT subclavian defibrillator.. Other findings: Atherosclerosis aorta. No adenopathy. Mild bilateral gynecomastia. Numerous low-atten uation masses in the liver and kidneys. Patient has known hepatic and renal cysts. Stable nodule RIGH T adrenal gland. CT/CT lung screening [id number] IMPRESSION: LUNG-RADS: 2-Benign Appearance or Behavior FOLLOW UP: 12 Month: Continue annual screening with LDCT OTHER FINDINGS (S MODIFIER): None.
== END 2024-08-07 12:36 | disposition home or self-care (01) ==
LOC: RAD 12:36
PROVIDERS: PCP Nurse Practitioner Family; Visit Provider Nurse Practitioner Family
DX: Z12.2 Encounter for screening for malignant neoplasm of respiratory organs (principal); Z87.891 Personal history of nicotine dependence; I70.0 Atherosclerosis of aorta; R16.0 Hepatomegaly, not elsewhere classified; Q61.02 Congenital multiple renal cysts; D35.01 Benign neoplasm of right adrenal gland
CPT/HCPCS: 36415; 71271; 80048; 80053; 80061; 83036; 83880; 84443; 85025

== ENCOUNTER → 2024-08-29 11:21 | Outpatient (BNVA) | payer MEDICARE, MEDICAID, SELFPAY | PROVIDERS: PCP Nurse Practitioner Family; Visit Provider Podiatrist Foot & Ankle Surgery | DX: L60.3 Nail dystrophy (principal); I73.9 Peripheral vascular disease, unspecified | CPT/HCPCS: 11721 ==

== ENCOUNTER 2024-09-05 11:43 | Outpatient (CLI) | payer MEDICARE, MEDICAID, SELFPAY ==
--- NOTE | 2024-09-05 12:00 | USCV_ITS ---
Yayo Rivera Age: 69 Gender: M : 1955 Exam Date: 09/05/2024 12:15 Ordering Phys: Kami Hendrix MD ([email or web address]) Technologist: CT Exam Location: [facility] [place] Indication: chf BP: 140 / 86 HR: Rhythm: Sinus Technical Quality: Adequate MEASUREMENTS (Male / Female) Normal Values 2D ECHO LVOT Diameter 2.3 cm LV Ejection Fraction MOD 4C 39.9 % LV Ejection Fraction MOD 2C 34.7 % LV Ejection Fraction 2C AL 34.0 % LA Diameter 4.5 cm RA Systolic Volume 4C AL 114.4 ml RA Systolic Volume 4C MOD 108.7 ml LA Sys Volume AL 76.7 cm cubed LA Sys Volume Index AL 28.2 cm cubed/m squared Aorta at Sinotubular Diameter 2.8 cm M-MODE LA Ao Ratio MM 1.4 AV Cusp Separation MM 2.9 cm FINDINGS Left Ventricle Diffuse hypokinesia of the left ventricle, more so of the septum. Overall LV ejection fraction around 36% Right Ventricle Possibly normal size ejection fraction Right Atrium Mildly increased right atrial size. Left Atrium Mildly increased left atrial size. Mitral Valve No gross morphology abnormalities noted Aortic Valve No gross abnormalities noted Tricuspid Valve Not visualized well not visualized well. Pulmonic Valve Pulmonic valve not well visualized. Pericardium No pericardial effusion. Aorta Normal aortic annulus size. IVC Inferior vena cava not visualized. CONCLUSIONS Diffuse hypokinesia of the left-ventricle, more so of the septum. Overall LV ejection fraction around 35%. Mild biatrial enlargement. No gross morphologic abnormalities in the aortic or mitral valves There is no pericardial effusion. There are no intracardiac masses. Technically difficult study because of the poor ultrasonic window. Compared to the study from 09/10/2022, there may not be significant change Dr Kami Hendrix MD [facility] (Electronically Signed) Final Date: 07 September 2024 09:56 S
== END 2024-09-05 11:44 | disposition home or self-care (01) ==
LOC: RAD 11:45
PROVIDERS: PCP Nurse Practitioner Family; Visit Provider Internal Medicine Cardiovascular Disease
DX: I50.22 Chronic systolic (congestive) heart failure (principal); I48.0 Paroxysmal atrial fibrillation; I42.8 Other cardiomyopathies; I51.7 Cardiomegaly
CPT/HCPCS: 93308

== ENCOUNTER → 2024-11-30 14:31 | Outpatient (BNVA) | payer MEDICARE, MEDICAID, SELFPAY | PROVIDERS: PCP Nurse Practitioner Family; Visit Provider Podiatrist Foot & Ankle Surgery | DX: L60.3 Nail dystrophy (principal); I73.9 Peripheral vascular disease, unspecified; L84 Corns and callosities | CPT/HCPCS: 11056; 11721 ==

== ENCOUNTER → 2025-01-30 08:33 | Outpatient (BNVA) | payer MEDICARE, MEDICAID, SELFPAY | PROVIDERS: PCP Nurse Practitioner Family; Visit Provider Nurse Practitioner Family | DX: I48.0 Paroxysmal atrial fibrillation (principal); E78.5 Hyperlipidemia, unspecified; I42.8 Other cardiomyopathies; I10 Essential (primary) hypertension; I49.3 Ventricular premature depolarization; Z95.810 Presence of automatic (implantable) cardiac defibrillator; I73.9 Peripheral vascular disease, unspecified | CPT/HCPCS: 99213 ==

== ENCOUNTER → 2025-02-01 12:49 | Outpatient (BNVA) | payer MEDICARE, MEDICAID, SELFPAY | PROVIDERS: PCP Nurse Practitioner Family; Visit Provider Podiatrist Foot & Ankle Surgery | DX: I73.9 Peripheral vascular disease, unspecified (principal); L60.3 Nail dystrophy; M10.9 Gout, unspecified | CPT/HCPCS: 11721; 99213 ==

== ENCOUNTER 2025-04-03 11:19 | Inpatient (IN) | payer OTHER, MEDICAID, SELFPAY ==
[2025-04-03] VITALS (22 sets, daily range): BP systolic 92–149; BP diastolic 57–120; PULSE 108–172; RESP 18–37; TEMP 36.2–36.6; O2SAT 90–94; BMI 38.5
--- NOTE | 2025-04-03 11:25 | ECG_ITS ---
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
--- NOTE | 2025-04-03 11:26 | XRR_ITS ---
PROCEDURE INFORMATION: Exam: XR Chest Exam date and time: 04/03/2025 11:36 AM Age: 70 years old Clinical indication: Pain; Angina pectoris; Prior surgery; Surgery date: 6+ months; Surgery type: Pacer heart ablation maze proc; Rapid heart rate; Additional info: Cp TECHNIQUE: Imaging protocol: Radiologic exam of the chest. Views: 1 view. COMPARISON: CT lung screening [id number] 08/07/2024 1:04 PM FINDINGS: Tubes, catheters and devices: Single lead pacemaker/defibrillator. Lungs: Mild chronic interstitial prominence with superimposed atelectasis or infiltrate in the left lower lobe. Pleural spaces: Unremarkable. No pleural effusion. No pneumothorax. Heart/Mediastinum: Left atrial appendage clip. Vasculature: Mild cardiomegaly and uncoiling of the thoracic aorta. Bones/joints: Unremarkable. XR/XR chest 1V portable [id number] IMPRESSION: Mild opacity at the left lung base.
--- NOTE | 2025-04-03 11:33 | W.ED.ARRPALP ---
HPI - Arrhythmia/Palpitations General: Chief Complaint: Arrhythmia/Palpitations Stated Complaint: a fib, sob Time Seen by Provider: 04/03/25 11:30 Source: patient Mode of arrival: ambulatory Limitations: no limitations History of Present Illness: 70-year-old male history of A-fib along with coronary artery disease states he has been having shortness of breath along with palpitations over the last 2 days. He is in A-fib with RVR heart rate in the 160s. He states he gets feeling this way when his A-fib is out of control. Associated symptoms: Deny nausea or vomiting Related Data Home Medications ?Medication ?Instructions ?Recorded ?Confirmed aspirin 81 mg tablet,delayed 81 mg PO QAM 11/15/19 02/01/25 release (Adult Low Dose Aspirin) alprazolam 0.5 mg tablet 0.5 mg PO BEDTIME PRN Anxiety 06/19/22 02/01/25 ipratropium bromide 17 2 puff inhalation QAM 06/19/22 02/01/25 mcg/actuation HFA aerosol inhaler (Atrovent HFA) potassium gluconate 595 mg (99 mg) 99 mg PO QAM 02/19/24 02/01/25 tablet Previous Rx's ?Medication ?Instructions ?Recorded trazodone 100 mg tablet 100 mg PO BEDTIME #90 tabs 01/21/22 allopurinol 100 mg tablet 100 mg PO BID #60 tabs 07/20/22 rivaroxaban 20 mg tablet (Xarelto) 20 mg PO QAM #90 tabs 09/23/22 sacubitril 24 mg-valsartan 26 mg 1 tab PO BID #180 tabs 05/15/24 tablet empagliflozin 10 mg tablet 10 mg PO DAILY #90 tabs 09/21/24 (Jardiance) carvedilol 12.5 mg tablet See Rx Instructions .Route 09/28/24 .COMPLEX #180 tabs atorvastatin 20 mg tablet 20 mg PO BEDTIME #90 tabs 11/27/24 spironolactone 25 mg tablet See Rx Instructions .Route 12/28/24 .COMPLEX #45 tabs torsemide 20 mg tablet 30 mg (1.5 x 20 mg) PO BID #270 03/12/25 tabs Allergies Allergy/AdvReac Type Severity Reaction Status Date / Time diltiazem (From Cardizem) Allergy Unknown ADR/ALGY-Hy Verified 02/01/25 13:10 potension metolazone AdvReac Unknown Unknown Verified 02/01/25 13:10 Review of Systems Const: Denies: fever(s), chills, body aches or change in appetite ENMT: Denies: throat pain or dental pain Card: Reports: palpitations and irregular heart rhythm; Denies: chest pain Resp: Reports: dyspnea GI: Denies: abdominal pain, nausea, vomiting or diarrhea Musc: Denies: neck pain or back pain Skin/Breast: Denies: rash Neuro: Denies: headache(s) PFSH ED PFSH: Medical History Systolic CHF Dehydration Hypotensive episode COPD (chronic obstructive pulmonary disease) HTN (hypertension) (~08/01/24) Dyslipidemia Cardiomyopathy Atrial fibrillation s/p hybrid Maze (VATS) and atrial fibrillation ablation in Jun 2017 Surgical History AICD (automatic cardioverter/defibrillator) present H/O removal of cyst thyroid, testicle H/O cardiac radiofrequency ablation H/O heart surgery Maze H/O umbilical hernia repair H/O circumcision H/O colonoscopy 3 yrs ago, Family History Father Myocardial infarct Mother Aneurysm Grandmother Cancer liver Other CAD (coronary artery disease) Denies family history of Diabetes Anesthesia complication Bleeding disorder Social History Smoking and tobacco/nicotine status: former use of tobacco/nicotine Quit status (tobacco/nicotine): has quit using Alcohol intake: current Alcohol intake frequency: holidays/special occasions only Substance/Drug Use: former Household members: family Marital status: Single Current occupational status: retired Physical Exam Const: COMMON NORMALS: patient oriented x3 and healthy appearing HENMT: COMMON NORMALS: normocephalic and atraumatic HEAD & SCALP: normocephalic and atraumatic Eye: COMMON NORMALS: Equal, round and reactive pupils present and EOMs intact bilaterally PUPIL: Yes Equal, round and reactive pupils present Neck/C-Spine: COMMON NORMALS: full ROM and supple Chest: COMMONS NORMALS: normal inspection of the chest Resp: COMMON NORMALS: normal respiratory effort Cardio: COMMON NORMALS: No murmurs present (Cardio) RATE: tachycardic RHYTHM: abnormal rhythm irregularly irregular Extremity: COMMON NORMALS: normal to inspection and full ROM Neuro: COMMON NORMALS: patient oriented x3, moves all extremities and no focal motor deficits Psych: COMMON NORMALS: mental status grossly normal, Normal thought process present and cooperative THOUGHT PROCESS: Normal thought process present Skin: COMMON NORMALS: no rashes or lesions noted and no wounds GENERAL SKIN EXAM: no rashes or lesions noted Course Vital Signs: Vital signs: Vital Signs Temperature 97.5 F L 04/03/25 11:31 Pulse Rate 128 H 04/03/25 12:45 Respiratory Rate 19 H 04/03/25 11:31 Blood Pressure 103/88 04/03/25 12:45 Pulse Oximetry 93 04/03/25 12:45 Oxygen Delivery Me thod Room Air 04/03/25 12:45 MDM - Arrhythmia/Palpitations Medical Decision Making Patient presents here with A-fib with RVR did start him on amiodarone heart rates had some slight improvement he has otherwise been well-appearing here spoke to hospitalist will admit to [facility]. Medical Records I reviewed the patient's medical records. Lab Data I reviewed the patient's lab results. 04/03/25 11:40 04/03/25 11:40 Radiology Impressions Chest X-Ray 04/03/25 11:26 IMPRESSION: Mild opacity at the left lung base. Laboratory Results WBC 9.88 10^3/uL (3.29-11.43) 04/03/25 11:40 RBC 5.52 10^6/uL (3.85-5.65) 04/03/25 11:40 Hgb 17.50 g/dL (11.27-16.99) H 04/03/25 11:40 Hct 53.1 % (37-53) H 04/03/25 11:40 MCV 96.2 fl (82-101) 04/03/25 11:40 MCH 31.7 pg (27-33) 04/03/25 11:40 MCHC 33.0 g/dL (30-55) 04/03/25 11:40 RDW 14.2 % (12.1-15.1) 04/03/25 11:40 Plt Count 222 10^3/cmm (157-399) 04/03/25 11:40 MPV 10.8 fL (7.4-10.4) H 04/03/25 11:40 Neut % (Auto) 69.1 % 04/03/25 11:40 Lymph % (Auto) 19.5 % 04/03/25 11:40 Petroleum % (Auto) 9.0 % 04/03/25 11:40 Eos % (Auto) 1.5 % 04/03/25 11:40 Baso % (Auto) 0.6 % 04/03/25 11:40 Neut # (Auto) 6.82 10^3/uL (1.8-7.7) 04/03/25 11:40 Lymph # (Auto) 1.9 10^3/uL (0.8-4.8) 04/03/25 11:40 Petroleum # (Auto) 0.9 10^3/uL (0.2-0.9) 04/03/25 11:40 Eos # (Auto) 0.2 10^3/uL (0.0-0.8) 04/03/25 11:40 Baso # (Auto) 0.1 10^3/uL (0.0-0.1) 04/03/25 11:40 Nucleated RBC % (auto) 0 % 04/03/25 11:40 Nucleated RBCs # 0.0 /100WBC 04/03/25 11:40 PT 20.40 SECONDS (12.1-14.9) H 04/03/25 11:40 INR 1.63 (0.8-1.2) H 04/03/25 11:40 Sodium 139 mmol/L (136-145) 04/03/25 11:40 Potassium 4.5 mmol/L (3.5-5.1) 04/03/25 11:40 Chloride 99 mmol/L (98-107) 04/03/25 11:40 Carbon Dioxide 25 mmol/L (22-29) 04/03/25 11:40 Anion Gap 19.5 (5-19) H 04/03/25 11:40 BUN 28 mg/dL (8-23) H 04/03/25 11:40 Creatinine 1.2 mg/dL (0.7-1.2) 04/03/25 11:40 GFR Calculation 60.0 mL/min (90-130) L 04/03/25 11:40 Glucose 169 mg/dL (65-115) H 04/03/25 11:40 Calculated Osmolality 297 mOsm/kg (285-295) H 04/03/25 11:40 Calcium 9.4 mg/dL (8.5-10.5) 04/03/25 11:40 Total Bilirubin 1.0 mg/dL (0.15-1.2) 04/03/25 11:40 AST 27 U/L (0-40) 04/03/25 11:40 ALT 33 U/L (0-41) 04/03/25 11:40 Alkaline Phosphatase 71 U/L (40-130) 04/03/25 11:40 Troponin T Baseline 85 ng/L (0-15) H 04/03/25 11:40 NT-Pro-B Natriuret Pep 9950 pg/mL (0-125) H 04/03/25 11:40 Total Protein 6.9 g/dL (6.6-8.7) 04/03/25 11:40 Albumin 4.3 g/dL (3.5-5.2) 04/03/25 11:40 Globulin 2.6 g/dL (1.3-4.6) 04/03/25 11:40 All radiology interpretation(s) finalized by discharge EKG Data EKG 1: I personally reviewed and interpreted this EKG as follows: EKG interpretation date: 04/03/25 EKG interpretation time: Interpretation: afib hr [address] or t wave abnormalities qrs 119 qtc 374 Other EKG comments: Chest X-Ray 04/03/25 11:26 IMPRESSION: Mild opacity at the left lung base. Critical Care Time Critical Care Time: Critical Care Time: Yes Total Critical Care Time: 40 Attestation: The high probability of a clinically significant, sudden or life threatening deterioration of the patient's cv system(s) required my full and direct attention, intervention and personal management. The critical care time is as shown. 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
[2025-04-03] MEDS: amiodarone 150 MG/100 ML PREMIX 400 MG IV (11:36)
[2025-04-03 11:45] LABS: Basophils # 0.1 10^3/uL (0.0-0.1); Basophils % 0.6 %; Eosinophils # 0.2 10^3/uL (0.0-0.8); Eosinophils % 1.5 %; Hematocrit 53.1 % (37-53); Lymphocytes # 1.9 10^3/uL (0.8-4.8); Lymphocytes % 19.5 %; Mean Corpuscular Hemoglobin 31.7 pg (27-33); Mean Corpuscular Volume 96.2 fl (82-101); Mean Platelet Volume 10.8 fL (7.4-10.4); Monocytes # 0.9 10^3/uL (0.2-0.9); Neutrophils # 6.82 10^3/uL (1.8-7.7); Neutrophils % 69.1 %; Nucleated Red Blood Cells % 0 %; Platelet Count 222 10^3/cmm (157-399); Red Blood Count 5.52 10^6/uL (3.85-5.65); Red Cell Distribution Width 14.2 % (12.1-15.1); White Blood Count 9.88 10^3/uL (3.29-11.43)
[2025-04-03 12:04] LABS: INR 1.63 (0.8-1.2)
[2025-04-03 12:10] LABS: Troponin(5th) Baseline 85 ng/L (0-15)
[2025-04-03 12:21] LABS: Alanine Aminotransferase 33 U/L (0-41); Albumin Level 4.3 g/dL (3.5-5.2); Alkaline Phosphatase 71 U/L (40-130); Anion Gap 19.5 (5-19); Aspartate Amino Transferase 27 U/L (0-40); Blood Urea Nitrogen 28 mg/dL (8-23); Calcium 9.4 mg/dL (8.5-10.5); Carbon Dioxide 25 mmol/L (22-29); Chloride 99 mmol/L (98-107); Creatinine Clr Calc Pharmacy 85.2585; Globulin 2.6 g/dL (1.3-4.6); Glucose 169 mg/dL (65-115); NT Pro B Type Natriuretic Pept 9950 pg/mL (0-125); Osmolality Calculated 297 mOsm/kg (285-295); Potassium 4.5 mmol/L (3.5-5.1); Sodium 139 mmol/L (136-145); Total Protein 6.9 g/dL (6.6-8.7)
[2025-04-03] MEDS: sodium chloride 0.9% 500 ML 999 ML IV (13:36)
--- NOTE | 2025-04-03 13:38 | PC.NURSE ---
attempted to call report x2. Nurse to callback.
[2025-04-03 13:58] LABS: Troponin 5 2HR 68.47 ng/L (0-15)
[2025-04-03 13:59] LABS: Troponin 5 2HR Delta -16.53 ABS# (0-10)
[2025-04-03 15:13] LABS: Estmated Average Glucose 160; Hemoglobin A1C 7.2 % (4.0-6.0)
[2025-04-03 15:33] LABS: Iron 123 ug/dL (59-158); Thyroid Stimulating Hormone 1.45 uIU/mL (0.27-4.20); Total Iron Binding Capacity 323 mcg/dl; Unsaturated Iron Binding 200 ug/dL (112-347); Vitamin B12 512 pg/mL (232-1245)
[2025-04-03] MEDS: pantoprazole 40 mg SDV IVP (15:35)
[2025-04-03] MEDS: digoxin 250 mcg/ml INJ 2 mL 600 MCG IVP (15:36)
[2025-04-03] MEDS: FUROsemide 10 mg/mL SDV 4mL 40 MG IVP (15:37)
--- NOTE | 2025-04-03 15:44 | PM.HP ---
Providers/Chief Complaint Admitting Physician: Casey Nam MD Primary Care Provider: Wilman Larios MD Chief Complaint: a fib, sob History of Present Illness Yayo Rivera is a 70 year old male with past medical history of systolic congestive heart failure, atrial fibrillation with last echocardiogram from 2023 showing an EF of 26% with diffuse hypokinesia presents to the ER today because of palpitations and difficulty in breathing. Patient states he has been having worsening difficulty in breathing and not able to sleep at night for the last 3 days. States symptoms have been getting progressively worse and today he was not able to lie down ambulatory feeling in the chest so he presented to the ER. While here he was found to have A-fib with heart rate running 140s and started on amiodarone drip. Review of Systems General: Reports: 10 or more systems reviewed and unremarkable except in HPI and below Const: Denies: fever(s), chills, body aches, change in appetite, change in weight, malaise, night sweats, diaphoresis, change in sleep pattern, daytime sleepiness or snoring Eyes: Denies: change in vision, blurry vision, photophobia, eye discomfort or eye discharge ENMT: Denies: throat pain, enlarged tonsils, hoarseness, mouth pain, oral sores, dry mouth, tinnitus, nasal congestion or post nasal drip Card: Denies: chest pain, palpitations, irregular heart rhythm, edema, swelling of feet/ankles, lightheadedness, syncope, pre-syncope, dyspnea on exertion, orthopnea, leg pain with exertion or acrocyanosis Resp: Denies: dyspnea, productive cough, non-productive cough, wheezing, stridor, pain on inspiration, change in phlegm color, hemoptysis or chest congestion GI: Denies: abdominal pain, nausea, vomiting, hematemesis, coffee ground emesis, dysphagia, heartburn, diarrhea, constipation, bloating, GI cramping, change in bowel habits, pain on defecation, hematochezia or melena : Denies: flank pain, difficulty urinating, dysuria, urinary frequency, urinary urgency, urinary hesitancy, urinary dribbling, difficulty starting urination, change in urine stream, nocturia or hematuria Musc: Denies: neck pain, back pain, extremity pain, joint pain, joint swelling, joint redness, joint stiffness or limited range of motion Neuro: Denies: headache(s), numbness in extremities, weakness in extremities, sensory changes, lack of coordination, difficulty walking, frequent falls, dizziness, vertigo, confusion, Slurred speech present, difficulty communicating thoughts or seizure-like activity Psych: Denies: anxiety, depression, mood swings, panic attacks, hopelessness or irritability Endo: Denies: polyuria, polydipsia, tired all the time, cold intolerance, excessive sweating, flushing or heat intolerance Philippe/Lymph: Denies: easy bruising or easy bleeding All/Imm: Denies: tongue swelling, facial swelling or acute wheezing Medications/Allergies Home Medications ?Medication ?Instructions ?Recorded ?Confirmed ?Last Taken ?Type aspirin 81 mg tablet,delayed 81 mg PO QAM 11/15/19 04/03/25 04/03/25 07:00 History release (Adult Low Dose Aspirin) trazodone 100 mg tablet 100 mg PO BEDTIME #90 tabs 01/21/22 04/03/25 04/02/25 18:00 Rx alprazolam 0.5 mg tablet 0.5 mg PO BEDTIME PRN Anxiety 06/19/22 04/03/25 04/02/25 18:00 History ipratropium bromide 17 2 puff inhalation QAM 06/19/22 04/03/25 04/03/25 History mcg/actuation HFA aerosol inhaler (Atrovent HFA) allopurinol 100 mg tablet 100 mg PO BID #60 tabs 07/20/22 04/03/25 04/03/25 Rx rivaroxaban 20 mg tablet (Xarelto) 20 mg PO QAM #90 tabs 09/23/22 04/03/25 04/03/25 06:00 Rx potassium gluconate 595 mg (99 mg) 99 mg PO QAM 02/19/24 04/03/25 04/03/25 07:00 History tablet sacubitril 24 mg-valsartan 26 mg 1 tab PO BID #180 tabs 05/15/24 04/03/25 04/03/25 06:00 Rx tablet empagliflozin 10 mg tablet 10 mg PO DAILY #90 tabs 09/21/24 04/03/25 04/03/25 Rx (Jardiance) carvedilol 12.5 mg tablet See Rx Instructions .Route 09/28/24 04/03/25 04/03/25 Rx .COMPLEX #180 tabs atorvastatin 20 mg tablet 20 mg PO BEDTIME #90 tabs 11/27/24 04/03/25 04/02/25 18:00 Rx spironolactone 25 mg tablet See Rx Instructions .Route 12/28/24 04/03/25 04/03/25 07:00 Rx .COMPLEX #45 tabs torsemide 20 mg tablet 30 mg (1.5 x 20 mg) PO BID #270 03/12/25 04/03/25 04/03/25 Rx tabs Allergies Allergy/AdvReac Type Severity Reaction Status Date / Time diltiazem (From Cardizem) Allergy Unknown ADR/ALGY-Hy Verified 02/01/25 13:10 potension metolazone AdvReac Unknown Unknown Verified 02/01/25 13:10 PFSH Acute PFSH: Medical History (Updated 04/03/25 @ 15:48 by Casey Nam MD) Pacemaker Systolic CHF Dehydration Hypotensive episode COPD (chronic obstructive pulmonary disease) HTN (hypertension) (~08/01/24) Dyslipidemia Cardiomyopathy Atrial fibrillation s/p hybrid Maze (VATS) and atrial fibrillation ablation in Jun 2017 Surgical History (Updated 04/03/25 @ 15:46 by Casey Nam MD) S/P colon resection AICD (automatic cardioverter/defibrillator) present H/O removal of cyst thyroid, testicle H/O cardiac radiofrequency ablation H/O heart surgery Maze H/O umbilical hernia repair H/O circumcision H/O colonoscopy 3 yrs ago, Family History Father Myocardial infarct Mother Aneurysm Grandmother Cancer liver Other CAD (coronary artery disease) Denies family history of Diabetes Anesthesia complication Bleeding disorder Social History Smoking and tobacco/nicotine status: former use of tobacco/nicotine Quit status (tobacco/nicotine): has quit using Alcohol intake: current Alcohol intake frequency: holidays/special occasions only Substance/Drug Use: former Household members: family Marital status: Single Current occupational status: retired Vitals/I&O/Wt Last Vital Signs Temp 97.5 F L 05/27/25 11:31 Pulse 126 H 04/03/25 15:24 Resp 19 H 04/03/25 11:31 BP 109/85 04/03/25 15:24 Pulse Ox 92 04/03/25 15:24 O2 Del Method Room Air 04/03/25 13:45 04/03/25 04/03/25 04/03/25 06:59 14:59 22:59 Intake Total 600 / 600 Balance 600 / 600 Weight last 48 hrs Weight 136.078 kg Physical Exam Narrative: General: No acute distress, AO x3, pleasant HEENT: PERRLA, pupils bilaterally equal and reactive Chest: Normal vesicular breath sounds, decreased air entry with fine crackles present bilaterally in lower zone, equal good air entry bilaterally CVS: S1-S2 irregularly irregular, tachycardia, no gallops, no rubs Abdomen: Soft, nontender, no organomegaly, bowel sounds present Neuro: No focal deficits, no facial deformity, AO x3, power 5/5 in all limbs Data 04/03/25 11:40 04/03/25 11:40 A&P Assessment and plan (1) Atrial fibrillation with RVR: Continue with amiodarone drip. Given elevated heart rate we will also start him digoxin load with 600 mcg one-time followed by 10 mcg every 6 hours for 2 doses. Change carvedilol to metoprolol 25 mg twice daily for now. At home dose of Xarelto. (2) Systolic CHF: Acute on chronic decompensated systolic congestive heart failure. Last known EF from 2023 showed an EF of 35% with biatrial enlargement. Strict input and output charting, daily weights. Fluid restriction to 1500 cc. IV Lasix 40 mg one-time. Patient takes torsemide 30 mg twice daily at home. Daily weights. Monitor electrolytes and for contraction alkalosis. (3) Cardiomyopathy: (4) HTN (hypertension): Goal blood pressure less than 140/90 mmHg. Continue home dose of Entresto. Switching to metoprolol as above. (5) COPD (chronic obstructive pulmonary disease): (6) AICD (automatic cardioverter/defibrillator) present: Plan Full code Cardiac diet, fluid restriction Xarelto will be sufficient for DVT prophylaxis Protonix for PUD prophylaxis. PDMP PDMP Reviewed: Not Reviewed Attestations Medical Necessity Statement*: Admission for more than 2 midnights for management of A-fib with RVR with systolic congestive decompensated heart failure Diagnoses Atrial fibrillation with RVR I48.91 Acute on chronic systolic congestive heart failure I50.23 Heart failure chronicity: acute on chronic Other cardiomyopathy I42.8 Cardiomyopathy type: other Essential hypertension I10 Hypertension type: essential hypertension Panlobular emphysema J43.1 COPD type: emphysema Emphysema type: panlobular AICD (automatic cardioverter/defibrillator) present Z95.810
--- NOTE | 2025-04-03 17:13 | ECG_ITS ---
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
[2025-04-03 17:32] LABS: Glucose Point of Care 140 mg/dL (70-110)
[2025-04-03] MEDS: allopurinol 100 mg Tablet PO (17:54)
[2025-04-03] MEDS: sacubitril/valsartan 24-26 mg Tablet 1 EACH PO (17:54)
[2025-04-03] MEDS: docusate sodium 100 mg Capsule PO (17:54)
[2025-04-03 18:12] LABS: Troponin 5 6HR 71.95 ng/L (0-15); Troponin 5 6HR Delta -13.05 ng/L (0-12)
[2025-04-03] MEDS: atorvastatin 40 mg Tablet 20 MG PO (20:15)
[2025-04-03] MEDS: trazodone 100 mg Tablet PO (20:16)
[2025-04-03] MEDS: digoxin 250 mcg/ml INJ 2 mL 300 MCG IVP (20:16)
[2025-04-03] MEDS: metoprolol tartrate 25 mg Tablet PO (20:20)
[2025-04-04] VITALS (11 sets, daily range): BP systolic 91–164; BP diastolic 79–99; PULSE 101–137; RESP 16–26; TEMP 36.6–37; O2SAT 91–98; BMI 38.1
--- NOTE | 2025-04-04 00:05 | PC.NURSE ---
Contacted phsician due to elevated heart rate between 120-140 kong still on amiodarone drip. He ordered a bolus of amio, and IV magnesium and a magnesium serum. Confirmed that he wanted me to hang the magnesium before the lab came back and he said to hang it.
[2025-04-04] MEDS: amiodarone 150 MG/100 ML PREMIX 400 MG IV (00:52)
[2025-04-04] MEDS: magnesium sulfate premix 2 GM/50 ML PIGGYBACK IV (00:52)
[2025-04-04 01:16] LABS: Magnesium 2.2 mg/dL (1.7-2.3)
[2025-04-04] MEDS: digoxin 250 mcg/ml INJ 2 mL 300 MCG IVP (03:41)
[2025-04-04 04:48] LABS: Basophils # 0.1 10^3/uL (0.0-0.1); Basophils % 0.7 %; Eosinophils # 0.2 10^3/uL (0.0-0.8); Eosinophils % 1.6 %; Hematocrit 53.1 % (37-53); Lymphocytes # 2.9 10^3/uL (0.8-4.8); Lymphocytes % 25.6 %; Mean Corpuscular HGB Conc 32.6 g/dL (30-55); Mean Corpuscular Hemoglobin 32.3 pg (27-33); Mean Corpuscular Volume 99.3 fl (82-101); Mean Platelet Volume 11.1 fL (7.4-10.4); Monocytes # 1.1 10^3/uL (0.2-0.9); Monocytes % 9.9 %; Neutrophils # 7.02 10^3/uL (1.8-7.7); Neutrophils % 61.8 %; Nucleated Red Blood Cells % 0 %; Platelet Count 216 10^3/cmm (157-399); Red Blood Count 5.35 10^6/uL (3.85-5.65); Red Cell Distribution Width 14.4 % (12.1-15.1); White Blood Count 11.34 10^3/uL (3.29-11.43)
[2025-04-04 05:07] LABS: Chol HDL Ratio 3.58 mg/dL (1.0-5.00); Cholesterol 129 mg/dL (0-200); HDL Cholesterol 36 mg/dL (60-100); LDL Cholesterol Calculated 51 mg/dL (50-129); LDL HDL Ratio 1.42 RATIO (0.00-3.22); Triglycerides 212 mg/dL (0-150)
[2025-04-04 05:09] LABS: Alanine Aminotransferase 28 U/L (0-41); Albumin Level 3.8 g/dL (3.5-5.2); Alkaline Phosphatase 67 U/L (40-130); Anion Gap 16.8 (5-19); Aspartate Amino Transferase 25 U/L (0-40); Blood Urea Nitrogen 23 mg/dL (8-23); Calcium 9.2 mg/dL (8.5-10.5); Carbon Dioxide 28 mmol/L (22-29); Chloride 101 mmol/L (98-107); Creatinine Clr Calc Pharmacy 78.7002; Glomerular Filtration Rate 54.7 mL/min (90-130); Glucose 141 mg/dL (65-115); Magnesium 2.7 mg/dL (1.7-2.3); Osmolality Calculated 298 mOsm/kg (285-295); Phosphorus 3.5 mg/dL (2.5-4.5); Potassium 4.8 mmol/L (3.5-5.1); Sodium 141 mmol/L (136-145); Total Bilirubin 0.9 mg/dL (0.15-1.2); Total Protein 6.8 g/dL (6.6-8.7)
[2025-04-04] MEDS: rivaroxaban 10 mg Tablet 20 MG PO (05:16)
[2025-04-04] MEDS: aspirin 81 mg EC Tablet PO (05:16)
[2025-04-04 05:28] LABS: Folate Level > 20.0 ng/mL (4.5-32.2)
[2025-04-04] MEDS: metoprolol tartrate 25 mg Tablet PO ×2 (07:14→10:10)
[2025-04-04] MEDS: sacubitril/valsartan 24-26 mg Tablet 1 EACH PO ×2 (07:14→17:12)
[2025-04-04] MEDS: allopurinol 100 mg Tablet PO ×2 (07:15→17:12)
--- NOTE | 2025-04-04 09:59 | PC.CHAP ---
Pastoral Care Encounter/Spiritual Assessment Type of Contact [] Declined search engine optimization consultant visit [] Patient/Family/Request visit [] Outpatient visit [] Follow-up visit [] Physician referral [] Code/Alert [x] Routine visit [] Staff referral [] Actively dying [] Patient sleeping [] Family support [] [] Out of room [] Palliative care [] [] Receiving care in room [] Pre-surgical visit [] Trauma [] Long length of stay [] ICU visit [] Other: Relational/Emotional Strength [x] Patient feels connected with others/family/visitors/staff [] Distress [] Loneliness/isolation [] Abandonment Spirituality of Patient [x] Person of [place] [] Attends Muslim of their [place] [x] Believes in Prayer [] Reads Bible or Roman Catholic materials [] There are Spiritual issues to be addressed Bosom Presser Interventions [x] Prayer [x] Active listening [] Non-anxious presence [x] Spiritual/emotional support [] Crisis/trauma care [] Spiritual counseling [] Bereavement support [] Provided bereavement packet [] Provided Bible/devotional materials [] Provided toy/stuffed animal, coloring book to patient or family member [] Provided Communion [] Anointing/[facility] [] Salvation [x] Completed spiritual assessment [] Other: Impact on Illness or Injury [] Angry [] Fearful [] Anxious [] Often cries [] Exhaustion [] Unable to work [] Unable to attend oriental orthodox [] Unable to walk/stand [] Unable to read [] Unable to drive [] Unable to eat/drink [] Unable to sleep [] Unable to be with family [] Patient intubated [] Other: Summary Time spent with patient 5 min
--- NOTE | 2025-04-04 11:29 | P.PN_ITS ---
Subjective 2 Subjective: No acute events overnight. Patient states he is feeling better. States breathing is better and does not feel fluttering in his chest anymore. Denies any nausea, vomiting, headache. Has remained hemodynamically stable and afebrile. Currently on amiodarone drip of 0.5. Vitals/I&O/Wt Last Vital Signs Temp 97.8 F 04/04/25 07:29 Pulse 115 H 04/04/25 10:53 Resp 26 H 04/04/25 10:14 BP 113/79 04/04/25 10:53 Pulse Ox 91 04/04/25 10:14 O2 Del Method Room Air 04/04/25 10:14 04/03/25 04/04/25 04/04/25 22:59 06:59 14:59 Intake Total 320 / 920 150 / 1070 556.706 / 556.706 Output Total 910 / 910 300 / 1210 Balance -590 / 10 -150 / -140 556.706 / 556.706 Weight last 48 hrs Weight 134.717 kg Weight 136.078 kg Weight 136.078 kg Physical Exam 2 Narrative: General: No acute distress, AO x3, pleasant HEENT: PERRLA, pupils bilaterally equal and reactive Chest: Normal vesicular breath sounds, decreased air entry with fine crackles present bilaterally in lower zone, equal good air entry bilaterally CVS: S1-S2 irregularly irregular, tachycardia, no gallops, no rubs Abdomen: Soft, nontender, no organomegaly, bowel sounds present Neuro: No focal deficits, no facial deformity, AO x3, power 5/5 in all limbs Data 04/04/25 04:06 04/04/25 04:06 A&P Assessment and plan (1) Atrial fibrillation with RVR: Continue with amiodarone drip. Received digoxin load overnight. Will start on oral digoxin from tomorrow. Heart rate still elevated. Increase metoprolol to 50 mg twice daily. Continue with home dose of Xarelto. (2) Systolic CHF: Acute on chronic decompensated systolic congestive heart failure. Last known EF from 2023 showed an EF of 35% with biatrial enlargement. Strict input and output charting, daily weights. Fluid restriction to 1500 cc. Continue with aggressive IV diuresis. Lasix 40 mg twice daily. Patient takes torsemide 30 mg twice daily at home. Daily weights. Monitor electrolytes and for contraction alkalosis. Repeat BMP in afternoon. Replace electrolytes accordingly. (3) Cardiomyopathy: History of nonischemic cardiomyopathy. Last cardiac angiogram back in 2020 showed no significant disease in coronaries. (4) HTN (hypertension): Goal blood pressure less than 140/90 mmHg. Continue home dose of Entresto. Switching to metoprolol as above. (5) COPD (chronic obstructive pulmonary disease): (6) AICD (automatic cardioverter/defibrillator) present: Will interrogate ICD. Plan Elevated troponin: Trending down in 6-hour. Most likely demand ischemia. Patient denies any active chest pain. Continue with home dose of aspirin, statin, beta-enrrique as above. Full code Cardiac diet, fluid restriction Xarelto will be sufficient for DVT prophylaxis Protonix for PUD prophylaxis. PDMP PDMP Reviewed: Not Reviewed Attestations 2 Medical Necessity Statement*: Requires further hospitalization for management of A-fib with RVR, acute decompensated systolic congestive heart failure. Diagnoses Atrial fibrillation with RVR I48.91 Acute on chronic systolic congestive heart failure I50.23 Heart failure chronicity: acute on chronic Other cardiomyopathy I42.8 Cardiomyopathy type: other Essential hypertension I10 Hypertension type: essential hypertension Panlobular emphysema J43.1 COPD type: emphysema Emphysema type: panlobular AICD (automatic cardioverter/defibrillator) present Z95.810
[2025-04-04 14:38] LABS: Bilirubin Urine Negative (Negative); Blood Urine Negative (Negative); Glucose Urine UA 1+ (Normal); Ketones Urine Negative (Negative); Leukocyte Esterase Urine Negative (Negative); Nitrate Urine Negative (Negative); Protein Urine Trace (Negative); Specific Gravity, Urine 1.029 (1.005-1.030); Urine Appearance Clear (CLEAR); Urine Color Yellow (Yellow)
[2025-04-04 14:44] LABS: Add Urine Microscopic? YES; Bacteria Urine None Seen /hpf; Hyaline Casts Urine 0-4 /lpf; RBC Urine 0-2 /hpf (0-2); Squamous Epithelial Cell Urine 0-5 /hpf (0-5); WBC Urine 0-5 /hpf (0-5)
[2025-04-04 16:13] LABS: Anion Gap 17.9 (5-19); Blood Urea Nitrogen 22 mg/dL (8-23); Calcium 8.9 mg/dL (8.5-10.5); Carbon Dioxide 26 mmol/L (22-29); Chloride 102 mmol/L (98-107); Creatinine Clr Calc Pharmacy 101.7734; Glomerular Filtration Rate 74.1 mL/min (90-130); Glucose 160 mg/dL (65-115); Osmolality Calculated 299 mOsm/kg (285-295); Potassium 4.9 mmol/L (3.5-5.1); Sodium 141 mmol/L (136-145)
[2025-04-04] MEDS: FUROsemide 10 mg/mL SDV 4mL 40 MG IVP (17:12)
[2025-04-04] MEDS: pantoprazole 40 mg SDV IVP (17:12)
[2025-04-04] MEDS: digoxin 250 mcg/ml INJ 2 mL IVP (18:15)
[2025-04-04] MEDS: atorvastatin 40 mg Tablet 20 MG PO (20:42)
[2025-04-04] MEDS: trazodone 100 mg Tablet PO (20:42)
[2025-04-04] MEDS: metoprolol tartrate 25 mg Tablet 50 MG PO (20:42)
[2025-04-04] MEDS: ALPRAZolam 0.5 mg Tablet PO (22:08)
[2025-04-05] VITALS (9 sets, daily range): BP systolic 102–132; BP diastolic 75–95; PULSE 81–127; RESP 18–29; TEMP 36.6–36.9; O2SAT 91–96
[2025-04-05 04:42] LABS: Basophils # 0.1 10^3/uL (0.0-0.1); Basophils % 0.6 %; Eosinophils # 0.2 10^3/uL (0.0-0.8); Hematocrit 52.7 % (37-53); Lymphocytes # 2.1 10^3/uL (0.8-4.8); Lymphocytes % 20.6 %; Mean Corpuscular HGB Conc 32.4 g/dL (30-55); Mean Corpuscular Hemoglobin 31.8 pg (27-33); Mean Platelet Volume 11.2 fL (7.4-10.4); Monocytes # 1.1 10^3/uL (0.2-0.9); Monocytes % 10.2 %; Neutrophils # 6.83 10^3/uL (1.8-7.7); Neutrophils % 66.4 %; Nucleated Red Blood Cells % 0 %; Platelet Count 178 10^3/cmm (157-399); Red Blood Count 5.38 10^6/uL (3.85-5.65); Red Cell Distribution Width 14.3 % (12.1-15.1); White Blood Count 10.29 10^3/uL (3.29-11.43)
[2025-04-05 05:05] LABS: Alanine Aminotransferase 29 U/L (0-41); Albumin Level 3.7 g/dL (3.5-5.2); Alkaline Phosphatase 64 U/L (40-130); Blood Urea Nitrogen 23 mg/dL (8-23); Calcium 9.4 mg/dL (8.5-10.5); Carbon Dioxide 22 mmol/L (22-29); Chloride 102 mmol/L (98-107); Creatinine Clr Calc Pharmacy 101.7734; Glomerular Filtration Rate 74.1 mL/min (90-130); Glucose 134 mg/dL (65-115); Magnesium 2.3 mg/dL (1.7-2.3); Osmolality Calculated 294 mOsm/kg (285-295); Phosphorus 3.9 mg/dL (2.5-4.5); Sodium 139 mmol/L (136-145); Total Bilirubin 0.9 mg/dL (0.15-1.2); Total Protein 6.7 g/dL (6.6-8.7)
[2025-04-05 05:12] LABS: Anion Gap 19.5 (5-19); Aspartate Amino Transferase 47 U/L (0-40); Potassium 4.5 mmol/L (3.5-5.1)
[2025-04-05] MEDS: aspirin 81 mg EC Tablet PO (05:28)
[2025-04-05] MEDS: rivaroxaban 10 mg Tablet 20 MG PO (05:28)
[2025-04-05] MEDS: metoprolol tartrate 25 mg Tablet 50 MG PO ×2 (08:17→21:24)
[2025-04-05] MEDS: sacubitril/valsartan 24-26 mg Tablet 1 EACH PO ×2 (08:17→17:09)
[2025-04-05] MEDS: digoxin 250 mcg Tablet PO (08:18)
[2025-04-05] MEDS: FUROsemide 10 mg/mL SDV 4mL 40 MG IVP ×3 (08:18→21:24)
[2025-04-05] MEDS: allopurinol 100 mg Tablet PO ×2 (08:18→17:09)
[2025-04-05] MEDS: amiodarone 200 mg Tablet 400 MG PO ×2 (09:51→17:10)
--- NOTE | 2025-04-05 09:57 | PC.NURSE ---
Dr Jean ordered to stop Crow caal.
--- NOTE | 2025-04-05 09:58 | PC.NURSE ---
Nursing entered patients room and Kourtney Carrillo NP was in room with patient. Kourtney asked what I was going to give. Kourtney ask nursing to wait about an hour after giving the PO amio to stop the amio drip. Also Kourtney is aware that the patient refused to take the metolazone due to having a reaction the last time he took it.
--- NOTE | 2025-04-05 10:30 | P.CONIM_ITS ---
<Statement entered by Fernandez Hanley M.D - 04/07/25 14:11> Patient was evaluated and cared for in conjunction with an advanced practice practitioner.? I personally examined the patient and reviewed the chart and all pertinent data including imaging, telemetry, and laboratory results.? I discussed the patient in detail with the advanced practice practitioner.? Please see? their note for complete consult note, testing results and agreed upon plan of care for the patient. Patient is in A-fib with RVR. If heart rate not controlled with rate controlling medications, may consider performing cardioversion. Continue diuresis. Close I&O's. GENERAL: Patient is alert, awake and oriented x3. HEART: Irregularly irregular, tachycardia LUNGS: Diminished air entry bilaterally CENTRAL NERVOUS SYSTEM: Grossly nonfocal. EXTREMITIES: Lower extremities without edema bilaterally. Providers/Reason For Consult 2 Consulting Physician/Specialty*: Dr. Hanley, cardiology Reason for Consult*: Atrial fibrillation with RVR Requesting Physician: Casey Nam MD Attending Physician: Casey Nam MD Primary Care Provider: Wilman Larios MD History of Present Illness History of Present Illness Yayo Rivera is a 70 year old male with past medical history of systolic CHF, atrial fibrillation status post hybrid Maze (VATS), status post atrial fibrillation ablation June 2017, 3 of hepatitis C treated successfully, nonischemic cardiomyopathy status post ICD implant 05/05/2021, history of methamphetamine use quit many years ago. Most recent coronary angiogram 2020. Limited echo and August of last year showed LVEF 36% no gross valvular abnormality. He presented to the emergency room 04/03/2025 with worsening shortness of breath, orthopnea over the last few days, noted to have atrial fibrillation with RVR and was started on amiodarone infusion he has an allergy to diltiazem. He was loaded with digoxin by the hospitalist service. Admission BNP 9950, today is down to 7410. Review of Systems 2 Card: Reports: palpitations, irregular heart rhythm, dyspnea on exertion and orthopnea; Denies: chest pain, lightheadedness, syncope, pre-syncope or leg pain with exertion Resp: Reports: dyspnea; Denies: productive cough or wheezing GI: Reports: bloating; Denies: hematochezia : Denies: hematuria Philippe/Lymph: Denies: easy bleeding Medications/Allergies Home Medications ?Medication ?Instructions ?Recorded ?Confirmed ?Last Taken ?Type aspirin 81 mg tablet,delayed 81 mg PO QAM 11/15/1904/03/25 07:00 History release (Adult Low Dose Aspirin) trazodone 100 mg tablet 100 mg PO BEDTIME #90 tabs 0 01/21/22 04/03/25 04/02/25 18:00 Rx alprazolam 0.5 mg tablet 0.5 mg PO BEDTIME PRN Anxiet y 06/19/22 04/03/25 04/02/25 18:00 History ipratropium bromide 17 2 puff inhalation QAM 04/03/25 04/03/25 History mcg/actuation HFA aerosol inhaler (Atrovent HFA) allopurinol 100 mg tablet 100 mg PO BID #60 tabs 07/2004/03/25 04/03/25 Rx rivaroxaban 20 mg tablet (Xarelto) 20 mg PO QAM #90 ta bs 09/23/22 04/03/25 04/03/25 06:00 Rx potassium gluconate 595 mg (99 mg) 99 mg PO QAM 04/03/25 04/03/25 07:00 History tablet sacubitril 24 mg-valsartan 26 mg 1 tab PO BID #180 tab s 05/15/24 04/03/25 04/03/25 06:00 Rx tablet empagliflozin 10 mg tablet 10 mg PO DAILY #90 tabs 04/03/25 04/03/25 Rx (Jardiance) carvedilol 12.5 mg tablet See Rx Instructions .Route 1 11/28/23 04/03/25 04/03/25 Rx .COMPLEX #180 tabs atorvastatin 20 mg tablet 20 mg PO BEDTIME #90 tabs 04/03/25 04/02/25 18:00 Rx spironolactone 25 mg tablet See Rx Instructions .Route 12/28/24 04/03/25 04/03/25 07:00 Rx .COMPLEX #45 tabs torsemide 20 mg tablet 30 mg (1.5 x 20 mg) PO BID # 270 03/12/25 04/03/25 04/03/25 Rx tabs Allergies Allergy/AdvReac Type Severity Reaction Status Date / Time diltiazem (From Cardizem) Allergy Unknown ADR/ALGY-Hy Verified 02/01/25 13:10 potension metolazone AdvReac Unknown Unknown Verified 02/01/25 13:10 Current Medications Generic Name Dose Route Start Last Admin Trade Name Freq PRN Reason Stop Dose Admin Allopurinol 100 mg 04/03/25 18:00 04/05/25 17:09 Allopurinol 100 Mg Tablet PO 100 mg BID MORA Administration Alprazolam 0.5 mg 04/03/25 14:44 04/04/25 22:08 Alprazolam 0.5 Mg Tablet PO 0.5 mg BEDTIME PRN Administration ANXIETY Amiodarone HCl 400 mg 04/05/25 09:15 04/05/25 17:10 Amiodarone 200 Mg Tablet PO 400 mg BID MORA Administration Aspirin 81 mg 04/04/25 06:00 04/05/25 05:28 Aspirin 81 Mg Ec Tablet PO 81 mg QAM MORA Administration Atorvastatin Calcium 20 mg 04/03/25 21:00 04/04/25 20:42 Atorvastatin 40 Mg Tablet PO 20 mg BEDTIME MORA Administration Digoxin 250 mcg 04/05/25 09:00 04/05/25 08:18 Digoxin 250 Mcg Tablet PO 250 mcg DAILY MORA Administration Docusate Sodium 100 mg 04/03/25 18:00 04/05/25 17:10 Docusate Sodium 100 Mg Capsule PO 100 mg BID MORA Administration Furosemide 40 mg 04/05/25 14:00 04/05/25 14:40 Furosemide 10 Mg/Ml Sdv 4ml IVP 40 mg Q8H MORA Administration Magnesium Hydroxide 30 ml 04/05/25 11:45 04/05/25 11:46 Magnesium Hydroxide 30 Ml Udc PO 30 ml DAILY MORA Administration Protocol Metoprolol Tartrate 50 mg 04/04/25 21:00 04/05/25 08:17 Metoprolol Tartrate 25 Mg Tablet PO 50 mg BID@0900,2100 MORA Administration Pantoprazole Sodium 40 mg 04/03/25 14:44 04/05/25 17:09 Pantoprazole 40 Mg Sdv IVP 40 mg Q24H MORA Administration Rivaroxaban 20 mg 04/04/25 06:00 04/05/25 05:28 Rivaroxaban 10 Mg Tablet PO 20 mg QAM MORA Administration Sacubitril/Valsartan 1 each 04/03/25 18:00 04/05/25 17:09 Sacubitril/Valsartan 24-26 Mg Tablet PO 1 each BID MORA Administration Trazodone HCl 100 mg 04/03/25 21:00 04/04/25 20:42 Trazodone 100 Mg Tablet PO 100 mg BEDTIME MORA Administration PFSH Acute 2 PFSH: Medical History (Updated 04/04/25 @ 11:33 by Casey Nam MD) Pacemaker Systolic CHF Dehydration Hypotensive episode COPD (chronic obstructive pulmonary disease) HTN (hypertension) (~08/01/24) Dyslipidemia Cardiomyopathy Atrial fibrillation s/p hybrid Maze (VATS) and atrial fibrillation ablation in Jun 2017 Surgical History (Updated 04/03/25 @ 15:46 by Casey Nam MD) S/P colon resection AICD (automatic cardioverter/defibrillator) present H/O removal of cyst thyroid, testicle H/O cardiac radiofrequency ablation H/O heart surgery Maze H/O umbilical hernia repair H/O circumcision H/O colonoscopy 3 yrs ago, Family History Father Myocardial infarct Mother Aneurysm Grandmother Cancer liver Other CAD (coronary artery disease) Denies family history of Diabetes Anesthesia complication Bleeding disorder Social History Smoking and tobacco/nicotine status: former use of tobacco/nicotine Quit status (tobacco/nicotine): has quit using Alcohol intake: current Alcohol intake frequency: holidays/special occasions only Substance/Drug Use: former Household members: family Marital status: Single Current occupational status: retired Vitals/I&O/Wt Last Vital Signs Temp 98.2 F 04/05/25 15:37 Pulse 110 H 04/05/25 15:37 Resp 22 H 04/05/25 15:37 BP 114/75 04/05/25 15:37 Pulse Ox 96 04/05/25 15:37 O2 Del Method Room Air 04/05/25 15:37 04/05/25 04/05/25 04/05/25 06:59 14:59 22:59 Intake Total 969.177 / 969.177 Output Total 400 / 1300 425 / 425 Balance -400 / -183.294 544.177 / 544.177 Weight last 48 hrs Weight 297 lb Weight 297 lb Physical Exam 2 Const: COMMON NORMALS: no acute distress and patient oriented x3 Chest: COMMONS NORMALS: normal inspection of the chest and normal palpation of entire chest wall CHEST: Yes Symmetrical chest wall rise Resp: COMMON NORMALS: normal respiratory effort, No retractions, No use of accessory muscles and clear to auscultation bilaterally EFFORT & INSPECTION: Yes symmetric chest movement AUSCULTATION: clear to auscultation bilaterally Cardio: COMMON NORMALS: S1 normal heart sound present, S2 normal heart sound present, No gallops present (Cardio), No clicks present (Cardio), No murmurs present (Cardio) and No rub (Cardio) RHYTHM: abnormal rhythm irregularly irregular HEART SOUNDS: S1 normal heart sound present and S2 normal heart sound present PERIPHERAL PULSES: radial pulses present, posterior tibial pulses present and dorsalis pedis present GI: INSPECTION: Yes abdominal distension Neuro: COMMON NORMALS: patient oriented x3 and moves all extremities Psych: COMMON NORMALS: mental status grossly normal and cooperative Data 04/05/25 04:10 04/05/25 16:48 A&P Assessment and plan (1) Atrial fibrillation with RVR: (2) AICD (automatic cardioverter/defibrillator) present: (3) Systolic CHF: (4) CAD (coronary artery disease): Plan Continues in A-fib RVR despite loading with digoxin and amiodarone infusion. He was transitioned to oral amiodarone by the hospitalist. We had a discussion regarding metolazone, he was very hesitant to take but did agree to take a dose and be monitored with labs and telemetry. He will have better rate control when he is less volume overloaded. Continue amiodarone 400 twice daily and digoxin 250 mcg daily. We also discussed possibility of Lasix drip if either metolazone is not effective or he is unwilling to take further doses. Interrogation of the pacemaker shows increased OptiVol index, high nighttime heart rates and high ventricular rates in the 140-160 bpm range. No other arrhythmias noted. No ventricular pacing. Once ventricular rate is better controlled we can obtain a echocardiogram to evaluate LV function. PDMP PDMP Reviewed: Not Reviewed Consult Attestations 2 Medical Necessity Statement: CHF exacerbation, atrial fibrillation with RVR Coding Level of Care Code Acute Code for Chg Fwd Diagnoses Atrial fibrillation with RVR I48.91 AICD (automatic cardioverter/defibrillator) present Z95.810 Acute on chronic systolic congestive heart failure I50.23 Heart failure chronicity: acute on chronic Coronary artery disease involving [place] coronary artery of [place] heart without angina pectoris I25.10 Coronary Disease-Associated Artery/Lesion type: [place] artery [place] vs. transplanted heart: [place] heart Associated angina: without angina
[2025-04-05] MEDS: metOLazone 5 MG Tablet PO (11:15)
[2025-04-05 11:27] LABS: NT Pro B Type Natriuretic Pept 7410 pg/mL (0-125)
--- NOTE | 2025-04-05 11:31 | P.PN_ITS ---
Subjective 2 Subjective: No acute events overnight. Patient has remained hemodynamically stable. Heart rates are better controlled but still going up to 110s on exertion. States feeling better. Denies any nausea, vomiting. States breathing is better. Vitals/I&O/Wt Last Vital Signs Temp 98.0 F 04/05/25 11:25 Pulse 103 H 04/05/25 11:25 Resp 25 H 04/05/25 11:25 BP 112/86 04/05/25 11:25 Pulse Ox 91 04/05/25 11:25 O2 Del Method Room Air 04/05/25 11:25 04/04/25 04/05/25 04/05/25 22:59 06:59 14:59 Intake Total 440 / 1116.706 609.177 / 609.177 Output Total 600 / 900 400 / 1300 250 / 250 Balance -160 / 216.706 -400 / -183.294 359.177 / 359.177 Weight last 48 hrs Weight 134.717 kg Weight 134.717 kg Weight 136.078 kg Physical Exam 2 Narrative: General: No acute distress, AO x3, pleasant HEENT: PERRLA, pupils bilaterally equal and reactive Chest: Normal vesicular breath sounds, decreased air entry with fine crackles present bilaterally in lower zone, equal good air entry bilaterally CVS: S1-S2 irregularly irregular, tachycardia, no gallops, no rubs Abdomen: Soft, nontender, no organomegaly, bowel sounds present Neuro: No focal deficits, no facial deformity, AO x3, power 5/5 in all limbs Data 04/05/25 04:10 04/05/25 04:10 A&P Assessment and plan (1) Atrial fibrillation with RVR: Heart rate better controlled but still elevated. Continue with amiodarone. Switch to 40 mg twice daily. Discontinue IV amiodarone drip. Continue with digoxin 250 mcg oral daily, metoprolol 50 mg twice daily. Continue with home dose Xarelto. As heart rate continues to remain slightly elevated most likely in setting of congestive heart failure for now we will consult cardiology for further recommendations. Patient is allergic to Cardizem with hypotension. (2) Systolic CHF: Acute on chronic decompensated systolic congestive heart failure. Last known EF from 2023 showed an EF of 35% with biatrial enlargement. Strict input and output charting, daily weights. Fluid restriction to 1500 cc. Continue with aggressive IV diuresis. Appreciate urine output. For now change the Lasix to 40 mg Q8 hourly. Give one-time dose of metolazone 5 mg oral daily. Monitor electrolytes aggressively. Repeat BMP in evening. (3) Cardiomyopathy: History of nonischemic cardiomyopathy. Last cardiac angiogram back in 2020 showed no significant disease in coronaries. (4) HTN (hypertension): Goal blood pressure less than 140/90 mmHg. Continue home dose of Entresto. Switching to metoprolol as above. (5) COPD (chronic obstructive pulmonary disease): (6) AICD (automatic cardioverter/defibrillator) present: Will interrogate ICD. Plan Elevated troponin: Trending down in 6-hour. Most likely demand ischemia. Patient denies any active chest pain. Continue with home dose of aspirin, statin, beta-enrrique as above. Full code Cardiac diet, fluid restriction Xarelto will be sufficient for DVT prophylaxis Protonix for PUD prophylaxis. PDMP PDMP Reviewed: Not Reviewed Attestations 2 Medical Necessity Statement*: Requires further hospitalization for management of hypoxia in setting of acute decompensated systolic congestive heart failure, A-fib with RVR Diagnoses Atrial fibrillation with RVR I48.91 Acute on chronic systolic congestive heart failure I50.23 Heart failure chronicity: acute on chronic Other cardiomyopathy I42.8 Cardiomyopathy type: other Essential hypertension I10 Hypertension type: essential hypertension Panlobular emphysema J43.1 COPD type: emphysema Emphysema type: panlobular AICD (automatic cardioverter/defibrillator) present Z95.810
[2025-04-05] MEDS: magnesium hydroxide 30 mL UDC PO (11:46)
[2025-04-05] MEDS: pantoprazole 40 mg SDV IVP (17:09)
[2025-04-05] MEDS: docusate sodium 100 mg Capsule PO (17:10)
[2025-04-05 17:14] LABS: Blood Urea Nitrogen 27 mg/dL (8-23); Calcium 9.4 mg/dL (8.5-10.5); Carbon Dioxide 25 mmol/L (22-29); Chloride 100 mmol/L (98-107); Creatinine Clr Calc Pharmacy 92.5212; Glomerular Filtration Rate 66.4 mL/min (90-130); Glucose 146 mg/dL (65-115); Osmolality Calculated 296 mOsm/kg (285-295); Sodium 139 mmol/L (136-145)
[2025-04-05 17:36] LABS: Anion Gap 18.5 (5-19); Potassium 4.5 mmol/L (3.5-5.1)
[2025-04-05] MEDS: atorvastatin 40 mg Tablet 20 MG PO (21:24)
[2025-04-05] MEDS: ALPRAZolam 0.5 mg Tablet PO (21:24)
[2025-04-05] MEDS: trazodone 100 mg Tablet PO (21:24)
[2025-04-06 03:16] LABS: Basophils # 0.1 10^3/uL (0.0-0.1); Basophils % 0.6 %; Eosinophils # 0.2 10^3/uL (0.0-0.8); Eosinophils % 2.4 %; Hematocrit 52.5 % (37-53); Lymphocytes # 2.1 10^3/uL (0.8-4.8); Mean Corpuscular Hemoglobin 32.2 pg (27-33); Mean Corpuscular Volume 97.8 fl (82-101); Mean Platelet Volume 11.3 fL (7.4-10.4); Monocytes % 10.2 %; Neutrophils # 6.61 10^3/uL (1.8-7.7); Neutrophils % 65.6 %; Nucleated Red Blood Cells % 0 %; Platelet Count 210 10^3/cmm (157-399); Red Blood Count 5.37 10^6/uL (3.85-5.65); Red Cell Distribution Width 14.3 % (12.1-15.1); White Blood Count 10.07 10^3/uL (3.29-11.43)
[2025-04-06 03:43] LABS: Alanine Aminotransferase 31 U/L (0-41); Albumin Level 3.9 g/dL (3.5-5.2); Alkaline Phosphatase 70 U/L (40-130); Anion Gap 16.9 (5-19); Aspartate Amino Transferase 38 U/L (0-40); Blood Urea Nitrogen 31 mg/dL (8-23); Calcium 9.7 mg/dL (8.5-10.5); Carbon Dioxide 29 mmol/L (22-29); Chloride 100 mmol/L (98-107); Creatinine Clr Calc Pharmacy 78.2872; Globulin 3.1 g/dL (1.3-4.6); Glomerular Filtration Rate 54.7 mL/min (90-130); Glucose 132 mg/dL (65-115); Magnesium 2.3 mg/dL (1.7-2.3); Osmolality Calculated 300 mOsm/kg (285-295); Phosphorus 4.3 mg/dL (2.5-4.5); Potassium 4.9 mmol/L (3.5-5.1); Sodium 141 mmol/L (136-145); Total Bilirubin 1.3 mg/dL (0.15-1.2)
[2025-04-06 04:00] VITALS: BP 128/82; PULSE 109; RESP 27; TEMP 37.1; O2SAT 96
[2025-04-06] MEDS: aspirin 81 mg EC Tablet PO (05:43)
[2025-04-06] MEDS: rivaroxaban 10 mg Tablet 20 MG PO (05:43)
[2025-04-06] MEDS: FUROsemide 10 mg/mL SDV 4mL 40 MG IVP (05:43)
[2025-04-06 08:00] VITALS: BP 118/79; PULSE 102; RESP 18; TEMP 36.6
--- NOTE | 2025-04-06 08:51 | P.DS_ITS ---
Discharge Providers Date of Admission: 04/03/25 13:10 Date of Discharge: April 06, 2025 Attending Provider at Admission: Casey Nam MD Attending Provider at Discharge: Casey Nam MD Consults: Cardiology: Dr. Hanley Primary Care Provider: Wilman Larios MD Diagnoses at Discharge Discharge Diagnosis (1) Atrial fibrillation with RVR: Status: Acute (2) AICD (automatic cardioverter/defibrillator) present: Status: Acute (3) Systolic CHF: Status: Acute Qualifiers: Heart failure chronicity: acute on chronic Qualified Code(s): I50.23 - Acute on chronic systolic (congestive) heart failure (4) CAD (coronary artery disease): Status: Acute Qualifiers: Associated angina: without angina Coronary Disease-Associated Artery/Lesion type: [place] artery [place] vs. transplanted heart: [place] heart Qualified Code(s): I25.10 - Atherosclerotic heart disease of [place] coronary artery without angina pectoris Reason for Visit Reason for Visit: a fib, sob Hospital Course Hospital Course Yayo Rivera is a 70 year old male with past medical history of systolic congestive heart failure, atrial fibrillation with last echocardiogram from 2023 showing an EF of 26% with diffuse hypokinesia presents to the ER today because of palpitations and difficulty in breathing. Patient states he has been having worsening difficulty in breathing and not able to sleep at night for the last 3 days. States symptoms have been getting progressively worse and today he was not able to lie down ambulatory feeling in the chest so he presented to the ER. While here he was found to have A-fib with heart rate running 140s and started on amiodarone drip. Patient was admitted to the hospital for evaluation and management of congestive heart failure with A-fib with RVR. His heart rate was difficult to control. He started on amiodarone drip and was later requiring digoxin load. After amiodarone drip and digoxin load his heart rate were slightly better controlled. He was started on aggressive IV diuresis and he was overall around 3 L negative. Cardiology was consulted given difficulty in controlling his heart rate. Patient required further hospitalization for more diuresis and rate control though he decided to leave AGAINST MEDICAL ADVICE even though he was explained of the dangers in leaving early. Physical Exam Narrative: General: No acute distress, AO x3, agitated today morning HEENT: PERRLA, pupils bilaterally equal and reactive Chest: Normal vesicular breath sounds, decreased air entry with fine crackles present bilaterally in lower zone, equal good air entry bilaterally CVS: S1-S2 irregularly irregular, tachycardia, no gallops, no rubs Abdomen: Soft, nontender, no organomegaly, bowel sounds present Neuro: No focal deficits, no facial deformity, AO x3, power 5/5 in all limbs Discharge Data Studies Completed and Pending Completed Studies During Hospitalization Category Date Time Status XR chest 1V portable [id number] Stat Exams 04/03/25 11:26 Completed Pending at discharge Category Date Time Status BMP [Basic Metabolic Panel] Timed Lab 04/06/25 15:00 Ordered Complete Blood Count w/Auto AM LABS Lab 04/07/25 04:00 Ordered Comprehensive Metabolic Panel AM LABS Lab 04/07/25 04:00 Ordered DIG [Digoxin] Routine Lab 04/06/25 08:44 Ordered DIG [Digoxin] Routine Lab 04/06/25 08:44 Stop Req Radiology Impressions Chest X-Ray 04/03/25 11:26 IMPRESSION: Mild opacity at the left lung base. Laboratory Results WBC 10.07 10^3/uL (3.29-11.43) 04/06/25 02:40 RBC 5.37 10^6/uL (3.85-5.65) 04/06/25 02:40 Hgb 17.30 g/dL (11.27-16.99) H 04/06/25 02:40 Hct 52.5 % (37-53) 04/06/25 02:40 MCV 97.8 fl (82-101) 04/06/25 02:40 MCH 32.2 pg (27-33) 04/06/25 02:40 MCHC 33.0 g/dL (30-55) 04/06/25 02:40 RDW 14.3 % (12.1-15.1) 04/06/25 02:40 Plt Count 210 10^3/cmm (157-399) 04/06/25 02:40 MPV 11.3 fL (7.4-10.4) H 04/06/25 02:40 Neut % (Auto) 65.6 % 04/06/25 02:40 Lymph % (Auto) 21.0 % 04/06/25 02:40 [place] % (Auto) 10.2 % 04/06/25 02:40 Eos % (Auto) 2.4 % 04/06/25 02:40 Baso % (Auto) 0.6 % 04/06/25 02:40 Neut # (Auto) 6.61 10^3/uL (1.8-7.7) 04/06/25 02:40 Lymph # (Auto) 2.1 10^3/uL (0.8-4.8) 04/06/25 02:40 [place] # (Auto) 1.0 10^3/uL (0.2-0.9) H 04/06/25 02:40 Eos # (Auto) 0.2 10^3/uL (0.0-0.8) 04/06/25 02:40 Baso # (Auto) 0.1 10^3/uL (0.0-0.1) 04/06/25 02:40 Nucleated RBC % (auto) 0 % 04/06/25 02:40 Nucleated RBCs # 0.0 /100WBC 04/06/25 02:40 PT 20.40 SECONDS (12.1-14.9) H 04/03/25 11:40 INR 1.63 (0.8-1.2) H 04/03/25 11:40 Sodium 141 mmol/L (136-145) 04/06/25 02:40 Potassium 4.9 mmol/L (3.5-5.1) 04/06/25 02:40 Chloride 100 mmol/L (98-107) 04/06/25 02:40 Carbon Dioxide 29 mmol/L (22-29) 04/06/25 02:40 Anion Gap 16.9 (5-19) 04/06/25 02:40 BUN 31 mg/dL (8-23) H 04/06/25 02:40 Creatinine 1.3 mg/dL (0.7-1.2) H 04/06/25 02:40 GFR Calculation 54.7 mL/min (90-130) L 04/06/25 02:40 Glucose 132 mg/dL (65-115) H 04/06/25 02:40 POC Glucose 140 mg/dL (70-110) H 04/03/25 17:07 Estimat Average Glucose 160 04/03/25 11:40 Hemoglobin A1c 7.2 % (4.0-6.0) H 04/03/25 11:40 Calculated Osmolality 300 mOsm/kg (285-295) H 04/06/25 02:40 Calcium 9.7 mg/dL (8.5-10.5) 04/06/25 02:40 Phosphorus 4.3 mg/dL (2.5-4.5) 04/06/25 02:40 Magnesium 2.3 mg/dL (1.7-2.3) 04/06/25 02:40 Iron 123 ug/dL (59-158) 04/03/25 11:40 TIBC 323 mcg/dl 04/03/25 11:40 % Saturation 38.0 % (20-50) 04/03/25 11:40 Unsat Iron Binding 200 ug/dL (112-347) 04/03/25 11:40 Total Bilirubin 1.3 mg/dL (0.15-1.2) H 04/06/25 02:40 AST 38 U/L (0-40) 04/06/25 02:40 ALT 31 U/L (0-41) 04/06/25 02:40 Alkaline Phosphatase 70 U/L (40-130) 04/06/25 02:40 Troponin T Baseline 85 ng/L (0-15) H 04/03/25 11:40 Troponin T 120 Minute 68.47 ng/L (0-15) H 04/03/25 13:26 Delta Troponin T -16.53 ABS# (0-10) L 04/03/25 13:26 Troponin T Hi Sens 6Hr 71.95 ng/L (0-15) H 04/03/25 17:40 Troponin T Hi Sens 6Hr Delta -13.05 ng/L (0-12) L 04/03/25 17:40 NT-Pro-B Natriuret Pep 7410 pg/mL (0-125) H 04/05/25 04:10 Total Protein 7.0 g/dL (6.6-8.7) 04/06/25 02:40 Albumin 3.9 g/dL (3.5-5.2) 04/06/25 02:40 Globulin 3.1 g/dL (1.3-4.6) 04/06/25 02:40 Triglycerides 212 mg/dL (0-150) H 04/04/25 04:06 Cholesterol 129 mg/dL (0-200) 04/04/25 04:06 LDL Cholesterol, Calc 51 mg/dL (50-129) 04/04/25 04:06 HDL Cholesterol 36 mg/dL (60-100) L 04/04/25 04:06 LDL/HDL Ratio 1.42 RATIO (0.00-3.22) 04/04/25 04:06 Cholesterol/HDL Ratio 3.58 mg/dL (1.0-5.00) 04/04/25 04:06 Vitamin B12 512 pg/mL (232-1245) 04/03/25 11:40 Folate > 20.0 ng/mL (4.5-32.2) 04/04/25 04:06 TSH 1.45 uIU/mL (0.27-4.20) 04/03/25 11:40 Urine Color Yellow (Yellow) 04/04/25 13:30 Urine Appearance Clear (CLEAR) 04/04/25 13:30 Urine pH 6.0 (5-7) 04/04/25 13:30 Ur Specific [place] 1.029 (1.005-1.030) 04/04/25 13:30 Urine Protein Trace (Negative) A 04/04/25 13:30 Urine Glucose (UA) 1+ (Normal) H 04/04/25 13:30 Urine Ketones Negative (Negative) 04/04/25 13:30 Urine Blood Negative (Negative) 04/04/25 13:30 Urine Nitrate Negative (Negative) 04/04/25 13:30 Urine Bilirubin Negative (Negative) 04/04/25 13:30 Urine Urobilinogen 1.0 mg/dL (Negative) 04/04/25 13:30 Ur Leukocyte Esterase Negative (Negative) 04/04/25 13:30 Urine RBC 0-2 /hpf (0-2) 04/04/25 13:30 Urine WBC 0-5 /hpf (0-5) 04/04/25 13:30 Ur Squamous Epith Cells 0-5 /hpf (0-5) 04/04/25 13:30 Amorphous Sediment Not Reportable 04/04/25 13:30 Urine Bacteria None seen /hpf (NONE) 04/04/25 13:30 Hyaline Casts 0-4 /lpf H 04/04/25 13:30 Vitals Last Vital Signs Temp 97.8 F 04/06/25 08:00 Pulse 102 H 04/06/25 08:00 Resp 18 04/06/25 08:00 BP 118/79 04/06/25 08:00 Pulse Ox 96 04/06/25 04:00 O2 Del Method Room Air 04/06/25 04:00 Discharge Plan Discharge Patient Disposition: Left Against Medical Advice Condition: Stable Prescriptions: New amiodarone [Pacerone] 200 mg Tablet 200 mg PO BID Qty: 90 1RF Rx Instructions: 400 mg twice daily for 7 days,200 mg bid 7 days, 200 mg daily digoxin 250 mcg (0.25 mg) Tablet 250 mcg PO DAILY Qty: 30 0RF No Action aspirin [Adult Low Dose Aspirin] 81 mg tablet,delayed release (DR/EC) 81 mg PO QAM trazodone 100 mg tablet 100 mg PO BEDTIME Qty: 90 3RF allopurinol 100 mg tablet 100 mg PO BID Qty: 60 4RF Xarelto 20 mg tablet 20 mg PO QAM Qty: 90 1RF sacubitril-valsartan 24-26 mg tablet 1 tab PO BID Qty: 180 3RF Jardiance 10 mg tablet 10 mg PO DAILY Qty: 90 3RF carvedilol 12.5 mg tablet See Rx Instructions .ROUTE .COMPLEX Qty: 180 3RF Dose Instruction: Take 1 tablet by mouth twice daily Rx Instructions: Take 1 tablet by mouth twice daily atorvastatin 20 mg tablet 20 mg PO BEDTIME Qty: 90 3RF spironolactone 25 mg tablet See Rx Instructions .ROUTE .COMPLEX Qty: 45 1RF Dose Instruction: TAKE 1/2 (ONE-HALF) TABLET BY MOUTH ONCE DAILY IN THE MORNING Rx Instructions: TAKE 1/2 (ONE-HALF) TABLET BY MOUTH ONCE DAILY IN THE MORNING torsemide 20 mg tablet 30 mg PO BID Qty: 270 1RF alprazolam 0.5 mg tablet 0.5 mg PO BEDTIME PRN (Reason: Anxiety) Atrovent HFA 17 mcg/actuation HFA aerosol inhaler 2 puff INHALATION QAM potassium gluconate 595 mg (99 mg) Tablet 99 mg PO QAM Referrals: Wilman Larios MD [Primary Care Provider, Internal Medicine] - 04/13/25 9:40 am Patient Instructions: Atrial Fibrillation, Heart Failure (DC), Chronic Hypertension (DC), Opioid Safety Discharge Attestations Time Spent in Discharge Care*: greater than 30 min Specific Discharge Activities: educating patient, discussing with pcp/other providers, discussing with family preservation caseworker/social workers/dc planners, documenting/other paperwork and evaluating patient/reviewing data Status at Discharge: Cognitive status at discharge: cognitively intact , Behavioral status at discharge: cooperative and can be uncooperative , Functional status at discharge: independent ambulation , Overall status at discharge: patient is not back to baseline Quality Metrics Clinical Quality Measures [ No reported AMI, CVA or VTE this stay] Coding Level of Care Code 85310 Total time (in minutes) for Discharge: 65 Diagnoses Atrial fibrillation with RVR I48.91 AICD (automatic cardioverter/defibrillator) present Z95.810 Acute on chronic systolic congestive heart failure I50.23 Heart failure chronicity: acute on chronic Coronary artery disease involving [place] coronary artery of [place] heart without angina pectoris I25.10 Associated angina: without angina Coronary Disease-Associated Artery/Lesion type: [place] artery [place] vs. transplanted heart: [place] heart
[2025-04-06 09:20] LABS: Digoxin 1.7 ng/mL (0.6-1.2)
--- NOTE | 2025-04-06 10:01 | PC.NURSE ---
Patient very agitated upon entering the room. Patient states I'm tired, I'm leaving, I'm going home. These doctors don't listen to me, my heart rate is as good as it is going to get. I havent slept in 5 days because of this bed. I'm going home.. Patient was educated regarding the risk of injury and possible in the event of leaving AMA> patient accepts all risks. IV removed. Patient will be called and informed of prescriptions.
== END 2025-04-06 08:00 | disposition left against medical advice (07) | DRG 291 ==
LOC: ER 13:08 → CSU 13:10
PROVIDERS: Internal Medicine; Nurse Practitioner Family; Admitting Provider Student in an Organized Health Care Education/Training Program; Emergency Provider Emergency Medicine; PCP Internal Medicine; Visit Provider Student in an Organized Health Care Education/Training Program
DX: I11.0 Hypertensive heart disease with heart failure (principal); I50.23 Acute on chronic systolic (congestive) heart failure; I24.89 Other forms of acute ischemic heart disease; I48.91 Unspecified atrial fibrillation; I25.10 Atherosclerotic heart disease of native coronary artery without angina pectoris; Z53.29 Procedure and treatment not carried out because of patient's decision for other reasons; J43.1 Panlobular emphysema; E78.5 Hyperlipidemia, unspecified; I42.8 Other cardiomyopathies; Z79.82 Long term (current) use of aspirin; Z79.891 Long term (current) use of opiate analgesic; Z79.84 Long term (current) use of oral hypoglycemic drugs; Z95.810 Presence of automatic (implantable) cardiac defibrillator; Z87.891 Personal history of nicotine dependence; Z86.19 Personal history of other infectious and parasitic diseases; Z90.49 Acquired absence of other specified parts of digestive tract
CPT/HCPCS: 36415; 36416; 71045; 80048; 80053; 80061; 80162; 81001; 82607; 82746; 82962; 83036; 83540; 83550; 83735; 83880; 84100; 84443; 84484; 85025; 85610; 93005; 96365; 96366; 96376; 99285; A4222; J0283; J1160; J1938; J2470; J3475; J7040; J9999

== ENCOUNTER → 2025-05-17 12:36 | Outpatient (BNVA) | payer OTHER, MEDICAID, SELFPAY | PROVIDERS: PCP Internal Medicine; Visit Provider Internal Medicine Cardiovascular Disease | DX: I48.91 Unspecified atrial fibrillation (principal); I73.9 Peripheral vascular disease, unspecified; I42.8 Other cardiomyopathies | CPT/HCPCS: 80162; 84443 ==

== ENCOUNTER → 2025-07-11 12:43 | Outpatient (BNVA) | payer OTHER, MEDICAID, SELFPAY | PROVIDERS: PCP Internal Medicine; Visit Provider Internal Medicine Cardiovascular Disease | DX: Z45.02 Encounter for adjustment and management of automatic implantable cardiac defibrillator (principal) | CPT/HCPCS: 93296 ==

== ENCOUNTER → 2025-08-08 15:31 | Outpatient (BNVA) | payer MEDICARE, MEDICAID, SELFPAY | PROVIDERS: PCP Internal Medicine; Visit Provider Internal Medicine Cardiovascular Disease | DX: I48.91 Unspecified atrial fibrillation (principal); Z79.01 Long term (current) use of anticoagulants; Z79.82 Long term (current) use of aspirin; E78.5 Hyperlipidemia, unspecified; I42.9 Cardiomyopathy, unspecified; I10 Essential (primary) hypertension; I49.3 Ventricular premature depolarization; I73.9 Peripheral vascular disease, unspecified; Z95.810 Presence of automatic (implantable) cardiac defibrillator; Z87.891 Personal history of nicotine dependence; R06.02 Shortness of breath | CPT/HCPCS: 36415; 80048; 83880; 99214 ==